=== PATIENT | male | born 1950 | race Hispanic/Latino ===

== ENCOUNTER 2021-05-18 15:00 | Inpatient (IN) | payer MEDICARE ==
[~2021-05-18] VITALS: Ht 167.6 cm; Wt 83.2 kg
[2021-05-18] MEDS: ISOSORBIDE MONO 30MG SR TAB PO SCH (15:33)
[2021-05-18] MEDS: LISINOPRIL 20 MG TABLET PO SCH (15:34)
[2021-05-18 15:46] LABS: BASOPHILS % (AUTO) 0.6 % (0.0-5.0); EOSINOPHILS % (AUTO) 2.6 % (0.0-8.0); HEMATOCRIT 36.8 % (42-54); LYMPHOCYTES % (AUTO) 29.2 % (21.0-51.0); MEAN CORPUSCULAR HEMOGLOBIN 30.4 pg (27.0-33.0); MEAN CORPUSCULAR HGB CONC 34.8 g/dL (32.0-36.0); MEAN CORPUSCULAR VOLUME 87.4 fL (79-99); MONOCYTES % (AUTO) 8.7 % (3.0-13.0); NEUTROPHILS % (AUTO) 57.5 % (40.0-77.0); PLATELET COUNT (AUTO) 141 K/uL (130-400); RED BLOOD CELL COUNT(AUTO) 4.21 MIL/uL (4.50-6.20); RED CELL DISTRIBUTION WIDTH 13.3 % (11.0-15.5); WHITE BLOOD COUNT (AUTO) 6.6 K/uL (4.8-10.8)
[2021-05-18 15:59] LABS: INR 1.05 (0.85-1.15); PROTHROMBIN TIME 11.4 SEC (9.6-11.6)
[2021-05-18 16:00] LABS: PARTIAL THROMBOPLASTIN TIME 26.2 SEC (26.3-35.5)
[2021-05-18] MEDS ORDERED: POTASSIUM CHLORIDE 10% ELIXIR 20 MEQ/15 ML UDCUP PO PRN (16:00)
[2021-05-18] MEDS ORDERED: KCL 20 MEQ ERTAB PO PRN (16:00)
[2021-05-18] MEDS ORDERED: POTASSIUM CHLORIDE 20MEQ/100ML 100 ML IV PRN (16:00)
[2021-05-18] MEDS ORDERED: LIDOCAINE HCL-MPF 1% 2ML VIAL IJ PRN (16:00)
[2021-05-18] MEDS ORDERED: ONDANSETRON 4MG INJ IV PRN (16:00)
[2021-05-18] MEDS ORDERED: ACETAMINOPHEN 325 MG TAB PO PRN ×2 (16:00)
[2021-05-18] MEDS ORDERED: DEXTROSE 50%-WATER 50 ML DISP.SYRIN IV PRN (16:00)
[2021-05-18] MEDS ORDERED: GLUCAGON 1MG KIT 1 MG ML IM PRN (16:00)
[2021-05-18] MEDS: ASPIRIN 81MG CHEW TAB PO SCH (16:16)
[2021-05-18] MEDS: INSULIN HUMULIN R 100 UNIT/ML 3ML SQ SCH ×2 (16:30→21:00)
[2021-05-18] MEDS ORDERED: INSULIN R PO SS1 SQ SCH (16:30)
[2021-05-18 16:53] LABS: CREATININE 1.1 mg/dL (0.5-1.5); POTASSIUM 3.8 mmol/L (3.5-5.1)
[2021-05-18 17:03] LABS: HEMOGLOBIN A1C 6.8 % (4.0-6.0)
[2021-05-18 18:04] LABS: APPEARANCE,URINE Clear (CLEAR); BILIRUBIN,URINE Negative (NEGATIVE); COLOR,URINE Yellow (YELLOW); GLUCOSE, URINE (UA) Negative (NEGATIVE); KETONES,URINE Negative (NEGATIVE); LEUKOCYTE ESTERASE ,URINE Negative (NEGATIVE); NITRATE,URINE Negative (NEGATIVE); OCCULT BLOOD,URINE Negative (NEGATIVE); PROTEIN,URINE POS 2+ mg/dL (NEGATIVE)
[2021-05-18 18:13] LABS: BACTERIA,URINE Rare /HPF (None Seen); RBC,URINE 0-1 /HPF (0-1); SQUAMOUS EPITHELIAL CELL,UR Rare /HPF (0-2); WBC,URINE 0-1 /HPF (0-1)
[2021-05-18] MEDS ORDERED: METO25TA6 PO (18:43)
[2021-05-18] MEDS ORDERED: GLYB5TAB8 PO (18:44)
[2021-05-18] MEDS ORDERED: ISOS20TA85 PO (18:44)
[2021-05-18] MEDS ORDERED: LISI20TA24 PO (18:45)
[2021-05-18] MEDS ORDERED: PRAV40TA3 PO (18:45)
[2021-05-18] MEDS ORDERED: METOPROLOL TARTRATE 25 MG TAB PO SCH (21:00)
[2021-05-18] MEDS ORDERED: ATORVASTATIN 10 MG TABLET PO SCH (21:00)
[2021-05-18] MEDS: FAMOTIDINE 20MG VIAL IV SCH (22:18)
[2021-05-18 23:30] VITALS: BP 168/83
[2021-05-19] VITALS (15 sets, daily range): BP systolic 135–172; BP diastolic 63–98
[2021-05-19 04:46] LABS: CHOLESTEROL 152 mg/dL (<200); HDL CHOLESTEROL 35 mg/dL (29-71); LDL DIRECT 81 mg/dL (0-99); TRIGLYCERIDES 166 mg/dL (30-200)
[2021-05-19] MEDS: INSULIN HUMULIN R 100 UNIT/ML 3ML SQ SCH ×3 (06:12→16:30)
[2021-05-19] MEDS ORDERED: IOHEXOL 350 MG/ML 100ML INFUS..BTL IV ONE (07:08)
[2021-05-19] MEDS ORDERED: NITROGLYCERIN 50MG VIAL IV ONE (07:08)
[2021-05-19] MEDS ORDERED: HEPARIN 10,000 UNIT/10ML (1,000 UNIT/ML) VIAL ONE ×3 (07:08→20:20)
[2021-05-19] MEDS ORDERED: IOHEXOL-350 50ML VIAL IV ONE (07:09)
[2021-05-19] MEDS ORDERED: LIDOCAINE HCL 400MG/20ML VIAL ONE (07:09)
[2021-05-19] MEDS ORDERED: MIDAZOLAM HCL 1 MG/ML 2ML VIAL ONE ×2 (07:31→19:43)
[2021-05-19] MEDS ORDERED: GLUCAGON 1MG KIT 1 MG ML IM PRN ×2 (08:00→21:30)
[2021-05-19] MEDS ORDERED: DEXTROSE 50%-WATER 50 ML DISP.SYRIN IV PRN ×2 (08:00→21:30)
[2021-05-19] MEDS: FAMOTIDINE 20MG VIAL IV SCH (08:37)
[2021-05-19] MEDS: ASPIRIN 81MG CHEW TAB PO SCH (08:37)
[2021-05-19] MEDS: LISINOPRIL 20 MG TABLET PO SCH (08:40)
[2021-05-19] MEDS: ISOSORBIDE MONO 30MG SR TAB PO SCH (08:40)
[2021-05-19] MEDS ORDERED: NOREPINEPHRINE BITARTRATE 8 MG in 0.9% NACL 250ML 250 ML IV PRN (16:00)
[2021-05-19] MEDS ORDERED: EPINEPHRINE PF 1MG AMP 10 MG in 0.9% NACL 250ML 240 ML IV PRN (16:00)
[2021-05-19] MEDS ORDERED: AMINOCAPROIC ACID 5,000MG VIAL 15,000 MG in 0.9% NACL 500ML IV.SOLN 420 ML IV PRN (16:00)
[2021-05-19 16:05] LABS: HEMATOCRIT 38.4 % (42-54); MEAN CORPUSCULAR HEMOGLOBIN 29.9 pg (27.0-33.0); MEAN CORPUSCULAR HGB CONC 33.6 g/dL (32.0-36.0); MEAN CORPUSCULAR VOLUME 88.9 fL (79-99); RED BLOOD CELL COUNT(AUTO) 4.32 MIL/uL (4.50-6.20); RED CELL DISTRIBUTION WIDTH 13.1 % (11.0-15.5); WHITE BLOOD COUNT (AUTO) 5.2 K/uL (4.8-10.8)
[2021-05-19 16:17] LABS: INR 1.1 (0.85-1.15); PROTHROMBIN TIME 11.9 SEC (9.6-11.6)
[2021-05-19 16:18] LABS: PARTIAL THROMBOPLASTIN TIME 27.1 SEC (26.3-35.5)
[2021-05-19 16:22] LABS: HEMOGLOBIN A1C 6.8 % (4.0-6.0)
[2021-05-19 16:42] LABS: CREATININE 1.3 mg/dL (0.5-1.5); POTASSIUM 3.5 mmol/L (3.5-5.1)
[2021-05-19 16:43] LABS: ALBUMIN 3.1 g/dL (3.5-5.0); BILIRUBIN,TOTAL 0.9 mg/dL (0.2-1.0); TOTAL PROTEIN, SERUM 6.9 g/dL (6.0-8.3)
[2021-05-19] MEDS ORDERED: CEFAZOLIN SODIUM 1 GM VIAL ONE (17:49)
[2021-05-19] MEDS ORDERED: PAPAVERINE HCL 30 MG/ML 2ML VIAL ONE (17:50)
[2021-05-19] MEDS ORDERED: NITROGLYCERIN 50MG/D5W 250ML 1 BOT ONE (18:03)
[2021-05-19] MEDS ORDERED: PROTAMINE SULFATE 10 MG/ML 25ML VIAL IV ONE (19:42)
[2021-05-19] MEDS ORDERED: LIDOCAINE PF 100MG/5ML (2%) SYRINGE 5ML ONE (19:42)
[2021-05-19] MEDS ORDERED: NOREPINEPHRINE BITARTRATE 1 MG/1 ML ML IV ONE (19:42)
[2021-05-19] MEDS ORDERED: EPINEPHRINE PF 1MG AMP ONE (19:42)
[2021-05-19] MEDS ORDERED: SODIUM BICARB 50MEQ 50ML VIAL 100 ML ONE (19:42)
[2021-05-19] MEDS ORDERED: AMINOCAPROIC ACID 5,000MG VIAL ONE (19:42)
[2021-05-19] MEDS ORDERED: ESMOLOL HCL 10 MG/ML 10 ML VIAL ONE (19:42)
[2021-05-19] MEDS ORDERED: FENTANYL CITRATE PF 50 MCG/1 ML 20ML VIAL IJ ONE (19:42)
[2021-05-19] MEDS ORDERED: KETAMINE 50MG/ML SYRINGE 50 MG/ML DISP.SYRIN IV ONE (19:43)
[2021-05-19] MEDS ORDERED: PROPOFOL 10 MG/ML 20ML VIAL IV ONE (19:43)
[2021-05-19] MEDS ORDERED: ROCURONIUM 10MG/1ML SYR 10 MG/ML ML ONE (19:43)
[2021-05-19] MEDS ORDERED: CLINDAMYCIN 900MG/6ML INJ ONE (19:55)
[2021-05-19 20:42] LABS: ABG BASE EXCESS -3.4 mmol/L (-2.0-3.0); ABG HCO3 22.3 mmol/L (21.0-28.0); ABG OXYGEN SATURATION 99.4 % (95.0-99.0); ABG PCO2 43 mmHg (35-48)
[2021-05-19] MEDS ORDERED: 0.9%NACL 10ML VIAL IVP PRN (21:30)
[2021-05-19] MEDS ORDERED: NITROGLYCERIN 50MG/D5W 250ML 250 BOT IV SCH (21:30)
[2021-05-19] MEDS ORDERED: ACETAMINOPHEN 650 MG SUPPOSITORY RC PRN (21:30)
[2021-05-19] MEDS ORDERED: 0.9% NACL 500ML IV.SOLN 500 ML IV SCH (21:30)
[2021-05-19] MEDS ORDERED: AMINOCAPROIC ACID 5,000MG VIAL 15,000 MG in 0.9% NACL 250ML 250 ML IV SCH (21:30)
[2021-05-19] MEDS ORDERED: PROPOFOL 1000 MG/100 ML 100 ML IV PRN (21:30)
[2021-05-19] MEDS ORDERED: CALCIUM GLUC 1GM 1 GM in 0.9%NACL 50ML 50 ML IV PRN (21:30)
[2021-05-19] MEDS ORDERED: TRAMADOL HCL 50 MG TABLET PO PRN (21:30)
[2021-05-19] MEDS ORDERED: INSULIN REGULAR, HUMAN 3ML 100 UNIT in 0.9%NACL 100ML 99 ML IV SCH ×2 (21:30)
[2021-05-19] MEDS ORDERED: MAGNESIUM 2GM PREMIX 50ML 50 ML IV PRN (21:30)
[2021-05-19] MEDS ORDERED: 0.9%NACL 1000ML 1,000 ML IV SCH (21:30)
[2021-05-19] MEDS ORDERED: POTASSIUM PHOS 15 mMOL+NS250ML 250 ML IV PRN (21:30)
[2021-05-19] MEDS ORDERED: EPINEPHRINE PF 1MG AMP 10 MG in DEXTROSE 5%-WATER 250 ML IV PRN (21:30)
[2021-05-19] MEDS ORDERED: NOREPINEPHRIN 4MG/NS 250ML 250 ML IV PRN (21:30)
[2021-05-19] MEDS ORDERED: ACETAMINOPHEN 325 MG TAB PO PRN (21:30)
[2021-05-19] MEDS ORDERED: ONDANSETRON 4MG INJ IV PRN (21:30)
[2021-05-19] MEDS ORDERED: MORPHINE 2 MG SYG IV PRN ×2 (21:30)
[2021-05-19 21:39] LABS: ABG HCO3 19.7 mmol/L (21.0-28.0); ABG OXYGEN SATURATION 99.2 % (95.0-99.0); ABG PCO2 35 mmHg (35-48)
[2021-05-19] MEDS ORDERED: ASPIRIN 81MG CHEW TAB NG ONE (22:00)
[2021-05-19] MEDS ORDERED: NOREPINEPHRIN 8MG/250ML NS PMX 250 ML IV PRN (22:00)
[2021-05-19 22:42] LABS: HEMATOCRIT 32.7 % (42-54); MEAN CORPUSCULAR HEMOGLOBIN 29.8 pg (27.0-33.0); MEAN CORPUSCULAR HGB CONC 33.3 g/dL (32.0-36.0); MEAN CORPUSCULAR VOLUME 89.3 fL (79-99); RED BLOOD CELL COUNT(AUTO) 3.66 MIL/uL (4.50-6.20); RED CELL DISTRIBUTION WIDTH 13.2 % (11.0-15.5); WHITE BLOOD COUNT (AUTO) 15.2 K/uL (4.8-10.8)
[2021-05-19 22:53] LABS: INR 1.29 (0.85-1.15); PROTHROMBIN TIME 13.7 SEC (9.6-11.6)
[2021-05-19 22:54] LABS: CREATININE 1.1 mg/dL (0.5-1.5); MAGNESIUM 1.3 mg/dL (1.80-2.40); PARTIAL THROMBOPLASTIN TIME 28.2 SEC (26.3-35.5); PHOSPHORUS 4.3 mg/dL (2.5-4.9); POTASSIUM 3.4 mmol/L (3.5-5.1)
[2021-05-19 22:55] LABS: ABG BASE EXCESS -2.4 mmol/L (-2.0-3.0); ABG HCO3 22.3 mmol/L (21.0-28.0); ABG OXYGEN SATURATION 98.2 % (95.0-99.0); ABG PCO2 38 mmHg (35-48)
[2021-05-19] MEDS: POTASSIUM CHLORIDE 20MEQ/100ML 100 ML IV PRN (23:19)
[2021-05-20] VITALS (46 sets, daily range): BP systolic 76–179; BP diastolic 42–91
[2021-05-20 00:10] LABS: ABG BASE EXCESS -3.2 mmol/L (-2.0-3.0); ABG HCO3 20.4 mmol/L (21.0-28.0); ABG OXYGEN SATURATION 97.3 % (95.0-99.0); ABG PCO2 32 mmHg (35-48)
[2021-05-20] MEDS: SODIUM BICARB 50MEQ 50ML VIAL IV PRN ×2 (00:15→00:29)
[2021-05-20 01:26] LABS: ABG HCO3 23.8 mmol/L (21.0-28.0); ABG OXYGEN SATURATION 98.3 % (95.0-99.0); ABG PCO2 36 mmHg (35-48)
[2021-05-20 03:35] LABS: ABG BASE EXCESS 0.8 mmol/L (-2.0-3.0); ABG HCO3 24.5 mmol/L (21.0-28.0); ABG OXYGEN SATURATION 98.6 % (95.0-99.0); ABG PCO2 36 mmHg (35-48)
[2021-05-20 03:57] LABS: HEMATOCRIT 31.5 % (42-54); MEAN CORPUSCULAR HEMOGLOBIN 29.8 pg (27.0-33.0); MEAN CORPUSCULAR HGB CONC 33.7 g/dL (32.0-36.0); MEAN CORPUSCULAR VOLUME 88.5 fL (79-99); RED BLOOD CELL COUNT(AUTO) 3.56 MIL/uL (4.50-6.20); RED CELL DISTRIBUTION WIDTH 13.6 % (11.0-15.5); WHITE BLOOD COUNT (AUTO) 21.9 K/uL (4.8-10.8)
[2021-05-20 04:09] LABS: INR 1.21 (0.85-1.15)
[2021-05-20 04:10] LABS: CREATININE 1.6 mg/dL (0.5-1.5); MAGNESIUM 1.5 mg/dL (1.80-2.40); PHOSPHORUS 3.3 mg/dL (2.5-4.9); POTASSIUM 4.1 mmol/L (3.5-5.1)
[2021-05-20 04:11] LABS: PARTIAL THROMBOPLASTIN TIME 26.9 SEC (26.3-35.5)
[2021-05-20 05:02] LABS: ABG BASE EXCESS 0.7 mmol/L (-2.0-3.0); ABG HCO3 25.2 mmol/L (21.0-28.0); ABG OXYGEN SATURATION 98.2 % (95.0-99.0); ABG PCO2 40 mmHg (35-48)
[2021-05-20] MEDS: CLINDAMYCIN IVPB 900MG/50ML 50 ML IV SCH ×3 (05:10→21:50)
[2021-05-20] MEDS: ALBUMIN (HUMAN) 5% 250 ML IV PRN ×2 (07:25→07:36)
[2021-05-20] MEDS: TRAMADOL HCL 50 MG TABLET PO PRN ×3 (07:25→18:25)
[2021-05-20] MEDS ORDERED: ALBUMIN (HUMAN) 5% 250 ML IV ONE (07:35)
[2021-05-20] MEDS: FAMOTIDINE 20MG VIAL IV SCH ×2 (07:47→21:00)
[2021-05-20] MEDS: FUROSEMIDE 20MG VIAL IV SCH (07:47)
[2021-05-20] MEDS: ASPIRIN 81MG CHEW TAB PO SCH (07:48)
[2021-05-20] MEDS ORDERED: FAMOTIDINE 20MG TAB ONE (20:33)
[2021-05-20] MEDS: ATORVASTATIN 40 MG TABLET PO SCH (21:50)
[2021-05-21] VITALS (14 sets, daily range): BP systolic 95–162; BP diastolic 42–77
[2021-05-21 04:08] LABS: HEMATOCRIT 26.1 % (42-54); MEAN CORPUSCULAR HEMOGLOBIN 29.3 pg (27.0-33.0); MEAN CORPUSCULAR HGB CONC 32.2 g/dL (32.0-36.0); MEAN CORPUSCULAR VOLUME 90.9 fL (79-99); RED BLOOD CELL COUNT(AUTO) 2.87 MIL/uL (4.50-6.20); RED CELL DISTRIBUTION WIDTH 13.7 % (11.0-15.5); WHITE BLOOD COUNT (AUTO) 11.2 K/uL (4.8-10.8)
[2021-05-21 04:24] LABS: CREATININE 1.5 mg/dL (0.5-1.5); POTASSIUM 3.4 mmol/L (3.5-5.1)
[2021-05-21] MEDS: POTASSIUM CHLORIDE 20MEQ/100ML 100 ML IV PRN ×2 (04:41→08:07)
[2021-05-21] MEDS: FAMOTIDINE 20MG VIAL IV SCH (08:05)
[2021-05-21] MEDS: ASPIRIN 81MG CHEW TAB PO SCH (08:05)
[2021-05-21] MEDS: FUROSEMIDE 20MG VIAL IV SCH (08:05)
[2021-05-21] MEDS: FAMOTIDINE 20MG TAB PO SCH ×2 (09:00→21:23)
[2021-05-21] MEDS: METOPROLOL TARTRATE 25 MG TAB PO SCH ×2 (09:00→21:23)
[2021-05-21] MEDS: FUROSEMIDE 20 MG TABLET PO SCH (09:00)
[2021-05-21] MEDS: INSULIN HUMULIN R 100 UNIT/ML 3ML SQ SCH ×3 (11:51→21:24)
[2021-05-21] MEDS ORDERED: DIPHENHYDRAMINE HCL 25 MG CAPSULE PO ONE (14:30)
[2021-05-21] MEDS: ACETAMINOPHEN 325 MG TAB PO PRN (14:32)
[2021-05-21] MEDS ORDERED: HALOPERIDOL INJ 5 MG/ML VIAL ONE (15:40)
[2021-05-21] MEDS: HALOPERIDOL INJ 5 MG/ML VIAL IV PRN (15:46)
[2021-05-21] MEDS ORDERED: HALOPERIDOL INJ 5 MG/ML VIAL IM SCH (16:00)
[2021-05-21] MEDS ORDERED: DEXMEDETOMIDINE 400MCG/NS100ML IV SCH (16:00)
[2021-05-21] MEDS: ATORVASTATIN 40 MG TABLET PO SCH (21:23)
[2021-05-22 03:52] VITALS: BP 127/74
[2021-05-22 03:56] LABS: MEAN CORPUSCULAR HEMOGLOBIN 29.8 pg (27.0-33.0); MEAN CORPUSCULAR HGB CONC 33.9 g/dL (32.0-36.0); MEAN CORPUSCULAR VOLUME 87.8 fL (79-99); RED BLOOD CELL COUNT(AUTO) 3.19 MIL/uL (4.50-6.20); RED CELL DISTRIBUTION WIDTH 13.8 % (11.0-15.5); WHITE BLOOD COUNT (AUTO) 11.2 K/uL (4.8-10.8)
[2021-05-22 04:13] LABS: CREATININE 1.4 mg/dL (0.5-1.5); POTASSIUM 3.7 mmol/L (3.5-5.1)
[2021-05-22] MEDS: HALOPERIDOL INJ 5 MG/ML VIAL IV PRN (04:44)
[2021-05-22] MEDS: INSULIN HUMULIN R 100 UNIT/ML 3ML SQ SCH ×4 (06:12→21:00)
[2021-05-22] MEDS: FAMOTIDINE 20MG TAB PO SCH ×2 (10:02→20:56)
[2021-05-22] MEDS: FUROSEMIDE 20 MG TABLET PO SCH (10:03)
[2021-05-22] MEDS: ASPIRIN 81MG CHEW TAB PO SCH (10:03)
[2021-05-22] MEDS: METOPROLOL TARTRATE 25 MG TAB PO SCH ×2 (10:03→20:56)
[2021-05-22] MEDS: ENOXAPARIN SODIUM 30 MG/0.3 ML SQ SCH (10:04)
[2021-05-22 12:00] VITALS: BP 129/78
[2021-05-22 16:00] VITALS: BP 160/88
[2021-05-22] MEDS ORDERED: DiphenhydrAMINE HCL 50 MG/ML VIAL IV ONE (19:00)
[2021-05-22 20:00] VITALS: BP 161/84
[2021-05-22] MEDS ORDERED: DiphenhydrAMINE HCL 50 MG/ML VIAL ONE (20:47)
[2021-05-22] MEDS: ATORVASTATIN 40 MG TABLET PO SCH (20:56)
[2021-05-22] MEDS: ACETAMINOPHEN 325 MG TAB PO PRN (20:58)
[2021-05-23] VITALS: BP 164/68
[2021-05-23] MEDS: HALOPERIDOL INJ 5 MG/ML VIAL IV PRN (02:12)
[2021-05-23 04:00] VITALS: BP 160/77
[2021-05-23 05:10] LABS: HEMATOCRIT 27.8 % (42-54); MEAN CORPUSCULAR HEMOGLOBIN 30.1 pg (27.0-33.0); MEAN CORPUSCULAR HGB CONC 33.1 g/dL (32.0-36.0); MEAN CORPUSCULAR VOLUME 90.8 fL (79-99); RED BLOOD CELL COUNT(AUTO) 3.06 MIL/uL (4.50-6.20); RED CELL DISTRIBUTION WIDTH 13.8 % (11.0-15.5)
[2021-05-23 05:24] LABS: CREATININE 1.2 mg/dL (0.5-1.5); PHOSPHORUS 2.5 mg/dL (2.5-4.9); POTASSIUM 3.1 mmol/L (3.5-5.1)
[2021-05-23] MEDS ORDERED: LIDOCAINE HCL-MPF 1% 2ML VIAL IV PRN (07:30)
[2021-05-23] MEDS ORDERED: KCL 20 MEQ ERTAB PO PRN (07:30)
[2021-05-23] MEDS ORDERED: POTASSIUM CHLORIDE 20MEQ/100ML 100 ML IV PRN (07:30)
[2021-05-23] MEDS ORDERED: POTASSIUM CHLORIDE 10% ELIXIR 20 MEQ/15 ML UDCUP PO PRN (07:30)
[2021-05-23 07:54] VITALS: BP 151/86
[2021-05-23] MEDS ORDERED: LOSARTAN 25 MG TABLET PO SCH (09:00)
[2021-05-23] MEDS: METOPROLOL TARTRATE 25 MG TAB PO SCH ×2 (11:04→21:27)
[2021-05-23] MEDS: ASPIRIN 81MG CHEW TAB PO SCH (11:05)
[2021-05-23] MEDS: FUROSEMIDE 20 MG TABLET PO SCH (11:05)
[2021-05-23] MEDS: FAMOTIDINE 20MG TAB PO SCH ×2 (11:05→21:23)
[2021-05-23] MEDS: INSULIN HUMULIN R 100 UNIT/ML 3ML SQ SCH ×4 (11:09→21:00)
[2021-05-23 11:30] VITALS: BP 138/75
[2021-05-23 16:01] VITALS: BP 152/86
[2021-05-23] MEDS: ENOXAPARIN SODIUM 30 MG/0.3 ML SQ SCH (17:22)
[2021-05-23 19:30] VITALS: BP_SYST 111; BP_SYST 158; BP_DIAS 71; BP_DIAS 93
[2021-05-23] MEDS ORDERED: MEMANTINE HCL 5 MG TABLET PO SCH (21:00)
[2021-05-23] MEDS ORDERED: HYDROXYZINE 25 MG TABLET PO ONE (21:00)
[2021-05-23] MEDS: ATORVASTATIN 40 MG TABLET PO SCH (21:23)
[2021-05-24] VITALS: BP 165/93
[2021-05-24] MEDS: HALOPERIDOL INJ 5 MG/ML VIAL IV PRN (02:54)
[2021-05-24] MEDS: INSULIN HUMULIN R 100 UNIT/ML 3ML SQ SCH ×3 (07:25→16:12)
[2021-05-24 08:59] VITALS: BP 156/95
[2021-05-24] MEDS ORDERED: LOSARTAN 25 MG TABLET PO SCH (09:00)
[2021-05-24] MEDS: FAMOTIDINE 20MG TAB PO SCH (09:43)
[2021-05-24] MEDS: ENOXAPARIN SODIUM 30 MG/0.3 ML SQ SCH (09:43)
[2021-05-24] MEDS: FUROSEMIDE 20 MG TABLET PO SCH (09:43)
[2021-05-24] MEDS: ASPIRIN 81MG CHEW TAB PO SCH (09:43)
[2021-05-24] MEDS: METOPROLOL TARTRATE 25 MG TAB PO SCH (09:44)
[2021-05-24 12:56] VITALS: BP 141/80
[2021-05-24] MEDS ORDERED: METOPROLOL TARTRATE 25 MG TAB PO SCH (21:00)
== END 2021-05-24 16:50 | DRG 233 ==
LOC: EDH 15:00 → EDHIP 15:01 → 4BH 22:16 → 2CV 05-19 22:11 → 2DH 05-20 22:25
PROVIDERS: ADMIT Internal Medicine; ATTEND Internal Medicine
PROC: 06BQ4ZZ Excision of Left Saphenous Vein, Percutaneous Endoscopic Approach (ICD-10-PCS; 2021-05-19)
PROC: B2111ZZ Fluoroscopy of Multiple Coronary Arteries using Low Osmolar Contrast (ICD-10-PCS; 2021-05-19)
PROC: 02100Z9 Bypass Coronary Artery, One Artery from Left Internal Mammary, Open Approach (ICD-10-PCS; principal; 2021-05-19 19:42)
PROC: 4A023N7 Measurement of Cardiac Sampling and Pressure, Left Heart, Percutaneous Approach (ICD-10-PCS; 2021-05-19 19:42)
PROC: 021109W Bypass Coronary Artery, Two Arteries from Aorta with Autologous Venous Tissue, Open Approach (ICD-10-PCS; 2021-05-19 19:42)
DX: I25.110 Atherosclerotic heart disease of native coronary artery with unstable angina pectoris (principal); J95.1 Acute pulmonary insufficiency following thoracic surgery; F05 Delirium due to known physiological condition; E11.51 Type 2 diabetes mellitus with diabetic peripheral angiopathy without gangrene; E66.9 Obesity, unspecified; Z68.31 Body mass index [BMI] 31.0-31.9, adult; E78.5 Hyperlipidemia, unspecified; Z20.822 Contact with and (suspected) exposure to COVID-19; F41.1 Generalized anxiety disorder; E78.00 Pure hypercholesterolemia, unspecified; E87.70 Fluid overload, unspecified; D64.9 Anemia, unspecified; F03.90 Unspecified dementia, unspecified severity, without behavioral disturbance, psychotic disturbance, mood disturbance, and anxiety; I11.0 Hypertensive heart disease with heart failure; I50.9 Heart failure, unspecified; Z88.0 Allergy status to penicillin; I25.2 Old myocardial infarction; Z79.899 Other long term (current) drug therapy; Z87.891 Personal history of nicotine dependence; Z82.49 Family history of ischemic heart disease and other diseases of the circulatory system
CPT/HCPCS: 36415; 71045; 80048; 80053; 80061; 81001; 82435; 82803; 82947; 82948; 83036; 83605; 83735; 83880; 84100; 84132; 84295; 84484; 85018; 85025; 85027; 85347; 85610; 85730; 86850; 86900; 86901; 86923; 87635; 93005; 93458; 94002; 94003; 94150; 97039; 99156; 99157; A7048; C1760; C1894; G0378; J0171; J0690; J1200; J1630; J1644; J1650; J1815; J1940; J2001; J2250; J2405; J2440; J2704; J2720; J3010; J3475; J3480; J3490; J7030; J7040; P9045; Q0163; Q9967

== ENCOUNTER → 2021-07-19 | Outpatient (CLI) | payer MEDICARE, OTHER | END | disposition home or self-care (01) | LOC: SHCH 12:33 | PROVIDERS: ATTEND Internal Medicine Cardiovascular Disease | DX: I73.9 Peripheral vascular disease, unspecified (principal) | CPT/HCPCS: 93925 ==

== ENCOUNTER → 2022-03-08 | Outpatient (CLI) | payer OTHER ==
[~2022-03-08] MED LIST: APIX5TAB PO; ATOR40TA71 PO; CARV6.25 PO; FURO20TA4 PO; GLYB5TAB8 PO; ISOS30TA92 PO; LISI1TAB51 PO; MEMA1TAB2 PO; MEMA5TAB42 PO; NITR0.4T50 SL; POTA-79 PO
== END | disposition home or self-care (01) ==
LOC: RAH 10:41
PROVIDERS: ATTEND Internal Medicine Cardiovascular Disease
DX: I73.9 Peripheral vascular disease, unspecified (principal); I10 Essential (primary) hypertension; E11.9 Type 2 diabetes mellitus without complications; E78.5 Hyperlipidemia, unspecified; I25.119 Atherosclerotic heart disease of native coronary artery with unspecified angina pectoris; R60.0 Localized edema; I80.3 Phlebitis and thrombophlebitis of lower extremities, unspecified
CPT/HCPCS: 93971

== ENCOUNTER → 2022-03-15 | Outpatient (CLI) | payer OTHER ==
[~2022-03-15] MED LIST changes: +ALBUMIN (HUMAN) 25% 200 ML IV SCH; -APIX5TAB PO; -CARV6.25 PO; -MEMA5TAB42 PO
[2022-03-15 10:13] LABS: INR 1.15 (0.85-1.15); PROTHROMBIN TIME 12.4 SEC (9.6-11.6)
[2022-03-15 10:14] LABS: PARTIAL THROMBOPLASTIN TIME 31.1 SEC (26.3-35.5)
[2022-03-15 16:11] LABS: APPEARANCE BODY FLUID SLIGHTLY CLOUDY (CLEAR); BODY FLUID WBC 354 /cu. mm.; COLOR,BODY FLUID YELLOW (LT YELLOW); SPECIMENTYPE,BODY FLUID ASCITES; TOTAL VOLUME,BODY FLUID 6700 mL
[2022-03-15 16:12] LABS: BODY FLUID RBC 128 /cu. mm.
[2022-03-15 16:44] LABS: BF LYMPHOCYTE 54 %; BF MESOTHELIAL 8 %; BF MONOCYTE 4 %
== END | disposition home or self-care (01) ==
LOC: RAH 09:21
PROVIDERS: ATTEND Internal Medicine Gastroenterology
DX: R18.8 Other ascites (principal); K74.69 Other cirrhosis of liver; D64.9 Anemia, unspecified; I11.0 Hypertensive heart disease with heart failure; I50.9 Heart failure, unspecified; I25.10 Atherosclerotic heart disease of native coronary artery without angina pectoris; E66.9 Obesity, unspecified; E11.9 Type 2 diabetes mellitus without complications; E78.00 Pure hypercholesterolemia, unspecified; Z79.01 Long term (current) use of anticoagulants; Z79.899 Other long term (current) drug therapy
CPT/HCPCS: 49083; 89051; 85610; 85730; 87071; 87205; 36415; C1729; 96365

== ENCOUNTER 2022-03-26 09:18 | Day surgery (SDC) | payer OTHER ==
[2022-03-23 11:17] LABS: BASOPHILS % (AUTO) 0.6 % (0.0-5.0); EOSINOPHILS % (AUTO) 3.9 % (0.0-8.0); LYMPHOCYTES % (AUTO) 31.6 % (21.0-51.0); MEAN CORPUSCULAR HEMOGLOBIN 27.8 pg (27.0-33.0); MEAN CORPUSCULAR HGB CONC 31.6 g/dL (32.0-36.0); MEAN CORPUSCULAR VOLUME 88.1 fL (79-99); MONOCYTES % (AUTO) 11.2 % (3.0-13.0); NEUTROPHILS % (AUTO) 52.1 % (40.0-77.0); PLATELET COUNT (AUTO) 155 K/uL (130-400); RED BLOOD CELL COUNT(AUTO) 3.52 MIL/uL (4.50-6.20); RED CELL DISTRIBUTION WIDTH 15.2 % (11.0-15.5); WHITE BLOOD COUNT (AUTO) 5.1 K/uL (4.8-10.8)
[2022-03-23 11:40] LABS: CREATININE 1.5 mg/dL (0.5-1.5); POTASSIUM 4.8 mmol/L (3.5-5.1)
[2022-03-23 11:48] LABS: INR 1.24 (0.85-1.15); PROTHROMBIN TIME 13.4 SEC (9.6-11.6)
[2022-03-23 11:49] LABS: PARTIAL THROMBOPLASTIN TIME 34.4 SEC (26.3-35.5)
[2022-03-23 14:54] VITALS: BP 100/63
[~2022-03-26] VITALS: Ht 165.1 cm; Wt 83.9 kg
[~2022-03-26 09:18] MED LIST changes: -ALBUMIN (HUMAN) 25% 200 ML IV SCH
[2022-03-26 09:47] VITALS: BP 143/70
[2022-03-26] MEDS ORDERED: LIDOCAINE HCL 1% 20 ML VIAL ONE (12:21)
[2022-03-26] MEDS ORDERED: IOHEXOL-350 75 ML VIAL IV ONE (12:22)
[2022-03-26] MEDS ORDERED: MIDAZOLAM HCL 1 MG/ML 2ML VIAL ONE (12:22)
[2022-03-26] MEDS ORDERED: FENTANYL CITRATE PF 50 MCG/1 ML 2ML VIAL ONE (12:22)
[2022-03-26] MEDS ORDERED: 0.9%NACL 1000ML 1,000 ML IV ONE (12:32)
[2022-03-26 13:15] VITALS: BP 147/72
[2022-03-26 13:30] VITALS: BP 145/75
[2022-03-26 13:45] VITALS: BP 143/72
[2022-03-26 14:00] VITALS: BP 149/75
== END 2022-03-26 14:20 | disposition home or self-care (01) ==
LOC: DAH 09:18
PROVIDERS: ATTEND Student in an Organized Health Care Education/Training Program
DX: K80.13 Calculus of gallbladder with acute and chronic cholecystitis with obstruction (principal); Z86.718 Personal history of other venous thrombosis and embolism; K74.69 Other cirrhosis of liver; I10 Essential (primary) hypertension; E66.9 Obesity, unspecified; I25.10 Atherosclerotic heart disease of native coronary artery without angina pectoris; Z95.1 Presence of aortocoronary bypass graft; Z98.890 Other specified postprocedural states; Z88.0 Allergy status to penicillin; Z79.01 Long term (current) use of anticoagulants; Z90.49 Acquired absence of other specified parts of digestive tract; Z68.30 Body mass index [BMI] 30.0-30.9, adult
CPT/HCPCS: 80048; 85025; 85610; 85730; 36415; 37191; 82948 ×2; C1769; C1894; C1880; Q9965; A4663; J7030; J1644; Q9967; A4215; A6402; A4221; A6206; J2250; J3010

== ENCOUNTER 2022-03-28 09:00 | Inpatient (IN) | payer OTHER ==
[~2022-03-28] VITALS: Ht 165.1 cm; Wt 84.9 kg
[~2022-03-28 09:00] MED LIST changes: -LISI1TAB51 PO; -MEMA1TAB2 PO
[2022-03-28 11:42] LABS: BASOPHILS % (AUTO) 0.7 % (0.0-5.0); EOSINOPHILS % (AUTO) 4.1 % (0.0-8.0); HEMATOCRIT 33.1 % (42-54); MEAN CORPUSCULAR HEMOGLOBIN 27.6 pg (27.0-33.0); MEAN CORPUSCULAR HGB CONC 31.7 g/dL (32.0-36.0); MEAN CORPUSCULAR VOLUME 87.1 fL (79-99); MONOCYTES % (AUTO) 10.8 % (3.0-13.0); NEUTROPHILS % (AUTO) 56.1 % (40.0-77.0); PLATELET COUNT (AUTO) 205 K/uL (130-400); RED CELL DISTRIBUTION WIDTH 15.6 % (11.0-15.5); WHITE BLOOD COUNT (AUTO) 6.1 K/uL (4.8-10.8)
[2022-03-28 11:54] LABS: INR 1.08 (0.85-1.15); PROTHROMBIN TIME 11.7 SEC (9.6-11.6)
[2022-03-28 11:56] LABS: PARTIAL THROMBOPLASTIN TIME 28.5 SEC (26.3-35.5)
[2022-03-28 11:59] LABS: ALBUMIN 2.5 g/dL (3.5-5.0); CREATININE 1.4 mg/dL (0.5-1.5); POTASSIUM 4.4 mmol/L (3.5-5.1); TOTAL PROTEIN, SERUM 7.2 g/dL (6.0-8.3)
[2022-03-28 12:00] LABS: APPEARANCE,URINE CLEAR (CLEAR); BILIRUBIN,URINE NEGATIVE (NEGATIVE); COLOR,URINE LIGHT-YELLOW (YELLOW); GLUCOSE, URINE (UA) NEGATIVE (NEGATIVE); KETONES,URINE NEGATIVE (NEGATIVE); LEUKOCYTE ESTERASE ,URINE NEGATIVE Leu/uL (NEGATIVE); NITRATE,URINE NEGATIVE (NEGATIVE); OCCULT BLOOD,URINE NEGATIVE (NEGATIVE); PROTEIN,URINE NEGATIVE (NEGATIVE); UROBILINOGEN,URINE 0.2 mg/dL (0.2-1.0)
[2022-03-29] MEDS ORDERED: 0.9%NACL 1000ML 1,000 ML IV SCH (11:00)
[2022-03-30 11:55] VITALS: BP 127/65
[2022-03-30] MEDS ORDERED: CARV6.25 PO (12:51)
[2022-03-30] MEDS ORDERED: MEMA5TAB42 PO (12:51)
[2022-03-30] MEDS ORDERED: APIX5TAB PO (12:51)
[2022-04-02] VITALS (26 sets, daily range): BP systolic 97–142; BP diastolic 63–79
[2022-04-02] MEDS: VANCOMYCIN 1G/250ML KIT 250 ML IV SCH ×2 (06:00→08:30)
[2022-04-02] MEDS ORDERED: BUPIVACAINE/PF 0.5% 30ML VIAL ONE (06:29)
[2022-04-02] MEDS ORDERED: FAMOTIDINE 20MG VIAL IV ONE (07:40)
[2022-04-02] MEDS ORDERED: DEXTROSE 50%-WATER 50 ML DISP.SYRIN IV ONE (07:40)
[2022-04-02] MEDS ORDERED: LIDOCAINE PF 100MG/5ML (2%) SYRINGE 5ML ONE (07:47)
[2022-04-02] MEDS ORDERED: GLYCOPYRROLATE 1 MG/5 ML SYRINGE ONE (07:48)
[2022-04-02] MEDS ORDERED: ROCURONIUM BROMIDE 10MG/1ML 5ML VL ONE (07:48)
[2022-04-02] MEDS ORDERED: PROPOFOL 10 MG/ML 20ML VIAL IV ONE (07:48)
[2022-04-02] MEDS ORDERED: FENTANYL CITRATE PF 50 MCG/1 ML 2ML VIAL ONE ×2 (07:48→11:30)
[2022-04-02] MEDS ORDERED: NOREPINEPHRINE BITARTRATE 1 MG/1 ML ML IV ONE (07:58)
[2022-04-02] MEDS ORDERED: SUCCINYLCHOLINE 200MG/10ML SYR ONE (07:58)
[2022-04-02] MEDS ORDERED: INDOCYANINE GREEN 25 MG VIAL IJ ONE (08:05)
[2022-04-02] MEDS ORDERED: NEOSTIGMINE 5MG/5ML SYR IV ONE (10:26)
[2022-04-02] MEDS ORDERED: ONDANSETRON 4MG INJ ONE (10:48)
[2022-04-02 12:56] LABS: BASOPHILS % (AUTO) 0.3 % (0.0-5.0); EOSINOPHILS % (AUTO) 1.5 % (0.0-8.0); HEMATOCRIT 31.3 % (42-54); LYMPHOCYTES % (AUTO) 18.5 % (21.0-51.0); MEAN CORPUSCULAR HEMOGLOBIN 27.7 pg (27.0-33.0); MEAN CORPUSCULAR HGB CONC 31.9 g/dL (32.0-36.0); MEAN CORPUSCULAR VOLUME 86.7 fL (79-99); MONOCYTES % (AUTO) 5.4 % (3.0-13.0); NEUTROPHILS % (AUTO) 73.9 % (40.0-77.0); PLATELET COUNT (AUTO) 123 K/uL (130-400); RED BLOOD CELL COUNT(AUTO) 3.61 MIL/uL (4.50-6.20); RED CELL DISTRIBUTION WIDTH 15.2 % (11.0-15.5); WHITE BLOOD COUNT (AUTO) 6.9 K/uL (4.8-10.8)
[2022-04-02] MEDS ORDERED: LABETALOL 20MG VIAL IV PRN (13:00)
[2022-04-02] MEDS ORDERED: ISOSORBIDE MONO 30MG SR TAB PO PRN (13:00)
[2022-04-02] MEDS ORDERED: MORPHINE 4 MG SYG IVP PRN (13:00)
[2022-04-02] MEDS ORDERED: NITROGLYCERIN 0.4 MG SL TAB SL PRN (13:00)
[2022-04-02 13:16] LABS: ALBUMIN 2.3 g/dL (3.5-5.0); CREATININE 1.3 mg/dL (0.5-1.5); POTASSIUM 4.5 mmol/L (3.5-5.1); TOTAL PROTEIN, SERUM 5.9 g/dL (6.0-8.3)
[2022-04-02 13:26] LABS: HEMOGLOBIN A1C 5.5 % (4.0-6.0)
[2022-04-02] MEDS: SIMETHICONE 80 MG TAB.CHEW PO SCH ×2 (14:59→20:12)
[2022-04-02] MEDS: MEMANTINE HCL 5 MG TABLET PO SCH (20:11)
[2022-04-02] MEDS: CARVEDILOL 6.25 MG TABLET PO SCH (20:12)
[2022-04-03 04:00] VITALS: BP 100/60
[2022-04-03 04:51] LABS: HEMATOCRIT 28.3 % (42-54); MEAN CORPUSCULAR HEMOGLOBIN 27.6 pg (27.0-33.0); MEAN CORPUSCULAR HGB CONC 32.5 g/dL (32.0-36.0); RED BLOOD CELL COUNT(AUTO) 3.33 MIL/uL (4.50-6.20); WHITE BLOOD COUNT (AUTO) 8.1 K/uL (4.8-10.8)
[2022-04-03 05:12] LABS: ALBUMIN 2.1 g/dL (3.5-5.0); CREATININE 1.5 mg/dL (0.5-1.5); POTASSIUM 5.3 mmol/L (3.5-5.1); TOTAL PROTEIN, SERUM 5.6 g/dL (6.0-8.3)
[2022-04-03] MEDS: VANCOMYCIN 1G/250ML KIT 250 ML IV SCH (06:00)
[2022-04-03 07:30] VITALS: BP 110/56
[2022-04-03] MEDS ORDERED: GLYBURIDE 5 MG TABLET PO SCH (07:30)
[2022-04-03] MEDS: KCL 20 MEQ ERTAB PO SCH (09:00)
[2022-04-03] MEDS: FUROSEMIDE 20 MG TABLET PO SCH (10:07)
[2022-04-03] MEDS: SIMETHICONE 80 MG TAB.CHEW PO SCH ×3 (10:08→20:55)
[2022-04-03] MEDS: CARVEDILOL 6.25 MG TABLET PO SCH ×2 (10:09→20:55)
[2022-04-03] MEDS: ATORVASTATIN 40 MG TABLET PO SCH (10:09)
[2022-04-03] MEDS: TRAMADOL HCL 50 MG TABLET PO PRN (10:58)
[2022-04-03 11:30] VITALS: BP 112/73
[2022-04-03 15:20] VITALS: BP 119/69
[2022-04-03 20:00] VITALS: BP 109/64
[2022-04-03] MEDS: MEMANTINE HCL 5 MG TABLET PO SCH (20:55)
[2022-04-03] MEDS: APIXABAN 5 MG TABLET PO SCH (20:59)
[2022-04-04] VITALS: BP 110/65
[2022-04-04 04:00] VITALS: BP 110/65
[2022-04-04 05:48] LABS: HEMATOCRIT 26.1 % (42-54); MEAN CORPUSCULAR HEMOGLOBIN 27.3 pg (27.0-33.0); MEAN CORPUSCULAR HGB CONC 32.2 g/dL (32.0-36.0); MEAN CORPUSCULAR VOLUME 84.7 fL (79-99); RED BLOOD CELL COUNT(AUTO) 3.08 MIL/uL (4.50-6.20); RED CELL DISTRIBUTION WIDTH 15.3 % (11.0-15.5); RETICULOCYTE % (AUTO) 2.03 % (0.42-2.23); WHITE BLOOD COUNT (AUTO) 8.2 K/uL (4.8-10.8)
[2022-04-04 06:22] LABS: ALBUMIN 1.7 g/dL (3.5-5.0); CREATININE 1.4 mg/dL (0.5-1.5); POTASSIUM 4.2 mmol/L (3.5-5.1); THYROID STIMULATING HORMONE 2.38 uIU/mL (0.36-3.74); TOTAL PROTEIN, SERUM 5.1 g/dL (6.0-8.3)
[2022-04-04 08:00] VITALS: BP 110/66
[2022-04-04] MEDS: FUROSEMIDE 20 MG TABLET PO SCH (08:30)
[2022-04-04] MEDS: APIXABAN 5 MG TABLET PO SCH ×2 (08:30→21:29)
[2022-04-04] MEDS: SIMETHICONE 80 MG TAB.CHEW PO SCH ×3 (08:30→21:28)
[2022-04-04] MEDS: ATORVASTATIN 40 MG TABLET PO SCH (08:30)
[2022-04-04] MEDS: CARVEDILOL 6.25 MG TABLET PO SCH ×2 (08:31→21:29)
[2022-04-04] MEDS: KCL 20 MEQ ERTAB PO SCH (08:31)
[2022-04-04] MEDS ORDERED: COMPOUND IV MISC 1 EACH IVSOLN MISC PRN (11:00)
[2022-04-04 12:00] VITALS: BP 107/64
[2022-04-04 12:47] LABS: HEMATOCRIT 26.3 % (42-54)
[2022-04-04 17:30] VITALS: BP 106/66
[2022-04-04 20:00] VITALS: BP 118/63
[2022-04-04] MEDS: MEMANTINE HCL 5 MG TABLET PO SCH (21:29)
[2022-04-04 23:41] LABS: HEMATOCRIT 28.3 % (42-54)
[2022-04-05] VITALS (7 sets, daily range): BP systolic 110–150; BP diastolic 64–78
[2022-04-05 05:36] LABS: BASOPHILS % (AUTO) 0.3 % (0.0-5.0); HEMATOCRIT 27.5 % (42-54); LYMPHOCYTES % (AUTO) 13.8 % (21.0-51.0); MEAN CORPUSCULAR HEMOGLOBIN 27.2 pg (27.0-33.0); MEAN CORPUSCULAR VOLUME 85.1 fL (79-99); MONOCYTES % (AUTO) 12.1 % (3.0-13.0); PLATELET COUNT (AUTO) 98 K/uL (130-400); RED BLOOD CELL COUNT(AUTO) 3.23 MIL/uL (4.50-6.20); RED CELL DISTRIBUTION WIDTH 15.1 % (11.0-15.5); WHITE BLOOD COUNT (AUTO) 7.1 K/uL (4.8-10.8)
[2022-04-05 06:09] LABS: ALBUMIN 1.7 g/dL (3.5-5.0); CREATININE 1.4 mg/dL (0.5-1.5); POTASSIUM 3.9 mmol/L (3.5-5.1); TOTAL PROTEIN, SERUM 5.4 g/dL (6.0-8.3)
[2022-04-05] MEDS: SIMETHICONE 80 MG TAB.CHEW PO SCH ×3 (08:30→20:16)
[2022-04-05] MEDS: ATORVASTATIN 40 MG TABLET PO SCH (08:30)
[2022-04-05] MEDS: KCL 20 MEQ ERTAB PO SCH (08:30)
[2022-04-05] MEDS: APIXABAN 5 MG TABLET PO SCH (08:30)
[2022-04-05] MEDS: FUROSEMIDE 20 MG TABLET PO SCH (08:31)
[2022-04-05] MEDS: IRON SUCROSE COMPLEX 300 MG in 0.9%NACL 50ML 50 ML IV SCH (08:32)
[2022-04-05] MEDS: CARVEDILOL 6.25 MG TABLET PO SCH ×2 (08:37→20:19)
[2022-04-05] MEDS: TRAMADOL HCL 50 MG TABLET PO PRN ×2 (16:09→23:33)
[2022-04-05] MEDS: MEMANTINE HCL 5 MG TABLET PO SCH (20:16)
[2022-04-06 03:40] VITALS: BP 124/70
[2022-04-06 08:04] VITALS: BP 137/66
[2022-04-06] MEDS: IRON SUCROSE COMPLEX 300 MG in 0.9%NACL 50ML 50 ML IV SCH (08:38)
[2022-04-06] MEDS: SIMETHICONE 80 MG TAB.CHEW PO SCH (08:38)
[2022-04-06] MEDS: CARVEDILOL 6.25 MG TABLET PO SCH (08:39)
[2022-04-06] MEDS: FUROSEMIDE 20 MG TABLET PO SCH (08:39)
[2022-04-06] MEDS: KCL 20 MEQ ERTAB PO SCH (08:39)
[2022-04-06] MEDS: ATORVASTATIN 40 MG TABLET PO SCH (08:40)
[2022-04-06] MEDS: TRAMADOL HCL 50 MG TABLET PO PRN (10:20)
[2022-04-06 11:16] VITALS: BP 123/70
== END 2022-04-06 14:56 | disposition home or self-care (01) | DRG 418 ==
LOC: EDSTATUS 09:00 → OBSVTOIN 04-02 06:29 → INTOOBSV 04-02 06:29 → DAHIP 04-02 06:29 → EDSTATUS 04-02 09:00 → 4BH 04-02 11:59
PROVIDERS: ADMIT Student in an Organized Health Care Education/Training Program; ATTEND Student in an Organized Health Care Education/Training Program
PROC: 8E0W4CZ Robotic Assisted Procedure of Trunk Region, Percutaneous Endoscopic Approach (ICD-10-PCS; 2022-04-02)
PROC: 0FT44ZZ Resection of Gallbladder, Percutaneous Endoscopic Approach (ICD-10-PCS; principal; 2022-04-02 08:11)
PROC: 30233N1 Transfusion of Nonautologous Red Blood Cells into Peripheral Vein, Percutaneous Approach (ICD-10-PCS; 2022-04-04)
DX: K80.10 Calculus of gallbladder with chronic cholecystitis without obstruction (principal); R18.8 Other ascites; K74.60 Unspecified cirrhosis of liver; Z20.822 Contact with and (suspected) exposure to COVID-19; I25.10 Atherosclerotic heart disease of native coronary artery without angina pectoris; E78.5 Hyperlipidemia, unspecified; I10 Essential (primary) hypertension; Z79.01 Long term (current) use of anticoagulants; Z95.828 Presence of other vascular implants and grafts; Z95.1 Presence of aortocoronary bypass graft; Z88.0 Allergy status to penicillin; Z86.718 Personal history of other venous thrombosis and embolism; Z82.49 Family history of ischemic heart disease and other diseases of the circulatory system
CPT/HCPCS: 36415; 49083; 80053; 81003; 82042; 82140; 82607; 82728; 82746; 82948; 83036; 83540; 83550; 83880; 84157; 84443; 85014; 85018; 85025; 85027; 85045; 85610; 85730; 86850; 86900; 86901; 86923; 87071; 87076; 87205; 87426; 89051; 93005; 93971; 96365; C1729; G0378; J0330; J1756; J2001; J2270; J2405; J2704; J2710; J3010; J3370; J3490; J7030; J7070; P9016; P9046

== ENCOUNTER → 2022-03-30 | Outpatient (CLI) | payer OTHER ==
[~2022-03-30] MED LIST changes: +ALBUMIN (HUMAN) 25% 200 ML IV SCH; +APIX5TAB PO; +CARV6.25 PO; +LISI1TAB51 PO; +MEMA1TAB2 PO; +MEMA5TAB42 PO
[2022-03-30 10:01] LABS: BASOPHILS % (AUTO) 0.7 % (0.0-5.0); EOSINOPHILS % (AUTO) 3.3 % (0.0-8.0); HEMATOCRIT 31.5 % (42-54); LYMPHOCYTES % (AUTO) 23.9 % (21.0-51.0); MEAN CORPUSCULAR HEMOGLOBIN 27.3 pg (27.0-33.0); MEAN CORPUSCULAR HGB CONC 31.4 g/dL (32.0-36.0); MONOCYTES % (AUTO) 11.9 % (3.0-13.0); NEUTROPHILS % (AUTO) 59.7 % (40.0-77.0); PLATELET COUNT (AUTO) 161 K/uL (130-400); RED BLOOD CELL COUNT(AUTO) 3.62 MIL/uL (4.50-6.20); RED CELL DISTRIBUTION WIDTH 15.2 % (11.0-15.5)
[2022-03-30 10:16] LABS: INR 1.15 (0.85-1.15); PROTHROMBIN TIME 12.4 SEC (9.6-11.6)
[2022-03-30 10:17] LABS: PARTIAL THROMBOPLASTIN TIME 32.5 SEC (26.3-35.5)
[2022-03-30 10:22] LABS: ALBUMIN 2.3 g/dL (3.5-5.0); CREATININE 1.5 mg/dL (0.5-1.5); POTASSIUM 4.9 mmol/L (3.5-5.1); TOTAL PROTEIN, SERUM 6.8 g/dL (6.0-8.3)
[2022-03-30 14:02] LABS: ALBUMIN,BODY FLUID 1.2 g/dL
[2022-03-30 17:30] LABS: APPEARANCE BODY FLUID SLIGHTLY CLOUDY (CLEAR); BODY FLUID WBC 65 /cu. mm.; COLOR,BODY FLUID YELLOW (LT YELLOW); SPECIMENTYPE,BODY FLUID ASCITES; TOTAL VOLUME,BODY FLUID 9000 mL
[2022-03-30 17:31] LABS: BODY FLUID RBC 22 /cu. mm.
[2022-03-30 17:35] LABS: BF LYMPHOCYTE 65 %; BF MESOTHELIAL 6 %
== END | disposition home or self-care (01) ==
LOC: RAH 09:15
PROVIDERS: ATTEND Internal Medicine Gastroenterology
DX: R18.8 Other ascites (principal); K74.69 Other cirrhosis of liver; I10 Essential (primary) hypertension; E11.9 Type 2 diabetes mellitus without complications; M19.90 Unspecified osteoarthritis, unspecified site; E78.9 Disorder of lipoprotein metabolism, unspecified; Z86.16 Personal history of COVID-19; Z79.01 Long term (current) use of anticoagulants; Z79.899 Other long term (current) drug therapy
CPT/HCPCS: 49083; 84157; 80053; 85025; 89051; 85610; 85730; 87071; 87076; 87205; 82042; 36415; P9046; C1729; 96365

== ENCOUNTER → 2022-04-12 | Outpatient (CLI) | payer OTHER ==
[~2022-04-12] MED LIST changes: -LISI1TAB51 PO; -MEMA1TAB2 PO
== END | disposition home or self-care (01) ==
LOC: RAH 09:54
PROVIDERS: ATTEND Internal Medicine Gastroenterology
DX: K74.60 Unspecified cirrhosis of liver (principal)
CPT/HCPCS: 76705; P9046

== ENCOUNTER → 2022-04-26 | Outpatient (CLI) | payer OTHER | END | disposition home or self-care (01) | LOC: RAH 08:44 | PROVIDERS: ATTEND Internal Medicine Gastroenterology | DX: K74.60 Unspecified cirrhosis of liver (principal) | CPT/HCPCS: 76705; P9046 ==

== ENCOUNTER 2022-05-31 05:49 | Emergency (ER) | payer OTHER ==
[~2022-05-31] VITALS: Ht 165.1 cm; Wt 83.9 kg
[~2022-05-31 05:49] MED LIST changes: -ALBUMIN (HUMAN) 25% 200 ML IV SCH
[2022-05-31 07:07] LABS: BASOPHILS % (AUTO) 0.8 % (0.0-5.0); EOSINOPHILS % (AUTO) 2.7 % (0.0-8.0); HEMATOCRIT 30.4 % (42-54); LYMPHOCYTES % (AUTO) 28.2 % (21.0-51.0); MEAN CORPUSCULAR HEMOGLOBIN 27.5 pg (27.0-33.0); MEAN CORPUSCULAR HGB CONC 31.3 g/dL (32.0-36.0); MEAN CORPUSCULAR VOLUME 87.9 fL (79-99); MONOCYTES % (AUTO) 7.2 % (3.0-13.0); NEUTROPHILS % (AUTO) 60.7 % (40.0-77.0); PLATELET COUNT (AUTO) 148 K/uL (130-400); RED BLOOD CELL COUNT(AUTO) 3.46 MIL/uL (4.50-6.20); RED CELL DISTRIBUTION WIDTH 15.7 % (11.0-15.5); WHITE BLOOD COUNT (AUTO) 4.8 K/uL (4.8-10.8)
[2022-05-31 07:22] LABS: ALBUMIN 2.2 g/dL (3.5-5.0); CREATININE 1.4 mg/dL (0.5-1.5); POTASSIUM 4.7 mmol/L (3.5-5.1); TOTAL PROTEIN, SERUM 6.8 g/dL (6.0-8.3)
[2022-05-31 08:11] LABS: APPEARANCE,URINE CLEAR (CLEAR); BILIRUBIN,URINE NEGATIVE (NEGATIVE); COLOR,URINE YELLOW (YELLOW); GLUCOSE, URINE (UA) NEGATIVE (NEGATIVE); KETONES,URINE NEGATIVE (NEGATIVE); LEUKOCYTE ESTERASE ,URINE NEGATIVE Leu/uL (NEGATIVE); NITRATE,URINE NEGATIVE (NEGATIVE); PH,URINE 5.5 (5.0-8.0); PROTEIN,URINE 20 mg/dL (NEGATIVE); UROBILINOGEN,URINE 0.2 mg/dL (0.2-1.0)
[2022-05-31] MEDS ORDERED: LIDOCAINE HCL 1% 20 ML VIAL ONE (08:37)
[2022-05-31 08:39] LABS: SQUAMOUS EPITHELIAL CELL,UR RARE /HPF (0-2)
[2022-05-31] MEDS ORDERED: ALBUMIN (HUMAN) 25% 200 ML IV ONE (08:41)
[2022-05-31 08:59] LABS: INR 1.06 (0.85-1.15); PROTHROMBIN TIME 11.5 SEC (9.6-11.6)
[2022-05-31 09:00] LABS: PARTIAL THROMBOPLASTIN TIME 25.4 SEC (26.3-35.5)
[2022-05-31 10:26] VITALS: BP 106/61
== END 2022-05-31 10:57 | disposition home or self-care (01) ==
LOC: EDH 05:49
DX: K74.60 Unspecified cirrhosis of liver (principal); R18.8 Other ascites; E11.9 Type 2 diabetes mellitus without complications; I10 Essential (primary) hypertension; Z90.49 Acquired absence of other specified parts of digestive tract; Z79.84 Long term (current) use of oral hypoglycemic drugs; Z79.01 Long term (current) use of anticoagulants; Z88.0 Allergy status to penicillin; Z79.899 Other long term (current) drug therapy
CPT/HCPCS: 49083; 99285; 96365; 82550; 84484; 80053; 83690; 85025; 85610; 85730; 81001; 36415; P9046; C1729

== ENCOUNTER → 2022-06-15 | Outpatient (CLI) | payer OTHER ==
[~2022-06-15] MED LIST changes: +ALBUMIN (HUMAN) 25% 200 ML IV SCH; +LIDOCAINE HCL 1% 20 ML VIAL ONE
[2022-06-15 11:18] LABS: BASOPHILS % (AUTO) 0.4 % (0.0-5.0); EOSINOPHILS % (AUTO) 2.7 % (0.0-8.0); HEMATOCRIT 29.7 % (42-54); LYMPHOCYTES % (AUTO) 25.3 % (21.0-51.0); MEAN CORPUSCULAR HEMOGLOBIN 27.9 pg (27.0-33.0); MEAN CORPUSCULAR VOLUME 87.1 fL (79-99); MONOCYTES % (AUTO) 9.6 % (3.0-13.0); NEUTROPHILS % (AUTO) 61.2 % (40.0-77.0); PLATELET COUNT (AUTO) 158 K/uL (130-400); RED BLOOD CELL COUNT(AUTO) 3.41 MIL/uL (4.50-6.20); RED CELL DISTRIBUTION WIDTH 15.4 % (11.0-15.5); WHITE BLOOD COUNT (AUTO) 5.2 K/uL (4.8-10.8)
[2022-06-15 11:22] LABS: INR 1.09 (0.85-1.15); PROTHROMBIN TIME 11.8 SEC (9.6-11.6)
[2022-06-15 11:23] LABS: PARTIAL THROMBOPLASTIN TIME 28.8 SEC (26.3-35.5)
[2022-06-15 11:33] LABS: ALBUMIN 2.3 g/dL (3.5-5.0); CREATININE 1.4 mg/dL (0.5-1.5); POTASSIUM 4.1 mmol/L (3.5-5.1); TOTAL PROTEIN, SERUM 6.9 g/dL (6.0-8.3)
[2022-06-15 12:21] LABS: ALBUMIN,BODY FLUID 1.1 g/dL
[2022-06-15 12:29] LABS: BF LYMPHOCYTE 41 %; BF MESOTHELIAL 45 %; BF MONOCYTE 3 %
[2022-06-15 12:32] LABS: APPEARANCE BODY FLUID CLEAR (CLEAR); COLOR,BODY FLUID YELLOW (LT YELLOW); SPECIMENTYPE,BODY FLUID ASCITES
[2022-06-15 12:33] LABS: BODY FLUID RBC 65 /cu. mm.; BODY FLUID WBC 278 /cu. mm.; TOTAL VOLUME,BODY FLUID 8000 mL
== END | disposition home or self-care (01) ==
LOC: RAH 09:20
PROVIDERS: ATTEND Internal Medicine Gastroenterology
DX: R18.8 Other ascites (principal); K74.69 Other cirrhosis of liver; I10 Essential (primary) hypertension; E11.9 Type 2 diabetes mellitus without complications; M19.90 Unspecified osteoarthritis, unspecified site; E78.9 Disorder of lipoprotein metabolism, unspecified; Z79.01 Long term (current) use of anticoagulants; Z79.899 Other long term (current) drug therapy
CPT/HCPCS: 49083; 84157; 80053; 85025; 89051; 85610; 85730; 87071; 87076; 87205; 82042; 36415; 88108; 88305; P9046; C1729; 96365

== ENCOUNTER → 2022-07-17 | Outpatient (CLI) | payer OTHER ==
[~2022-07-17] MED LIST changes: -LIDOCAINE HCL 1% 20 ML VIAL ONE
[2022-07-17 20:09] LABS: SPECIMENTYPE,BODY FLUID ASCITES
[2022-07-17 20:10] LABS: APPEARANCE BODY FLUID SLIGHTLY CLOUDY (CLEAR); BODY FLUID RBC 2270 /cu. mm.; BODY FLUID WBC 140 /cu. mm.; COLOR,BODY FLUID YELLOW (LT YELLOW); TOTAL VOLUME,BODY FLUID 5200 mL
[2022-07-17 20:22] LABS: BF LYMPHOCYTE 29 %; BF MESOTHELIAL 1 %; BF MONOCYTE 7 %; BF OTHER CELLS 4
== END | disposition home or self-care (01) ==
LOC: RAH 10:13
PROVIDERS: ATTEND Internal Medicine Gastroenterology
DX: R18.8 Other ascites (principal); K74.69 Other cirrhosis of liver; E11.9 Type 2 diabetes mellitus without complications; M19.90 Unspecified osteoarthritis, unspecified site; E78.9 Disorder of lipoprotein metabolism, unspecified; Z79.01 Long term (current) use of anticoagulants; Z79.899 Other long term (current) drug therapy
CPT/HCPCS: 49083; 89051; 87071; 87205; C1729; P9046

== ENCOUNTER → 2022-08-01 | Outpatient (CLI) | payer OTHER ==
[~2022-08-01] MED LIST changes: -ALBUMIN (HUMAN) 25% 200 ML IV SCH; +LIDOCAINE HCL MPF 1% 5ML VIAL ONE
== END | disposition home or self-care (01) ==
LOC: RAH 07:31
PROVIDERS: ATTEND Internal Medicine Gastroenterology
DX: R18.8 Other ascites (principal); K74.69 Other cirrhosis of liver; I10 Essential (primary) hypertension; E11.9 Type 2 diabetes mellitus without complications; E78.9 Disorder of lipoprotein metabolism, unspecified; M19.90 Unspecified osteoarthritis, unspecified site; Z72.89 Other problems related to lifestyle; Z88.0 Allergy status to penicillin; Z79.01 Long term (current) use of anticoagulants
CPT/HCPCS: 49083; 89051; 87071; 87205; J3490; C1729; 96365

== ENCOUNTER → 2022-08-15 | Outpatient (CLI) | payer OTHER ==
[2022-08-01 11:34] LABS: APPEARANCE BODY FLUID CLEAR (CLEAR); COLOR,BODY FLUID YELLOW (LT YELLOW); SPECIMENTYPE,BODY FLUID ASCITES
[2022-08-01 11:37] LABS: TOTAL VOLUME,BODY FLUID 6000 mL
[2022-08-01 11:43] LABS: BODY FLUID RBC 122 /cu. mm.; BODY FLUID WBC 465 /cu. mm.
[2022-08-01 12:20] LABS: BF LYMPHOCYTE 51 %; BF MESOTHELIAL 26 %; BF MONOCYTE 6 %; BF OTHER CELLS 2
[~2022-08-15] MED LIST changes: +ALBUMIN (HUMAN) 25% 200 ML IV SCH; +LIDOCAINE HCL 1% 20 ML VIAL ONE; -LIDOCAINE HCL MPF 1% 5ML VIAL ONE
[2022-08-15 08:38] LABS: BASOPHILS % (AUTO) 0.2 % (0.0-5.0); EOSINOPHILS % (AUTO) 3.6 % (0.0-8.0); HEMATOCRIT 32.1 % (42-54); LYMPHOCYTES % (AUTO) 20.8 % (21.0-51.0); MEAN CORPUSCULAR HEMOGLOBIN 28.4 pg (27.0-33.0); MEAN CORPUSCULAR HGB CONC 32.4 g/dL (32.0-36.0); MEAN CORPUSCULAR VOLUME 87.7 fL (79-99); MONOCYTES % (AUTO) 9.5 % (3.0-13.0); NEUTROPHILS % (AUTO) 65.3 % (40.0-77.0); PLATELET COUNT (AUTO) 125 K/uL (130-400); RED BLOOD CELL COUNT(AUTO) 3.66 MIL/uL (4.50-6.20); RED CELL DISTRIBUTION WIDTH 14.9 % (11.0-15.5); WHITE BLOOD COUNT (AUTO) 4.8 K/uL (4.8-10.8)
[2022-08-15 08:48] LABS: INR 1.09 (0.85-1.15); PROTHROMBIN TIME 11.8 SEC (9.6-11.6)
[2022-08-15 08:49] LABS: PARTIAL THROMBOPLASTIN TIME 28.5 SEC (26.3-35.5)
[2022-08-15 08:50] LABS: ALBUMIN 2.5 g/dL (3.5-5.0); CREATININE 1.4 mg/dL (0.5-1.5); POTASSIUM 3.6 mmol/L (3.5-5.1); TOTAL PROTEIN, SERUM 6.6 g/dL (6.0-8.3)
[2022-08-15 14:42] LABS: BODY FLUID RBC 65 /cu. mm.; BODY FLUID WBC 465 /cu. mm.
[2022-08-15 15:05] LABS: APPEARANCE BODY FLUID CLEAR (CLEAR); SPECIMENTYPE,BODY FLUID ASCITES
[2022-08-15 15:06] LABS: COLOR,BODY FLUID YELLOW (LT YELLOW); TOTAL VOLUME,BODY FLUID 6600 mL
[2022-08-15 15:10] LABS: BF LYMPHOCYTE 44 %; BF OTHER CELLS 2
== END | disposition home or self-care (01) ==
LOC: RAH 07:37
PROVIDERS: ATTEND Internal Medicine Gastroenterology
DX: R18.8 Other ascites (principal); K74.69 Other cirrhosis of liver; E11.9 Type 2 diabetes mellitus without complications; M19.90 Unspecified osteoarthritis, unspecified site; E78.9 Disorder of lipoprotein metabolism, unspecified; Z79.01 Long term (current) use of anticoagulants; Z79.899 Other long term (current) drug therapy
CPT/HCPCS: 49083; 80053; 85025; 89051; 85610; 85730; 87071; 87205; 36415; P9046; C1729

== ENCOUNTER → 2022-08-29 | Outpatient (CLI) | payer OTHER ==
[2022-08-29 11:19] LABS: BODY FLUID RBC 8 /cu. mm.; BODY FLUID WBC 502 /cu. mm.
[2022-08-29 11:29] LABS: APPEARANCE BODY FLUID CLEAR (CLEAR); COLOR,BODY FLUID YELLOW (LT YELLOW); SPECIMENTYPE,BODY FLUID ASCITES; TOTAL VOLUME,BODY FLUID 7700 mL
[2022-08-29 13:07] LABS: BF BASOPHIL 1 %; BF LYMPHOCYTE 4 %; BF MESOTHELIAL 10 %; BF MONOCYTE 2 %
== END | disposition home or self-care (01) ==
LOC: RAH 08:32
PROVIDERS: ATTEND Internal Medicine Gastroenterology
DX: R18.8 Other ascites (principal); K74.69 Other cirrhosis of liver; E11.9 Type 2 diabetes mellitus without complications; M19.90 Unspecified osteoarthritis, unspecified site; I10 Essential (primary) hypertension; E78.9 Disorder of lipoprotein metabolism, unspecified; Z79.899 Other long term (current) drug therapy; Z98.890 Other specified postprocedural states; Z90.49 Acquired absence of other specified parts of digestive tract; Z79.01 Long term (current) use of anticoagulants; Z88.0 Allergy status to penicillin
CPT/HCPCS: 49083; 84157; 89051; 87071; 87076; 87205; 88108; 88305; C1729

== ENCOUNTER → 2022-09-12 | Outpatient (CLI) | payer OTHER ==
[2022-09-12 12:35] LABS: ALBUMIN,BODY FLUID 1.2 g/dL
[2022-09-12 12:56] LABS: BODY FLUID RBC 66 /cu. mm.; BODY FLUID WBC 395 /cu. mm.
[2022-09-12 12:58] LABS: APPEARANCE BODY FLUID SLIGHTLY CLOUDY (CLEAR); COLOR,BODY FLUID YELLOW (LT YELLOW); SPECIMENTYPE,BODY FLUID ASCITES; TOTAL VOLUME,BODY FLUID 7800 mL
[2022-09-12 14:05] LABS: BF LYMPHOCYTE 56 %; BF MONOCYTE 25 %
== END | disposition home or self-care (01) ==
LOC: RAH 07:41
PROVIDERS: ATTEND Internal Medicine Gastroenterology
DX: R18.8 Other ascites (principal); K74.69 Other cirrhosis of liver; I10 Essential (primary) hypertension; E11.9 Type 2 diabetes mellitus without complications; M19.90 Unspecified osteoarthritis, unspecified site; E78.9 Disorder of lipoprotein metabolism, unspecified; Z79.01 Long term (current) use of anticoagulants; Z79.899 Other long term (current) drug therapy; Z98.890 Other specified postprocedural states; Z86.16 Personal history of COVID-19; Z90.49 Acquired absence of other specified parts of digestive tract; Z88.0 Allergy status to penicillin
CPT/HCPCS: 49083; 84157; 89051; 87071; 87076; 87205; 82042; 88108; 88305; P9046; C1729

== ENCOUNTER → 2022-09-26 | Outpatient (CLI) | payer OTHER ==
[~2022-09-26] MED LIST changes: -LIDOCAINE HCL 1% 20 ML VIAL ONE
[2022-09-26 09:08] LABS: BASOPHILS % (AUTO) 0.8 % (0.0-5.0); EOSINOPHILS % (AUTO) 4.2 % (0.0-8.0); HEMATOCRIT 32.2 % (42-54); LYMPHOCYTES % (AUTO) 31.2 % (21.0-51.0); MEAN CORPUSCULAR HEMOGLOBIN 28.4 pg (27.0-33.0); MEAN CORPUSCULAR HGB CONC 31.7 g/dL (32.0-36.0); MEAN CORPUSCULAR VOLUME 89.7 fL (79-99); MONOCYTES % (AUTO) 13.6 % (3.0-13.0); NEUTROPHILS % (AUTO) 49.9 % (40.0-77.0); PLATELET COUNT (AUTO) 129 K/uL (130-400); RED BLOOD CELL COUNT(AUTO) 3.59 MIL/uL (4.50-6.20); RED CELL DISTRIBUTION WIDTH 15.2 % (11.0-15.5); WHITE BLOOD COUNT (AUTO) 3.6 K/uL (4.8-10.8)
[2022-09-26 09:19] LABS: PARTIAL THROMBOPLASTIN TIME 32.3 SEC (26.3-35.5)
[2022-09-26 09:22] LABS: ALBUMIN 2.4 g/dL (3.5-5.0); CREATININE 1.5 mg/dL (0.5-1.5); POTASSIUM 4.1 mmol/L (3.5-5.1); TOTAL PROTEIN, SERUM 6.5 g/dL (6.0-8.3)
[2022-09-26 09:27] LABS: INR 1.04 (0.85-1.15); PROTHROMBIN TIME 11.3 SEC (9.6-11.6)
[2022-09-26 13:12] LABS: ALBUMIN,BODY FLUID 1.2 g/dL
[2022-09-26 13:52] LABS: BODY FLUID RBC 248 /cu. mm.; BODY FLUID WBC 119 /cu. mm.
[2022-09-26 13:53] LABS: APPEARANCE BODY FLUID CLEAR (CLEAR); COLOR,BODY FLUID YELLOW (LT YELLOW); SPECIMENTYPE,BODY FLUID ASCITES; TOTAL VOLUME,BODY FLUID 7300 mL
[2022-09-26 14:34] LABS: BF LYMPHOCYTE 45 %
== END | disposition home or self-care (01) ==
LOC: RAH 07:27
PROVIDERS: ATTEND Internal Medicine Gastroenterology
DX: R18.8 Other ascites (principal); K74.69 Other cirrhosis of liver; E11.9 Type 2 diabetes mellitus without complications; I10 Essential (primary) hypertension; E78.9 Disorder of lipoprotein metabolism, unspecified; M19.90 Unspecified osteoarthritis, unspecified site; Z88.0 Allergy status to penicillin; Z90.49 Acquired absence of other specified parts of digestive tract; Z98.890 Other specified postprocedural states; Z79.01 Long term (current) use of anticoagulants; Z79.899 Other long term (current) drug therapy
CPT/HCPCS: 49083; 84157; 80053; 85025; 89051; 85610; 85730; 87071; 87205; 82042; 36415; 88108; 88305; C1729

== ENCOUNTER → 2022-10-10 | Outpatient (CLI) | payer OTHER ==
[~2022-10-10] MED LIST changes: +LIDOCAINE HCL 1% 20 ML VIAL ONE; +POTA-364 PO; -POTA-79 PO
[2022-10-10 13:46] LABS: ALBUMIN,BODY FLUID 1.2 g/dL
[2022-10-10 13:48] LABS: BODY FLUID RBC 199 /cu. mm.; BODY FLUID WBC 477 /cu. mm.
[2022-10-10 13:49] LABS: APPEARANCE BODY FLUID CLEAR (CLEAR); COLOR,BODY FLUID YELLOW (LT YELLOW); SPECIMENTYPE,BODY FLUID ASCITES; TOTAL VOLUME,BODY FLUID 6500 mL
[2022-10-10 15:36] LABS: BF LYMPHOCYTE 36 %; BF MONOCYTE 1 %; BF OTHER CELLS 1
== END ==
LOC: RAH 07:50
PROVIDERS: ATTEND Internal Medicine Gastroenterology
DX: R18.8 Other ascites (principal); K74.60 Unspecified cirrhosis of liver; E11.9 Type 2 diabetes mellitus without complications; I10 Essential (primary) hypertension; E78.9 Disorder of lipoprotein metabolism, unspecified; Z88.0 Allergy status to penicillin; Z79.01 Long term (current) use of anticoagulants; Z79.899 Other long term (current) drug therapy; Z98.890 Other specified postprocedural states
CPT/HCPCS: 49083; 84157; 89051; 87071; 87076; 87205; 82042; 88108; 88305; P9046; C1729

== ENCOUNTER → 2022-10-24 | Outpatient (CLI) | payer OTHER ==
[2022-10-24 10:20] LABS: APPEARANCE BODY FLUID CLEAR (CLEAR); COLOR,BODY FLUID YELLOW (LT YELLOW); SPECIMENTYPE,BODY FLUID ASCITES; TOTAL VOLUME,BODY FLUID 6800 mL
[2022-10-24 10:35] LABS: ALBUMIN,BODY FLUID 1.2 g/dL
[2022-10-24 10:39] LABS: BODY FLUID RBC 758 /cu. mm.; BODY FLUID WBC 686 /cu. mm.
[2022-10-24 10:53] LABS: BF LYMPHOCYTE 52 %; BF MESOTHELIAL 36 %; BF MONOCYTE 8 %
== END | disposition home or self-care (01) ==
LOC: RAH 07:30
PROVIDERS: ATTEND Internal Medicine Gastroenterology
DX: R18.8 Other ascites (principal); K74.69 Other cirrhosis of liver; I10 Essential (primary) hypertension; E11.9 Type 2 diabetes mellitus without complications; E78.9 Disorder of lipoprotein metabolism, unspecified; M19.90 Unspecified osteoarthritis, unspecified site; Z88.0 Allergy status to penicillin; Z79.899 Other long term (current) drug therapy; Z79.01 Long term (current) use of anticoagulants; Z90.49 Acquired absence of other specified parts of digestive tract; Z98.890 Other specified postprocedural states
CPT/HCPCS: 49083; 84157; 89051; 87071; 87205; 82042; P9046; C1729; 96365

== ENCOUNTER → 2022-11-06 | Outpatient (CLI) | payer OTHER ==
[2022-11-06 09:40] LABS: BASOPHILS % (AUTO) 0.6 % (0.0-5.0); EOSINOPHILS % (AUTO) 2.6 % (0.0-8.0); HEMATOCRIT 29.6 % (42-54); LYMPHOCYTES % (AUTO) 16.3 % (21.0-51.0); MEAN CORPUSCULAR HEMOGLOBIN 28.9 pg (27.0-33.0); MEAN CORPUSCULAR HGB CONC 32.1 g/dL (32.0-36.0); MONOCYTES % (AUTO) 11.9 % (3.0-13.0); PLATELET COUNT (AUTO) 214 K/uL (130-400); RED BLOOD CELL COUNT(AUTO) 3.29 MIL/uL (4.50-6.20); RED CELL DISTRIBUTION WIDTH 16.1 % (11.0-15.5); WHITE BLOOD COUNT (AUTO) 6.6 K/uL (4.8-10.8)
[2022-11-06 09:47] LABS: INR 1.13 (0.85-1.15); PROTHROMBIN TIME 12.2 SEC (9.6-11.6)
[2022-11-06 09:49] LABS: PARTIAL THROMBOPLASTIN TIME 34.5 SEC (26.3-35.5)
[2022-11-06 10:16] LABS: ALBUMIN 2.4 g/dL (3.5-5.0); CREATININE 1.5 mg/dL (0.5-1.5); POTASSIUM 4.2 mmol/L (3.5-5.1); TOTAL PROTEIN, SERUM 5.8 g/dL (6.0-8.3)
[2022-11-06 18:35] LABS: BODY FLUID RBC 266 /cu. mm.; BODY FLUID WBC 307 /cu. mm.
[2022-11-06 18:51] LABS: APPEARANCE BODY FLUID SLIGHTLY CLOUDY (CLEAR); COLOR,BODY FLUID YELLOW (LT YELLOW); SPECIMENTYPE,BODY FLUID ASCITES; TOTAL VOLUME,BODY FLUID 4600 mL
[2022-11-06 18:54] LABS: BF LYMPHOCYTE 61 %; BF MONOCYTE 4 %
== END | disposition home or self-care (01) ==
LOC: RAH 07:27
PROVIDERS: ATTEND Internal Medicine
DX: R18.8 Other ascites (principal); K74.69 Other cirrhosis of liver; I10 Essential (primary) hypertension; E11.9 Type 2 diabetes mellitus without complications; M19.90 Unspecified osteoarthritis, unspecified site; E78.9 Disorder of lipoprotein metabolism, unspecified; Z88.0 Allergy status to penicillin; Z90.49 Acquired absence of other specified parts of digestive tract; Z98.890 Other specified postprocedural states; Z79.01 Long term (current) use of anticoagulants; Z79.899 Other long term (current) drug therapy
CPT/HCPCS: 49083; 80053; 85025; 89051; 85610; 85730; 87071; 87205; 36415; P9046; C1729

== ENCOUNTER → 2022-11-16 | Outpatient (CLI) | payer OTHER ==
[~2022-11-16] MED LIST changes: -ALBUMIN (HUMAN) 25% 200 ML IV SCH; -LIDOCAINE HCL 1% 20 ML VIAL ONE
== END | disposition home or self-care (01) ==
LOC: LAB 09:29
PROVIDERS: ATTEND Internal Medicine Cardiovascular Disease
DX: I73.9 Peripheral vascular disease, unspecified (principal)
CPT/HCPCS: 36415; 82550

== ENCOUNTER → 2022-11-21 | Outpatient (CLI) | payer OTHER ==
[~2022-11-21] MED LIST changes: +ALBUMIN (HUMAN) 25% 200 ML IV SCH
== END | disposition home or self-care (01) ==
LOC: RAH 07:50
PROVIDERS: ATTEND Internal Medicine
DX: R18.8 Other ascites (principal)
CPT/HCPCS: 76705

== ENCOUNTER → 2022-12-05 | Outpatient (CLI) | payer OTHER ==
[2022-12-05 14:27] LABS: BODY FLUID RBC 193 /cu. mm.; BODY FLUID WBC 497 /cu. mm.; SPECIMENTYPE,BODY FLUID ASCITES; TOTAL VOLUME,BODY FLUID 4200 mL
[2022-12-05 14:28] LABS: APPEARANCE BODY FLUID CLEAR (CLEAR); COLOR,BODY FLUID YELLOW (LT YELLOW)
[2022-12-05 16:30] LABS: BF LYMPHOCYTE 52 %; BF MONOCYTE 4 %
== END ==
LOC: RAH 07:51
PROVIDERS: ATTEND Internal Medicine
DX: R18.8 Other ascites (principal); Z88.0 Allergy status to penicillin; Z79.01 Long term (current) use of anticoagulants; Z79.899 Other long term (current) drug therapy
CPT/HCPCS: 49083; 89051; 87071; 87205; P9046; C1729

== ENCOUNTER → 2023-01-02 | Outpatient (CLI) | payer OTHER ==
[~2023-01-02] MED LIST changes: +LIDOCAINE HCL 1% 20 ML VIAL ONE
[2023-01-02 12:32] LABS: ALBUMIN,BODY FLUID 1.6 g/dL; APPEARANCE BODY FLUID CLEAR (CLEAR); COLOR,BODY FLUID YELLOW (LT YELLOW); SPECIMENTYPE,BODY FLUID ASCITES; TOTAL PROTEIN,BODY FLUID 3.5 g/dL
[2023-01-02 12:33] LABS: TOTAL VOLUME,BODY FLUID 4300 mL
[2023-01-02 12:38] LABS: BODY FLUID RBC 113 /cu. mm.; BODY FLUID WBC 524 /cu. mm.
[2023-01-02 13:32] LABS: BF LYMPHOCYTE 34 %; BF MESOTHELIAL 41 %; BF MONOCYTE 17 %; BF TOTAL CELLS COUNTED 100
== END | disposition home or self-care (01) ==
LOC: RAH 08:58
PROVIDERS: ATTEND Internal Medicine Gastroenterology
DX: R18.8 Other ascites (principal); K74.69 Other cirrhosis of liver; I10 Essential (primary) hypertension; E11.9 Type 2 diabetes mellitus without complications; E78.9 Disorder of lipoprotein metabolism, unspecified; M19.90 Unspecified osteoarthritis, unspecified site; Z79.899 Other long term (current) drug therapy; Z88.8 Allergy status to other drugs, medicaments and biological substances; Z88.0 Allergy status to penicillin; Z90.49 Acquired absence of other specified parts of digestive tract; Z98.890 Other specified postprocedural states; Z79.01 Long term (current) use of anticoagulants
CPT/HCPCS: 49083; 84157; 89051; 87071; 87076; 87205; 82042; 88108; 88305; P9046; C1729; 96365

== ENCOUNTER → 2023-01-16 | Outpatient (CLI) | payer OTHER ==
[~2023-01-16] MED LIST changes: -LIDOCAINE HCL 1% 20 ML VIAL ONE
[2023-01-16 08:46] LABS: BASOPHILS # (AUTO) 0.02 K/uL (0.00-0.20); BASOPHILS % (AUTO) 0.4 % (0.0-5.0); EOSINOPHILS # (AUTO) 0.18 K/uL (0.00-0.70); EOSINOPHILS % (AUTO) 3.8 % (0.0-8.0); HEMATOCRIT 29.6 % (42-54); IMMATURE GRANULOCYTE ABSOLUTE 0.02 K/uL (0-1); LYMPHOCYTES # (AUTO) 1.2 K/uL (1.0-4.8); LYMPHOCYTES % (AUTO) 26.3 % (21.0-51.0); MEAN CORPUSCULAR HGB CONC 33.1 g/dL (32.0-36.0); MEAN CORPUSCULAR VOLUME 87.6 fL (79-99); MONOCYTES # (AUTO) 0.5 K/uL (0.1-1.0); MONOCYTES % (AUTO) 11.4 % (3.0-13.0); NEUTROPHILS # (AUTO) 2.7 K/uL (1.8-7.7); NEUTROPHILS % (AUTO) 57.7 % (40.0-77.0); PLATELET COUNT (AUTO) 126 K/uL (130-400); RED BLOOD CELL COUNT(AUTO) 3.38 MIL/uL (4.50-6.20); RED CELL DISTRIBUTION WIDTH 14.5 % (11.0-15.5); WHITE BLOOD COUNT (AUTO) 4.7 K/uL (4.8-10.8)
[2023-01-16 08:54] LABS: INR 1.13 (0.85-1.15)
[2023-01-16 08:55] LABS: PARTIAL THROMBOPLASTIN TIME 32.9 SEC (26.3-35.5)
[2023-01-16 09:18] LABS: ALBUMIN 2.9 g/dL (3.5-5.0); BILIRUBIN,TOTAL 1.2 mg/dL (0.2-1.0); CREATININE 1.9 mg/dL (0.5-1.5); POTASSIUM 3.7 mmol/L (3.5-5.1)
[2023-01-16 13:26] LABS: ALBUMIN,BODY FLUID 1.7 g/dL; TOTAL PROTEIN,BODY FLUID 3.5 g/dL
[2023-01-16 14:11] LABS: APPEARANCE BODY FLUID SLIGHTLY CLOUDY (CLEAR); COLOR,BODY FLUID YELLOW (LT YELLOW); SPECIMENTYPE,BODY FLUID ASCITES; TOTAL VOLUME,BODY FLUID 3800 mL
[2023-01-16 14:39] LABS: BODY FLUID RBC 320 /cu. mm.; BODY FLUID WBC 380 /cu. mm.
[2023-01-16 15:57] LABS: BF LYMPHOCYTE 40 %; BF MACROPHAGE 43; BF TOTAL CELLS COUNTED 100
== END | disposition home or self-care (01) ==
LOC: RAH 07:41
PROVIDERS: ATTEND Internal Medicine Gastroenterology
DX: R18.8 Other ascites (principal); K74.69 Other cirrhosis of liver; I10 Essential (primary) hypertension; E11.9 Type 2 diabetes mellitus without complications; E78.9 Disorder of lipoprotein metabolism, unspecified; M19.90 Unspecified osteoarthritis, unspecified site; Z88.0 Allergy status to penicillin; Z88.8 Allergy status to other drugs, medicaments and biological substances; Z90.49 Acquired absence of other specified parts of digestive tract; Z98.890 Other specified postprocedural states; Z79.01 Long term (current) use of anticoagulants; Z79.899 Other long term (current) drug therapy
CPT/HCPCS: 49083; 84157; 80053; 85025; 89051; 85610; 85730; 87071; 87076; 87205; 82042; 36415; 88108; C1729; 96365

== ENCOUNTER → 2023-01-30 | Outpatient (CLI) | payer OTHER ==
[2023-01-30 13:50] LABS: BODY FLUID RBC 560 /cu. mm.; BODY FLUID WBC 749 /cu. mm.
[2023-01-30 13:59] LABS: ALBUMIN,BODY FLUID 1.9 g/dL
[2023-01-30 14:27] LABS: APPEARANCE BODY FLUID CLEAR (CLEAR); COLOR,BODY FLUID YELLOW (LT YELLOW); SPECIMENTYPE,BODY FLUID ASCITES; TOTAL VOLUME,BODY FLUID 3200 mL
[2023-01-30 14:36] LABS: BF BASOPHIL 1 %; BF LYMPHOCYTE 43 %; BF MESOTHELIAL 37 %; BF MONOCYTE 16 %; BF TOTAL CELLS COUNTED 100
== END | disposition home or self-care (01) ==
LOC: RAH 08:06
PROVIDERS: ATTEND Internal Medicine Gastroenterology
DX: R18.8 Other ascites (principal); K74.69 Other cirrhosis of liver; I10 Essential (primary) hypertension; E11.9 Type 2 diabetes mellitus without complications; E78.9 Disorder of lipoprotein metabolism, unspecified; M19.90 Unspecified osteoarthritis, unspecified site; K81.9 Cholecystitis, unspecified; I85.00 Esophageal varices without bleeding; Z88.8 Allergy status to other drugs, medicaments and biological substances; Z88.0 Allergy status to penicillin; Z90.49 Acquired absence of other specified parts of digestive tract; Z79.01 Long term (current) use of anticoagulants; Z86.16 Personal history of COVID-19; Z87.891 Personal history of nicotine dependence; Z79.899 Other long term (current) drug therapy; Z98.890 Other specified postprocedural states
CPT/HCPCS: 49083; 84157; 89051; 87071; 87205; 82042; 86038; 36415; 88108; P9046; C1729; 96365

== ENCOUNTER → 2023-03-20 | Outpatient (CLI) | payer OTHER ==
[2023-03-20 12:28] LABS: APPEARANCE BODY FLUID CLEAR (CLEAR); BODY FLUID RBC 121 /cu. mm.; BODY FLUID WBC 442 /cu. mm.; COLOR,BODY FLUID YELLOW (LT YELLOW); SPECIMENTYPE,BODY FLUID ASCITES
[2023-03-20 12:29] LABS: TOTAL VOLUME,BODY FLUID 6800 mL
[2023-03-20 12:31] LABS: ALBUMIN,BODY FLUID 1.6 g/dL; TOTAL PROTEIN,BODY FLUID 3.5 g/dL
[2023-03-20 13:03] LABS: BF LYMPHOCYTE 41 %; BF MESOTHELIAL 42 %; BF MONOCYTE 6 %; BF TOTAL CELLS COUNTED 100
== END | disposition home or self-care (01) ==
LOC: RAH 07:39
PROVIDERS: ATTEND Internal Medicine Gastroenterology
DX: R18.8 Other ascites (principal); K74.69 Other cirrhosis of liver; I10 Essential (primary) hypertension; E78.5 Hyperlipidemia, unspecified; E11.9 Type 2 diabetes mellitus without complications; M19.90 Unspecified osteoarthritis, unspecified site; Z88.0 Allergy status to penicillin; Z88.8 Allergy status to other drugs, medicaments and biological substances; Z90.49 Acquired absence of other specified parts of digestive tract; Z98.890 Other specified postprocedural states; Z79.01 Long term (current) use of anticoagulants; Z79.899 Other long term (current) drug therapy
CPT/HCPCS: 49083; 84157; 89051; 87071; 87076; 87205; 82042; 88305; 88112; P9046; C1729; 96365

== ENCOUNTER → 2023-04-10 | Outpatient (CLI) | payer OTHER ==
[2023-04-10 09:27] LABS: BASOPHILS # (AUTO) 0.02 K/uL (0.00-0.20); BASOPHILS % (AUTO) 0.4 % (0.0-5.0); EOSINOPHILS # (AUTO) 0.18 K/uL (0.00-0.70); EOSINOPHILS % (AUTO) 3.9 % (0.0-8.0); HEMATOCRIT 29.6 % (42-54); IMMATURE GRANULOCYTE ABSOLUTE 0.04 K/uL (0-1); LYMPHOCYTES # (AUTO) 0.9 K/uL (1.0-4.8); LYMPHOCYTES % (AUTO) 18.6 % (21.0-51.0); MEAN CORPUSCULAR HEMOGLOBIN 29.8 pg (27.0-33.0); MEAN CORPUSCULAR HGB CONC 32.8 g/dL (32.0-36.0); MEAN CORPUSCULAR VOLUME 91.1 fL (79-99); MONOCYTES # (AUTO) 0.6 K/uL (0.1-1.0); MONOCYTES % (AUTO) 13.1 % (3.0-13.0); NEUTROPHILS % (AUTO) 63.1 % (40.0-77.0); PLATELET COUNT (AUTO) 115 K/uL (130-400); RED BLOOD CELL COUNT(AUTO) 3.25 MIL/uL (4.50-6.20); RED CELL DISTRIBUTION WIDTH 14.5 % (11.0-15.5); WHITE BLOOD COUNT (AUTO) 4.7 K/uL (4.8-10.8)
[2023-04-10 09:37] LABS: INR 1.12 (0.85-1.15); PROTHROMBIN TIME 12.9 SEC (9.6-11.6)
[2023-04-10 09:38] LABS: PARTIAL THROMBOPLASTIN TIME 30.8 SEC (26.3-35.5)
[2023-04-10 09:39] LABS: ALBUMIN 2.7 g/dL (3.5-5.0); POTASSIUM 3.2 mmol/L (3.5-5.1)
[2023-04-10 15:32] LABS: ALBUMIN,BODY FLUID 1.5 g/dL; TOTAL PROTEIN,BODY FLUID 3.5 g/dL
[2023-04-10 15:34] LABS: BODY FLUID RBC 603 /cu. mm.; BODY FLUID WBC 493 /cu. mm.
[2023-04-10 16:06] LABS: APPEARANCE BODY FLUID SLIGHTLY CLOUDY (CLEAR); COLOR,BODY FLUID YELLOW (LT YELLOW); SPECIMENTYPE,BODY FLUID ASCITES; TOTAL VOLUME,BODY FLUID 7800 mL
[2023-04-10 16:43] LABS: BF LYMPHOCYTE 26 %; BF MACROPHAGE 18; BF MESOTHELIAL 1 %; BF OTHER CELLS 7; BF TOTAL CELLS COUNTED 100
== END | disposition home or self-care (01) ==
LOC: RAH 08:02
PROVIDERS: ATTEND Internal Medicine
DX: R18.8 Other ascites (principal); K74.69 Other cirrhosis of liver; I85.10 Secondary esophageal varices without bleeding; K76.82 Hepatic encephalopathy; I10 Essential (primary) hypertension; E11.9 Type 2 diabetes mellitus without complications; M19.90 Unspecified osteoarthritis, unspecified site; K81.9 Cholecystitis, unspecified; E78.9 Disorder of lipoprotein metabolism, unspecified; Z79.01 Long term (current) use of anticoagulants; Z79.899 Other long term (current) drug therapy; Z86.16 Personal history of COVID-19; Z90.49 Acquired absence of other specified parts of digestive tract; Z88.0 Allergy status to penicillin
CPT/HCPCS: 49083; 84157; 80053; 85025; 89051; 85610; 85730; 87071; 87205; 82042; 36415; 88305; 88112; P9046; C1729; 96365

== ENCOUNTER → 2023-04-26 | Outpatient (CLI) | payer OTHER ==
[2023-04-26 16:28] LABS: ALBUMIN,BODY FLUID 1.3 g/dL; TOTAL PROTEIN,BODY FLUID 3.1 g/dL
[2023-04-26 16:56] LABS: BODY FLUID RBC 208 /cu. mm.; BODY FLUID WBC 438 /cu. mm.
[2023-04-26 17:37] LABS: BF LYMPHOCYTE 24 %; BF MACROPHAGE 21; BF MESOTHELIAL 35 %; BF TOTAL CELLS COUNTED 100
[2023-04-26 21:47] LABS: APPEARANCE BODY FLUID SLIGHTLY CLOUDY (CLEAR); COLOR,BODY FLUID YELLOW (LT YELLOW); SPECIMENTYPE,BODY FLUID ASCITES
[2023-04-26 21:48] LABS: TOTAL VOLUME,BODY FLUID 7700 mL
== END | disposition home or self-care (01) ==
LOC: RAH 09:22
PROVIDERS: ATTEND Internal Medicine
DX: R18.8 Other ascites (principal); K74.69 Other cirrhosis of liver; I10 Essential (primary) hypertension; E11.9 Type 2 diabetes mellitus without complications; M19.90 Unspecified osteoarthritis, unspecified site; Z90.49 Acquired absence of other specified parts of digestive tract; Z88.0 Allergy status to penicillin; Z88.8 Allergy status to other drugs, medicaments and biological substances; Z87.891 Personal history of nicotine dependence; Z79.899 Other long term (current) drug therapy; Z79.01 Long term (current) use of anticoagulants
CPT/HCPCS: 49083; 84157; 89051; 87071; 87205; 82042; 88305; 88112; P9046; C1729; 96365

== ENCOUNTER → 2023-05-22 | Outpatient (CLI) | payer OTHER ==
[2023-05-22 09:21] LABS: BASOPHILS # (AUTO) 0.03 K/uL (0.00-0.20); BASOPHILS % (AUTO) 0.6 % (0.0-5.0); EOSINOPHILS # (AUTO) 0.12 K/uL (0.00-0.70); EOSINOPHILS % (AUTO) 2.6 % (0.0-8.0); HEMATOCRIT 29.6 % (42-54); IMMATURE GRANULOCYTE ABSOLUTE 0.02 K/uL (0-1); LYMPHOCYTES # (AUTO) 0.8 K/uL (1.0-4.8); LYMPHOCYTES % (AUTO) 17.6 % (21.0-51.0); MEAN CORPUSCULAR HEMOGLOBIN 30.4 pg (27.0-33.0); MEAN CORPUSCULAR HGB CONC 33.8 g/dL (32.0-36.0); MONOCYTES # (AUTO) 0.7 K/uL (0.1-1.0); MONOCYTES % (AUTO) 14.4 % (3.0-13.0); NEUTROPHILS % (AUTO) 64.4 % (40.0-77.0); PLATELET COUNT (AUTO) 113 K/uL (130-400); RED BLOOD CELL COUNT(AUTO) 3.29 MIL/uL (4.50-6.20); RED CELL DISTRIBUTION WIDTH 13.9 % (11.0-15.5); WHITE BLOOD COUNT (AUTO) 4.7 K/uL (4.8-10.8)
[2023-05-22 09:37] LABS: INR 1.04 (0.85-1.15)
[2023-05-22 09:38] LABS: PARTIAL THROMBOPLASTIN TIME 28.1 SEC (26.3-35.5)
[2023-05-22 09:49] LABS: ALBUMIN 2.5 g/dL (3.5-5.0); BILIRUBIN,TOTAL 1.4 mg/dL (0.2-1.0); CREATININE 2.5 mg/dL (0.5-1.5); POTASSIUM 3.4 mmol/L (3.5-5.1); TOTAL PROTEIN, SERUM 6.9 g/dL (6.0-8.3)
[2023-05-22 12:33] LABS: ALBUMIN,BODY FLUID 1.3 g/dL; TOTAL PROTEIN,BODY FLUID 3.4 g/dL
[2023-05-22 13:17] LABS: APPEARANCE BODY FLUID SLIGHTLY CLOUDY (CLEAR); COLOR,BODY FLUID LT YELLOW (LT YELLOW); SPECIMENTYPE,BODY FLUID ASCITES; TOTAL VOLUME,BODY FLUID 9000 mL
[2023-05-22 13:23] LABS: BODY FLUID RBC 203 /cu. mm.; BODY FLUID WBC 1636 /cu. mm.
[2023-05-22 15:37] LABS: BF LYMPHOCYTE 5 %; BF MACROPHAGE 70; BF TOTAL CELLS COUNTED 100
== END | disposition home or self-care (01) ==
LOC: RAH 08:05
PROVIDERS: ATTEND Internal Medicine
DX: R18.8 Other ascites (principal); K74.69 Other cirrhosis of liver; I10 Essential (primary) hypertension; E11.9 Type 2 diabetes mellitus without complications; M19.90 Unspecified osteoarthritis, unspecified site; Z90.49 Acquired absence of other specified parts of digestive tract; Z88.0 Allergy status to penicillin; Z88.8 Allergy status to other drugs, medicaments and biological substances; Z87.891 Personal history of nicotine dependence; Z79.01 Long term (current) use of anticoagulants; Z79.899 Other long term (current) drug therapy
CPT/HCPCS: 49083; 84157; 80053; 85025; 89051; 85610; 85730; 87071; 87076; 87205; 82042; 36415; 88305; 88112; C1729; 96365

== ENCOUNTER → 2023-06-07 | Outpatient (CLI) | payer OTHER ==
[2023-06-07 12:30] LABS: ALBUMIN,BODY FLUID 1.3 g/dL; TOTAL PROTEIN,BODY FLUID 3.4 g/dL
[2023-06-07 12:53] LABS: APPEARANCE BODY FLUID CLEAR (CLEAR); COLOR,BODY FLUID YELLOW (LT YELLOW); SPECIMENTYPE,BODY FLUID ASCITES; TOTAL VOLUME,BODY FLUID 5000 mL
[2023-06-07 12:56] LABS: BODY FLUID RBC 152 /cu. mm.; BODY FLUID WBC 417 /cu. mm.
[2023-06-07 13:14] LABS: BF LYMPHOCYTE 35 %; BF MACROPHAGE 28; BF MESOTHELIAL 2 %; BF MONOCYTE 4 %; BF TOTAL CELLS COUNTED 100
== END | disposition home or self-care (01) ==
LOC: RAH 07:39
PROVIDERS: ATTEND Internal Medicine
DX: R18.8 Other ascites (principal); K74.69 Other cirrhosis of liver; I10 Essential (primary) hypertension; E11.9 Type 2 diabetes mellitus without complications; M19.90 Unspecified osteoarthritis, unspecified site; Z90.49 Acquired absence of other specified parts of digestive tract; Z98.890 Other specified postprocedural states; Z87.891 Personal history of nicotine dependence; Z79.899 Other long term (current) drug therapy; Z79.01 Long term (current) use of anticoagulants; Z88.8 Allergy status to other drugs, medicaments and biological substances; Z88.0 Allergy status to penicillin
CPT/HCPCS: 49083; 84157; 89051; 87071; 87205; 82042; 88305; 88112; P9046; C1729; 96365

== ENCOUNTER → 2023-06-21 | Outpatient (CLI) | payer OTHER ==
[2023-06-21 14:07] LABS: ALBUMIN,BODY FLUID 1.4 g/dL; TOTAL PROTEIN,BODY FLUID 3.3 g/dL
[2023-06-21 15:25] LABS: BODY FLUID WBC 420 /cu. mm.
[2023-06-21 15:28] LABS: BODY FLUID RBC 1220 /cu. mm.
[2023-06-21 16:45] LABS: BF LYMPHOCYTE 29 %; BF MACROPHAGE 27; BF MESOTHELIAL 22 %; BF TOTAL CELLS COUNTED 100
[2023-06-21 16:50] LABS: APPEARANCE BODY FLUID SLIGHTLY CLOUDY (CLEAR); SPECIMENTYPE,BODY FLUID ASCITES
[2023-06-21 16:51] LABS: COLOR,BODY FLUID YELLOW (LT YELLOW)
[2023-06-21 16:52] LABS: TOTAL VOLUME,BODY FLUID 6000 mL
== END | disposition home or self-care (01) ==
LOC: RAH 08:57
PROVIDERS: ATTEND Internal Medicine
DX: R18.8 Other ascites (principal); K74.69 Other cirrhosis of liver; I85.10 Secondary esophageal varices without bleeding; M19.90 Unspecified osteoarthritis, unspecified site; K21.00 Gastro-esophageal reflux disease with esophagitis, without bleeding; E78.9 Disorder of lipoprotein metabolism, unspecified; K81.9 Cholecystitis, unspecified; K76.82 Hepatic encephalopathy; E11.22 Type 2 diabetes mellitus with diabetic chronic kidney disease; I12.9 Hypertensive chronic kidney disease with stage 1 through stage 4 chronic kidney disease, or unspecified chronic kidney disease; N18.9 Chronic kidney disease, unspecified; K65.2 Spontaneous bacterial peritonitis; Z86.16 Personal history of COVID-19; Z90.49 Acquired absence of other specified parts of digestive tract; Z88.0 Allergy status to penicillin; Z79.899 Other long term (current) drug therapy; Z79.01 Long term (current) use of anticoagulants
CPT/HCPCS: 49083; 84157; 89051; 87071; 87076; 87205; 82042; 88305; 88112; P9046; C1729; 96365

== ENCOUNTER → 2023-07-03 | Outpatient (CLI) | payer OTHER ==
[2023-07-03 09:23] LABS: BASOPHILS # (AUTO) 0.03 K/uL (0.00-0.20); BASOPHILS % (AUTO) 0.6 % (0.0-5.0); EOSINOPHILS % (AUTO) 2.2 % (0.0-8.0); HEMATOCRIT 28.5 % (42-54); IMMATURE GRANULOCYTE ABSOLUTE 0.05 K/uL (0-1); LYMPHOCYTES % (AUTO) 21.1 % (21.0-51.0); MEAN CORPUSCULAR HEMOGLOBIN 28.7 pg (27.0-33.0); MEAN CORPUSCULAR HGB CONC 32.6 g/dL (32.0-36.0); MONOCYTES # (AUTO) 0.5 K/uL (0.1-1.0); MONOCYTES % (AUTO) 11.4 % (3.0-13.0); NEUTROPHILS % (AUTO) 63.6 % (40.0-77.0); PLATELET COUNT (AUTO) 128 K/uL (130-400); RED BLOOD CELL COUNT(AUTO) 3.24 MIL/uL (4.50-6.20); RED CELL DISTRIBUTION WIDTH 14.6 % (11.0-15.5); WHITE BLOOD COUNT (AUTO) 4.6 K/uL (4.8-10.8)
[2023-07-03 09:36] LABS: INR 1.02 (0.85-1.15); PROTHROMBIN TIME 11.8 SEC (9.6-11.6)
[2023-07-03 09:37] LABS: PARTIAL THROMBOPLASTIN TIME 29.6 SEC (26.3-35.5)
[2023-07-03 09:41] LABS: ALBUMIN 2.6 g/dL (3.5-5.0); BILIRUBIN,TOTAL 0.9 mg/dL (0.2-1.0); CREATININE 2.2 mg/dL (0.5-1.5); POTASSIUM 3.1 mmol/L (3.5-5.1); TOTAL PROTEIN, SERUM 6.4 g/dL (6.0-8.3)
[2023-07-03 13:36] LABS: ALBUMIN,BODY FLUID 1.3 g/dL; TOTAL PROTEIN,BODY FLUID 2.9 g/dL
[2023-07-03 13:55] LABS: BODY FLUID RBC 20 /cu. mm.; BODY FLUID WBC 380 /cu. mm.
[2023-07-03 14:20] LABS: BF LYMPHOCYTE 35 %; BF MESOTHELIAL 39 %; BF MONOCYTE 12 %; BF TOTAL CELLS COUNTED 100
[2023-07-03 14:28] LABS: APPEARANCE BODY FLUID CLEAR (CLEAR); COLOR,BODY FLUID YELLOW (LT YELLOW); SPECIMENTYPE,BODY FLUID ASCITES; TOTAL VOLUME,BODY FLUID 4000 mL
== END | disposition home or self-care (01) ==
LOC: RAH 07:38
PROVIDERS: ATTEND Internal Medicine
DX: R18.8 Other ascites (principal); K74.69 Other cirrhosis of liver; I85.10 Secondary esophageal varices without bleeding; M19.90 Unspecified osteoarthritis, unspecified site; K21.00 Gastro-esophageal reflux disease with esophagitis, without bleeding; E78.9 Disorder of lipoprotein metabolism, unspecified; K81.9 Cholecystitis, unspecified; K76.82 Hepatic encephalopathy; E11.22 Type 2 diabetes mellitus with diabetic chronic kidney disease; I12.9 Hypertensive chronic kidney disease with stage 1 through stage 4 chronic kidney disease, or unspecified chronic kidney disease; N18.9 Chronic kidney disease, unspecified; K65.2 Spontaneous bacterial peritonitis; Z86.16 Personal history of COVID-19; Z90.49 Acquired absence of other specified parts of digestive tract; Z88.0 Allergy status to penicillin; Z79.899 Other long term (current) drug therapy; Z79.01 Long term (current) use of anticoagulants; Z98.890 Other specified postprocedural states
CPT/HCPCS: 49083; 84157; 80053; 85025; 89051; 85610; 85730; 87071; 87076; 87205; 82042; 36415; 88305; 88112; C1729; 96365

== ENCOUNTER → 2023-07-17 | Outpatient (CLI) | payer OTHER ==
[~2023-07-17] MED LIST changes: -ALBUMIN (HUMAN) 25% 200 ML IV SCH
[2023-07-17] MEDS: ALBUMIN (HUMAN) 25% 200 ML IV SCH (11:36)
[2023-07-17 12:46] LABS: APPEARANCE BODY FLUID CLEAR (CLEAR); COLOR,BODY FLUID YELLOW (LT YELLOW); SPECIMENTYPE,BODY FLUID ASCITES; TOTAL VOLUME,BODY FLUID 9500 mL
[2023-07-17 12:48] LABS: BODY FLUID RBC 0 /cu. mm.; BODY FLUID WBC 293 /cu. mm.
[2023-07-17 12:52] LABS: ALBUMIN,BODY FLUID 1.3 g/dL; TOTAL PROTEIN,BODY FLUID 2.9 g/dL
[2023-07-17 13:56] LABS: BF EOSINOPHIL 1 %; BF LYMPHOCYTE 25 %; BF MACROPHAGE 8; BF MESOTHELIAL 43 %; BF MONOCYTE 1 %; BF TOTAL CELLS COUNTED 100
== END | disposition home or self-care (01) ==
LOC: RAH 07:37
PROVIDERS: ATTEND Internal Medicine
DX: R18.8 Other ascites (principal); K65.2 Spontaneous bacterial peritonitis; K74.69 Other cirrhosis of liver; I25.10 Atherosclerotic heart disease of native coronary artery without angina pectoris; I10 Essential (primary) hypertension; I12.9 Hypertensive chronic kidney disease with stage 1 through stage 4 chronic kidney disease, or unspecified chronic kidney disease; E11.22 Type 2 diabetes mellitus with diabetic chronic kidney disease; N18.9 Chronic kidney disease, unspecified; K21.00 Gastro-esophageal reflux disease with esophagitis, without bleeding; M19.90 Unspecified osteoarthritis, unspecified site; K21.9 Gastro-esophageal reflux disease without esophagitis; I85.00 Esophageal varices without bleeding; K81.9 Cholecystitis, unspecified; E78.9 Disorder of lipoprotein metabolism, unspecified; Z88.0 Allergy status to penicillin; Z80.9 Family history of malignant neoplasm, unspecified; Z82.49 Family history of ischemic heart disease and other diseases of the circulatory system; Z79.899 Other long term (current) drug therapy; Z90.49 Acquired absence of other specified parts of digestive tract
CPT/HCPCS: 49083; 84157; 89051; 87071; 87205; 82042; 88305; 88112; P9046; C1729

== ENCOUNTER → 2023-07-17 | Outpatient (CLI) | payer OTHER ==
[~2023-07-17] MED LIST changes: +MEMA5TAB16 PO; -MEMA5TAB42 PO; +PANT40TA54 PO; +SPIR100T5 PO
[2023-07-17 09:23] LABS: BASOPHILS # (AUTO) 0.03 K/uL (0.00-0.20); BASOPHILS % (AUTO) 0.6 % (0.0-5.0); EOSINOPHILS # (AUTO) 0.08 K/uL (0.00-0.70); EOSINOPHILS % (AUTO) 1.7 % (0.0-8.0); HEMATOCRIT 29.4 % (42-54); IMMATURE GRANULOCYTE ABSOLUTE 0.03 K/uL (0-1); LYMPHOCYTES # (AUTO) 0.8 K/uL (1.0-4.8); LYMPHOCYTES % (AUTO) 16.6 % (21.0-51.0); MEAN CORPUSCULAR HEMOGLOBIN 28.7 pg (27.0-33.0); MEAN CORPUSCULAR HGB CONC 32.7 g/dL (32.0-36.0); MONOCYTES # (AUTO) 0.6 K/uL (0.1-1.0); MONOCYTES % (AUTO) 11.7 % (3.0-13.0); NEUTROPHILS # (AUTO) 3.3 K/uL (1.8-7.7); NEUTROPHILS % (AUTO) 68.8 % (40.0-77.0); PLATELET COUNT (AUTO) 137 K/uL (130-400); RED BLOOD CELL COUNT(AUTO) 3.34 MIL/uL (4.50-6.20); RED CELL DISTRIBUTION WIDTH 14.5 % (11.0-15.5); WHITE BLOOD COUNT (AUTO) 4.8 K/uL (4.8-10.8)
[2023-07-17 09:30] LABS: INR 1.07 (0.85-1.15); PROTHROMBIN TIME 12.4 SEC (9.6-11.6)
== END | disposition home or self-care (01) ==
LOC: LAB 08:52
PROVIDERS: ATTEND Internal Medicine Gastroenterology
DX: K65.2 Spontaneous bacterial peritonitis (principal); K74.60 Unspecified cirrhosis of liver; Z79.01 Long term (current) use of anticoagulants
CPT/HCPCS: 36415; 82105; 82140; 85025; 85610; 85730

== ENCOUNTER → 2023-09-11 | Outpatient (CLI) | payer OTHER ==
[~2023-09-11] MED LIST changes: -MEMA5TAB16 PO; +MEMA5TAB42 PO; -PANT40TA54 PO; -POTA-364 PO; +POTA-79 PO; -SPIR100T5 PO
[2023-09-11] MEDS: ALBUMIN (HUMAN) 25% 200 ML IV SCH (11:00)
[2023-09-11 13:53] LABS: APPEARANCE BODY FLUID CLEAR (CLEAR); COLOR,BODY FLUID YELLOW (LT YELLOW); SPECIMENTYPE,BODY FLUID ASCITES
[2023-09-11 13:54] LABS: BODY FLUID RBC 2337 /cu. mm.; BODY FLUID WBC 350 /cu. mm.; TOTAL VOLUME,BODY FLUID 7500 mL
[2023-09-11 15:15] LABS: BF LYMPHOCYTE 37 %; BF MESOTHELIAL 21 %; BF MONOCYTE 13 %; BF TOTAL CELLS COUNTED 100
== END | disposition home or self-care (01) ==
LOC: RAH 07:49
PROVIDERS: ATTEND Internal Medicine
DX: R18.8 Other ascites (principal); K74.69 Other cirrhosis of liver; I85.10 Secondary esophageal varices without bleeding; K65.2 Spontaneous bacterial peritonitis; K76.82 Hepatic encephalopathy; K21.00 Gastro-esophageal reflux disease with esophagitis, without bleeding; E78.9 Disorder of lipoprotein metabolism, unspecified; E11.22 Type 2 diabetes mellitus with diabetic chronic kidney disease; I12.9 Hypertensive chronic kidney disease with stage 1 through stage 4 chronic kidney disease, or unspecified chronic kidney disease; N18.9 Chronic kidney disease, unspecified; M19.90 Unspecified osteoarthritis, unspecified site; Z86.16 Personal history of COVID-19; Z79.82 Long term (current) use of aspirin; Z90.49 Acquired absence of other specified parts of digestive tract; Z79.84 Long term (current) use of oral hypoglycemic drugs; Z98.890 Other specified postprocedural states; Z79.899 Other long term (current) drug therapy; Z79.01 Long term (current) use of anticoagulants
CPT/HCPCS: 49083; 89051; 87071; 87205; P9046; C1729; 96365

== ENCOUNTER → 2023-10-09 | Outpatient (CLI) | payer OTHER ==
[~2023-10-09] MED LIST changes: +ALBUMIN (HUMAN) 25% 200 ML IV ONE; +ALBUMIN (HUMAN) 25% 200 ML IV SCH; +MEMA5TAB16 PO; -MEMA5TAB42 PO; +PANT40TA54 PO; +POTA-364 PO; -POTA-79 PO; +SPIR100T5 PO
[2023-10-09 09:39] LABS: BASOPHILS # (AUTO) 0.03 K/uL (0.00-0.20); BASOPHILS % (AUTO) 0.6 % (0.0-5.0); EOSINOPHILS # (AUTO) 0.11 K/uL (0.00-0.70); EOSINOPHILS % (AUTO) 2.2 % (0.0-8.0); HEMATOCRIT 31.2 % (42-54); IMMATURE GRANULOCYTE ABSOLUTE 0.03 K/uL (0-1); MEAN CORPUSCULAR HEMOGLOBIN 28.8 pg (27.0-33.0); MEAN CORPUSCULAR HGB CONC 33.3 g/dL (32.0-36.0); MEAN CORPUSCULAR VOLUME 86.4 fL (79-99); MONOCYTES # (AUTO) 0.6 K/uL (0.1-1.0); NEUTROPHILS # (AUTO) 3.3 K/uL (1.8-7.7); NEUTROPHILS % (AUTO) 65.6 % (40.0-77.0); PLATELET COUNT (AUTO) 129 K/uL (130-400); RED BLOOD CELL COUNT(AUTO) 3.61 MIL/uL (4.50-6.20); RED CELL DISTRIBUTION WIDTH 14.6 % (11.0-15.5); WHITE BLOOD COUNT (AUTO) 5.1 K/uL (4.8-10.8)
[2023-10-09 09:52] LABS: PROTHROMBIN TIME 11.8 SEC (9.6-11.6)
[2023-10-09 10:04] LABS: ALBUMIN 2.7 g/dL (3.5-5.0); BILIRUBIN,TOTAL 1.2 mg/dL (0.2-1.0); CREATININE 2.8 mg/dL (0.5-1.3); POTASSIUM 3.4 mmol/L (3.5-5.1); TOTAL PROTEIN, SERUM 6.9 g/dL (6.0-8.3)
[2023-10-09 16:13] LABS: BODY FLUID RBC 213 /cu. mm.; BODY FLUID WBC 252 /cu. mm.
[2023-10-09 16:18] LABS: APPEARANCE BODY FLUID CLEAR (CLEAR); COLOR,BODY FLUID YELLOW (LT YELLOW); SPECIMENTYPE,BODY FLUID ASCITES; TOTAL VOLUME,BODY FLUID 6300 mL
[2023-10-09 18:16] LABS: BF LYMPHOCYTE 9 %; BF MACROPHAGE 19; BF MESOTHELIAL 1 %; BF MONOCYTE 2 %; BF OTHER CELLS 7; BF TOTAL CELLS COUNTED 100
== END | disposition home or self-care (01) ==
LOC: RAH 08:16
PROVIDERS: ATTEND Internal Medicine
DX: R18.8 Other ascites (principal); K74.69 Other cirrhosis of liver; I85.10 Secondary esophageal varices without bleeding; K65.2 Spontaneous bacterial peritonitis; K76.82 Hepatic encephalopathy; K21.00 Gastro-esophageal reflux disease with esophagitis, without bleeding; E78.9 Disorder of lipoprotein metabolism, unspecified; E11.22 Type 2 diabetes mellitus with diabetic chronic kidney disease; I12.9 Hypertensive chronic kidney disease with stage 1 through stage 4 chronic kidney disease, or unspecified chronic kidney disease; N18.9 Chronic kidney disease, unspecified; M19.90 Unspecified osteoarthritis, unspecified site; Z86.16 Personal history of COVID-19; Z79.82 Long term (current) use of aspirin; Z79.84 Long term (current) use of oral hypoglycemic drugs; Z79.899 Other long term (current) drug therapy; Z90.49 Acquired absence of other specified parts of digestive tract; Z79.01 Long term (current) use of anticoagulants
CPT/HCPCS: 49083; 80053; 85025; 89051; 85610; 85730; 87071; 87205; 36415; 88305; 88112; P9046; C1729; 96365

== ENCOUNTER 2023-10-10 05:53 | Day surgery (SDC) | payer OTHER ==
[2023-10-10] VITALS (11 sets, daily range): BP systolic 105–130; BP diastolic 61–77; PULSE 53–68; RESP 14–17
[~2023-10-10] VITALS: Ht 167.6 cm; Wt 72.6 kg
[~2023-10-10 05:53] MED LIST changes: -ALBUMIN (HUMAN) 25% 200 ML IV ONE; -ALBUMIN (HUMAN) 25% 200 ML IV SCH; -CARV6.25 PO; -GLYB5TAB8 PO; -POTA-364 PO
[2023-10-10] MEDS: 0.9%NACL 1000ML 1,000 ML IV ONE (07:14)
[2023-10-10] MEDS ORDERED: SIMETHICONE 40 MG/0.6 ML ML ONE (08:21)
[2023-10-10] MEDS ORDERED: PROPOFOL 10 MG/ML 20ML VIAL IV ONE (08:22)
[2023-10-10] MEDS ORDERED: EPHEDRINE SULFATE 50 MG/ML AMPULE ONE (08:22)
[2023-10-10] MEDS ORDERED: PHENYLEPHRINE HCL 10 MG/ML 1ML VIAL IV ONE (08:22)
== END 2023-10-10 10:00 | disposition home or self-care (01) ==
LOC: DAH 05:53 → ENDO 05:53 → EDSTATUS 17:00
PROVIDERS: ATTEND Internal Medicine
DX: K74.69 Other cirrhosis of liver (principal); I85.10 Secondary esophageal varices without bleeding; K31.7 Polyp of stomach and duodenum; K29.70 Gastritis, unspecified, without bleeding; K21.00 Gastro-esophageal reflux disease with esophagitis, without bleeding; K65.2 Spontaneous bacterial peritonitis; R18.8 Other ascites; K76.82 Hepatic encephalopathy; K81.9 Cholecystitis, unspecified; M19.90 Unspecified osteoarthritis, unspecified site; E11.22 Type 2 diabetes mellitus with diabetic chronic kidney disease; I12.9 Hypertensive chronic kidney disease with stage 1 through stage 4 chronic kidney disease, or unspecified chronic kidney disease; N18.9 Chronic kidney disease, unspecified; G47.00 Insomnia, unspecified; E78.9 Disorder of lipoprotein metabolism, unspecified; Z79.899 Other long term (current) drug therapy; Z79.01 Long term (current) use of anticoagulants; Z98.890 Other specified postprocedural states; Z86.19 Personal history of other infectious and parasitic diseases; Z86.16 Personal history of COVID-19; Z88.0 Allergy status to penicillin
CPT/HCPCS: 43244; 82948 ×2; 43239; J7030 ×2; J3490; J2704; J2371; A4620; A4215 ×2; A4223; A7002; A4222; A4221; A4663; A4606

== ENCOUNTER 2023-10-19 10:55 | Emergency (ER) | payer OTHER ==
[~2023-10-19] VITALS: Ht 167.6 cm; Wt 68.0 kg
[~2023-10-19 10:55] MED LIST changes: -FURO20TA4 PO
[2023-10-19 11:34] LABS: BASOPHILS # (AUTO) 0.04 K/uL (0.00-0.20); BASOPHILS % (AUTO) 0.6 % (0.0-5.0); EOSINOPHILS # (AUTO) 0.14 K/uL (0.00-0.70); HEMATOCRIT 29.8 % (42-54); IMMATURE GRANULOCYTE ABSOLUTE 0.05 K/uL (0-1); LYMPHOCYTES # (AUTO) 1.5 K/uL (1.0-4.8); LYMPHOCYTES % (AUTO) 21.4 % (21.0-51.0); MEAN CORPUSCULAR HEMOGLOBIN 28.9 pg (27.0-33.0); MEAN CORPUSCULAR HGB CONC 33.9 g/dL (32.0-36.0); MEAN CORPUSCULAR VOLUME 85.1 fL (79-99); MONOCYTES # (AUTO) 0.7 K/uL (0.1-1.0); MONOCYTES % (AUTO) 9.7 % (3.0-13.0); NEUTROPHILS # (AUTO) 4.6 K/uL (1.8-7.7); NEUTROPHILS % (AUTO) 65.6 % (40.0-77.0); PLATELET COUNT (AUTO) 161 K/uL (130-400); RED CELL DISTRIBUTION WIDTH 14.6 % (11.0-15.5); WHITE BLOOD COUNT (AUTO) 6.9 K/uL (4.8-10.8)
[2023-10-19 11:51] LABS: ALBUMIN 3.1 g/dL (3.5-5.0); BILIRUBIN,TOTAL 1.3 mg/dL (0.2-1.0); CREATININE 2.7 mg/dL (0.5-1.3); POTASSIUM 3.4 mmol/L (3.5-5.1); TOTAL PROTEIN, SERUM 7.3 g/dL (6.0-8.3)
[2023-10-19 14:22] VITALS: BP 118/65; PULSE 60; RESP 17; O2SAT 96
== END 2023-10-19 15:07 | disposition home or self-care (01) ==
LOC: EDH 10:55
DX: R07.9 Chest pain, unspecified (principal); I10 Essential (primary) hypertension; E11.9 Type 2 diabetes mellitus without complications; Z88.0 Allergy status to penicillin; Z90.49 Acquired absence of other specified parts of digestive tract; Z79.899 Other long term (current) drug therapy
CPT/HCPCS: 36415; 71045; 80053; 84484; 85025; 93005

== ENCOUNTER → 2023-10-23 | Outpatient (CLI) | payer OTHER ==
[~2023-10-23] MED LIST changes: +ALBUMIN (HUMAN) 25% 200 ML IV ONE
[2023-10-23 15:01] LABS: BODY FLUID RBC 3219 /cu. mm.; BODY FLUID WBC 931 /cu. mm.
[2023-10-23 15:52] LABS: SPECIMENTYPE,BODY FLUID ASCITES
[2023-10-23 15:53] LABS: APPEARANCE BODY FLUID SLIGHTLY CLOUDY (CLEAR); COLOR,BODY FLUID YELLOW (LT YELLOW); TOTAL VOLUME,BODY FLUID 2200 mL
[2023-10-23 18:55] LABS: BF LYMPHOCYTE 70 %; BF MACROPHAGE 26; BF MONOCYTE 1 %; BF TOTAL CELLS COUNTED 100
== END | disposition home or self-care (01) ==
LOC: RAH 07:41
PROVIDERS: ATTEND Internal Medicine
DX: R18.8 Other ascites (principal); K74.69 Other cirrhosis of liver; I85.10 Secondary esophageal varices without bleeding; K65.2 Spontaneous bacterial peritonitis; K76.82 Hepatic encephalopathy; K21.00 Gastro-esophageal reflux disease with esophagitis, without bleeding; E78.9 Disorder of lipoprotein metabolism, unspecified; E11.22 Type 2 diabetes mellitus with diabetic chronic kidney disease; I12.9 Hypertensive chronic kidney disease with stage 1 through stage 4 chronic kidney disease, or unspecified chronic kidney disease; N18.9 Chronic kidney disease, unspecified; M19.90 Unspecified osteoarthritis, unspecified site; Z86.16 Personal history of COVID-19; Z79.82 Long term (current) use of aspirin; Z79.84 Long term (current) use of oral hypoglycemic drugs; Z79.899 Other long term (current) drug therapy; Z90.49 Acquired absence of other specified parts of digestive tract; Z98.890 Other specified postprocedural states; Z79.01 Long term (current) use of anticoagulants
CPT/HCPCS: 49083; 89051; 87071; 87205; P9046; C1729

== ENCOUNTER → 2023-11-06 | Outpatient (CLI) | payer OTHER ==
[2023-11-06 11:20] LABS: APPEARANCE BODY FLUID CLEAR (CLEAR); COLOR,BODY FLUID YELLOW (LT YELLOW); SPECIMENTYPE,BODY FLUID ASCITES; TOTAL VOLUME,BODY FLUID 2000 mL
[2023-11-06 11:35] LABS: BODY FLUID RBC 613 /cu. mm.; BODY FLUID WBC 843 /cu. mm.
[2023-11-06 12:17] LABS: BF LYMPHOCYTE 60 %; BF MESOTHELIAL 21 %; BF MONOCYTE 9 %; BF TOTAL CELLS COUNTED 100
== END | disposition home or self-care (01) ==
LOC: RAH 08:13
PROVIDERS: ATTEND Internal Medicine
DX: R18.8 Other ascites (principal); K74.69 Other cirrhosis of liver; I85.10 Secondary esophageal varices without bleeding; K65.2 Spontaneous bacterial peritonitis; K76.82 Hepatic encephalopathy; K21.00 Gastro-esophageal reflux disease with esophagitis, without bleeding; E78.9 Disorder of lipoprotein metabolism, unspecified; E11.22 Type 2 diabetes mellitus with diabetic chronic kidney disease; I12.9 Hypertensive chronic kidney disease with stage 1 through stage 4 chronic kidney disease, or unspecified chronic kidney disease; N18.9 Chronic kidney disease, unspecified; M19.90 Unspecified osteoarthritis, unspecified site; Z86.16 Personal history of COVID-19; Z79.82 Long term (current) use of aspirin; Z79.899 Other long term (current) drug therapy; Z79.84 Long term (current) use of oral hypoglycemic drugs; Z98.890 Other specified postprocedural states; Z79.01 Long term (current) use of anticoagulants
CPT/HCPCS: 49083; 89051; 87071; 87205; P9046; C1729; 96365

== ENCOUNTER → 2023-12-04 | Outpatient (CLI) | payer OTHER ==
[2023-12-04 09:11] LABS: BASOPHILS # (AUTO) 0.02 K/uL (0.00-0.20); BASOPHILS % (AUTO) 0.5 % (0.0-5.0); EOSINOPHILS # (AUTO) 0.07 K/uL (0.00-0.70); EOSINOPHILS % (AUTO) 1.8 % (0.0-8.0); IMMATURE GRANULOCYTE ABSOLUTE 0.03 K/uL (0-1); LYMPHOCYTES # (AUTO) 0.8 K/uL (1.0-4.8); LYMPHOCYTES % (AUTO) 20.4 % (21.0-51.0); MEAN CORPUSCULAR HEMOGLOBIN 29.5 pg (27.0-33.0); MEAN CORPUSCULAR HGB CONC 32.9 g/dL (32.0-36.0); MEAN CORPUSCULAR VOLUME 89.6 fL (79-99); MONOCYTES # (AUTO) 0.6 K/uL (0.1-1.0); MONOCYTES % (AUTO) 15.8 % (3.0-13.0); NEUTROPHILS # (AUTO) 2.4 K/uL (1.8-7.7); NEUTROPHILS % (AUTO) 60.7 % (40.0-77.0); PLATELET COUNT (AUTO) 122 K/uL (130-400); RED BLOOD CELL COUNT(AUTO) 3.46 MIL/uL (4.50-6.20); RED CELL DISTRIBUTION WIDTH 15.1 % (11.0-15.5); WHITE BLOOD COUNT (AUTO) 3.9 K/uL (4.8-10.8)
[2023-12-04 09:29] LABS: ALBUMIN 2.9 g/dL (3.5-5.0); CREATININE 2.6 mg/dL (0.5-1.3); POTASSIUM 3.5 mmol/L (3.5-5.1); TOTAL PROTEIN, SERUM 6.7 g/dL (6.0-8.3)
[2023-12-04 09:59] LABS: INR 1.14 (0.85-1.15); PARTIAL THROMBOPLASTIN TIME 28.1 SEC (26.3-35.5)
[2023-12-04 16:04] LABS: BODY FLUID RBC 191 /cu. mm.; BODY FLUID WBC 218 /cu. mm.
[2023-12-04 16:11] LABS: APPEARANCE BODY FLUID CLEAR (CLEAR); COLOR,BODY FLUID YELLOW (LT YELLOW); SPECIMENTYPE,BODY FLUID ASCITES; TOTAL VOLUME,BODY FLUID 6000 mL
[2023-12-04 17:46] LABS: BF LYMPHOCYTE 23 %; BF MACROPHAGE 60; BF MESOTHELIAL 1 %; BF MONOCYTE 1 %; BF OTHER CELLS 1; BF TOTAL CELLS COUNTED 100
== END | disposition home or self-care (01) ==
LOC: RAH 07:56
PROVIDERS: ATTEND Internal Medicine
DX: R18.8 Other ascites (principal); K74.69 Other cirrhosis of liver; I85.10 Secondary esophageal varices without bleeding; K65.2 Spontaneous bacterial peritonitis; K76.82 Hepatic encephalopathy; K21.00 Gastro-esophageal reflux disease with esophagitis, without bleeding; E78.9 Disorder of lipoprotein metabolism, unspecified; E11.22 Type 2 diabetes mellitus with diabetic chronic kidney disease; I12.9 Hypertensive chronic kidney disease with stage 1 through stage 4 chronic kidney disease, or unspecified chronic kidney disease; N18.9 Chronic kidney disease, unspecified; M19.90 Unspecified osteoarthritis, unspecified site; Z86.16 Personal history of COVID-19; Z79.84 Long term (current) use of oral hypoglycemic drugs; Z90.49 Acquired absence of other specified parts of digestive tract; Z98.890 Other specified postprocedural states; Z79.899 Other long term (current) drug therapy; Z79.01 Long term (current) use of anticoagulants
CPT/HCPCS: 49083; 80053; 85025; 89051; 85610; 85730; 87071; 87205; 36415; P9046; C1729

== ENCOUNTER 2023-12-10 08:06 | Day surgery (SDC) | payer OTHER ==
[~2023-12-10] VITALS: Ht 165.1 cm; Wt 70.8 kg
[2023-12-10] VITALS (11 sets, daily range): BP systolic 98–131; BP diastolic 64–79; PULSE 58–73; RESP 14–16
[~2023-12-10 08:06] MED LIST changes: -ALBUMIN (HUMAN) 25% 200 ML IV ONE; +ATOR10 PO; -ATOR40TA71 PO; +FURO40TA5 PO; +GABA-529 PO; +IRON1CAP30 PO; -ISOS30TA92 PO; -NITR0.4T50 SL
[2023-12-10] MEDS: 0.9%NACL 1000ML 1,000 ML IV ONE (10:12)
[2023-12-10] MEDS ORDERED: PROPOFOL 10 MG/ML 20ML VIAL IV ONE (10:37)
== END 2023-12-10 11:45 | disposition home or self-care (01) ==
LOC: ENDO 08:06 → DAH 08:06 → ENDO 11:45
PROVIDERS: ATTEND Internal Medicine Gastroenterology
DX: K74.69 Other cirrhosis of liver (principal); I85.10 Secondary esophageal varices without bleeding; K76.6 Portal hypertension; K31.89 Other diseases of stomach and duodenum; K21.00 Gastro-esophageal reflux disease with esophagitis, without bleeding; R18.8 Other ascites; K76.82 Hepatic encephalopathy; K65.2 Spontaneous bacterial peritonitis; K81.9 Cholecystitis, unspecified; E78.9 Disorder of lipoprotein metabolism, unspecified; M19.90 Unspecified osteoarthritis, unspecified site; I12.9 Hypertensive chronic kidney disease with stage 1 through stage 4 chronic kidney disease, or unspecified chronic kidney disease; E11.22 Type 2 diabetes mellitus with diabetic chronic kidney disease; N18.9 Chronic kidney disease, unspecified; Z82.49 Family history of ischemic heart disease and other diseases of the circulatory system; Z88.0 Allergy status to penicillin; Z79.84 Long term (current) use of oral hypoglycemic drugs; Z79.899 Other long term (current) drug therapy; Z90.49 Acquired absence of other specified parts of digestive tract
CPT/HCPCS: 43235; 82948 ×2; J7030; J2704; A4620; A4215; A4223; A4222; A4221; A4663; A4606; J3490

== ENCOUNTER → 2024-01-01 | Outpatient (CLI) | payer OTHER ==
[~2024-01-01] MED LIST changes: +ALBUMIN (HUMAN) 25% 200 ML IV ONE
[2024-01-01 14:08] LABS: APPEARANCE BODY FLUID CLEAR (CLEAR); COLOR,BODY FLUID YELLOW (LT YELLOW); SPECIMENTYPE,BODY FLUID ASCITES; TOTAL VOLUME,BODY FLUID 6700 mL
[2024-01-01 14:16] LABS: BODY FLUID RBC 60 /cu. mm.; BODY FLUID WBC 328 /cu. mm.
[2024-01-01 14:53] LABS: BF LYMPHOCYTE 21 %; BF MESOTHELIAL 70 %; BF MONOCYTE 5 %; BF TOTAL CELLS COUNTED 100
== END | disposition home or self-care (01) ==
LOC: RAH 07:53
PROVIDERS: ATTEND Internal Medicine
DX: R18.8 Other ascites (principal); K74.60 Unspecified cirrhosis of liver
CPT/HCPCS: 49083; 89051; 87071; 87205; P9046; C1729

== ENCOUNTER → 2024-01-15 | Outpatient (CLI) | payer OTHER ==
[2024-01-15 08:55] LABS: BASOPHILS # (AUTO) 0.04 K/uL (0.00-0.20); BASOPHILS % (AUTO) 0.8 % (0.0-5.0); EOSINOPHILS # (AUTO) 0.15 K/uL (0.00-0.70); HEMATOCRIT 32.3 % (42-54); IMMATURE GRANULOCYTE ABSOLUTE 0.03 K/uL (0-1); LYMPHOCYTES % (AUTO) 19.5 % (21.0-51.0); MEAN CORPUSCULAR HEMOGLOBIN 29.6 pg (27.0-33.0); MEAN CORPUSCULAR HGB CONC 33.1 g/dL (32.0-36.0); MEAN CORPUSCULAR VOLUME 89.5 fL (79-99); MONOCYTES # (AUTO) 0.5 K/uL (0.1-1.0); MONOCYTES % (AUTO) 10.8 % (3.0-13.0); NEUTROPHILS # (AUTO) 3.2 K/uL (1.8-7.7); NEUTROPHILS % (AUTO) 65.3 % (40.0-77.0); PLATELET COUNT (AUTO) 125 K/uL (130-400); RED BLOOD CELL COUNT(AUTO) 3.61 MIL/uL (4.50-6.20); RED CELL DISTRIBUTION WIDTH 14.9 % (11.0-15.5); WHITE BLOOD COUNT (AUTO) 4.9 K/uL (4.8-10.8)
[2024-01-15 09:08] LABS: INR 1.23 (0.85-1.15); PROTHROMBIN TIME 13.1 SEC (9.6-11.6)
[2024-01-15 09:09] LABS: PARTIAL THROMBOPLASTIN TIME 31.9 SEC (26.3-35.5)
[2024-01-15 09:20] LABS: ALBUMIN 2.9 g/dL (3.5-5.0); BILIRUBIN,TOTAL 1.1 mg/dL (0.2-1.0); CREATININE 3.1 mg/dL (0.5-1.3); POTASSIUM 3.6 mmol/L (3.5-5.1); TOTAL PROTEIN, SERUM 6.8 g/dL (6.0-8.3)
[2024-01-15 17:14] LABS: APPEARANCE BODY FLUID CLEAR (CLEAR); COLOR,BODY FLUID YELLOW (LT YELLOW); SPECIMENTYPE,BODY FLUID ASCITES; TOTAL VOLUME,BODY FLUID 4600 mL
[2024-01-15 17:19] LABS: BODY FLUID RBC 179 /cu. mm.; BODY FLUID WBC 258 /cu. mm.
[2024-01-15 17:30] LABS: ALBUMIN,BODY FLUID 1.5 g/dL; TOTAL PROTEIN,BODY FLUID 3.5 g/dL
[2024-01-15 19:13] LABS: BF LYMPHOCYTE 33 %; BF MACROPHAGE 51; BF OTHER CELLS 6; BF TOTAL CELLS COUNTED 100
== END | disposition home or self-care (01) ==
LOC: RAH 07:38
PROVIDERS: ATTEND Internal Medicine
DX: K70.31 Alcoholic cirrhosis of liver with ascites (principal); I85.10 Secondary esophageal varices without bleeding; K76.82 Hepatic encephalopathy; K65.2 Spontaneous bacterial peritonitis; K81.9 Cholecystitis, unspecified; K21.00 Gastro-esophageal reflux disease with esophagitis, without bleeding; I12.9 Hypertensive chronic kidney disease with stage 1 through stage 4 chronic kidney disease, or unspecified chronic kidney disease; E11.22 Type 2 diabetes mellitus with diabetic chronic kidney disease; M19.90 Unspecified osteoarthritis, unspecified site; Z90.49 Acquired absence of other specified parts of digestive tract; Z86.16 Personal history of COVID-19; Z79.01 Long term (current) use of anticoagulants; Z79.899 Other long term (current) drug therapy
CPT/HCPCS: 49083; 84157; 80053; 85025; 89051; 85610; 85730; 87071; 87076; 87205; 82105; 82042; 36415; 88305; 88112; P9046; C1729; 96365

== ENCOUNTER → 2024-01-29 | Outpatient (CLI) | payer OTHER ==
[2024-01-29 09:26] LABS: BASOPHILS # (AUTO) 0.03 K/uL (0.00-0.20); BASOPHILS % (AUTO) 0.5 % (0.0-5.0); EOSINOPHILS # (AUTO) 0.12 K/uL (0.00-0.70); IMMATURE GRANULOCYTE ABSOLUTE 0.04 K/uL (0-1); LYMPHOCYTES # (AUTO) 1.2 K/uL (1.0-4.8); LYMPHOCYTES % (AUTO) 19.5 % (21.0-51.0); MEAN CORPUSCULAR HEMOGLOBIN 28.9 pg (27.0-33.0); MEAN CORPUSCULAR VOLUME 87.5 fL (79-99); MONOCYTES # (AUTO) 0.7 K/uL (0.1-1.0); MONOCYTES % (AUTO) 11.1 % (3.0-13.0); NEUTROPHILS % (AUTO) 66.2 % (40.0-77.0); PLATELET COUNT (AUTO) 139 K/uL (130-400); RED BLOOD CELL COUNT(AUTO) 3.77 MIL/uL (4.50-6.20); RED CELL DISTRIBUTION WIDTH 15.1 % (11.0-15.5); WHITE BLOOD COUNT (AUTO) 6.1 K/uL (4.8-10.8)
[2024-01-29 09:35] LABS: INR 1.21 (0.85-1.15); PROTHROMBIN TIME 12.9 SEC (9.6-11.6)
[2024-01-29 09:37] LABS: PARTIAL THROMBOPLASTIN TIME 31.4 SEC (26.3-35.5)
[2024-01-29 09:44] LABS: ALBUMIN 3.1 g/dL (3.5-5.0); BILIRUBIN,TOTAL 1.6 mg/dL (0.2-1.0); CREATININE 3.3 mg/dL (0.5-1.3); POTASSIUM 4.8 mmol/L (3.5-5.1); TOTAL PROTEIN, SERUM 7.1 g/dL (6.0-8.3)
[2024-01-29 14:24] LABS: ALBUMIN,BODY FLUID 1.5 g/dL; TOTAL PROTEIN,BODY FLUID 3.4 g/dL
[2024-01-29 15:31] LABS: BODY FLUID RBC 194636 /cu. mm.; BODY FLUID WBC 278 /cu. mm.
[2024-01-29 17:01] LABS: APPEARANCE BODY FLUID BLOODY (CLEAR); COLOR,BODY FLUID RED (LT YELLOW); SPECIMENTYPE,BODY FLUID ASCITES
[2024-01-29 17:02] LABS: TOTAL VOLUME,BODY FLUID 6000 mL
[2024-01-29 17:07] LABS: BF LYMPHOCYTE 75 %; BF MESOTHELIAL 19 %; BF TOTAL CELLS COUNTED 100
== END | disposition home or self-care (01) ==
LOC: RAH 08:18
PROVIDERS: ATTEND Internal Medicine
DX: K70.31 Alcoholic cirrhosis of liver with ascites (principal); K76.82 Hepatic encephalopathy; K65.2 Spontaneous bacterial peritonitis; K81.9 Cholecystitis, unspecified; K21.00 Gastro-esophageal reflux disease with esophagitis, without bleeding; E78.9 Disorder of lipoprotein metabolism, unspecified; I85.10 Secondary esophageal varices without bleeding; Z86.16 Personal history of COVID-19; M19.90 Unspecified osteoarthritis, unspecified site; I12.9 Hypertensive chronic kidney disease with stage 1 through stage 4 chronic kidney disease, or unspecified chronic kidney disease; E11.22 Type 2 diabetes mellitus with diabetic chronic kidney disease; N18.9 Chronic kidney disease, unspecified; Z90.49 Acquired absence of other specified parts of digestive tract; Z79.01 Long term (current) use of anticoagulants; Z88.0 Allergy status to penicillin; Z79.899 Other long term (current) drug therapy
CPT/HCPCS: 49083; 84157; 80053; 85025; 89051; 85610; 85730; 87071; 87076; 87205; 82105; 82042; 36415; 88305; 88112; P9046; C1729; 96365

== ENCOUNTER → 2024-02-26 | Outpatient (CLI) | payer OTHER ==
[2024-02-26 15:29] LABS: APPEARANCE BODY FLUID BLOODY (CLEAR); COLOR,BODY FLUID RED (LT YELLOW); SPECIMENTYPE,BODY FLUID ASCITES; TOTAL VOLUME,BODY FLUID 5200 mL
[2024-02-26 15:41] LABS: ALBUMIN,BODY FLUID 1.4 g/dL; BODY FLUID RBC 521211 /cu. mm.; BODY FLUID WBC 406 /cu. mm.; TOTAL PROTEIN,BODY FLUID 3.5 g/dL
[2024-02-26 17:58] LABS: BF EOSINOPHIL 1 %; BF LYMPHOCYTE 25 %; BF MACROPHAGE 4; BF MONOCYTE 1 %; BF TOTAL CELLS COUNTED 100
== END | disposition home or self-care (01) ==
LOC: RAH 07:56
PROVIDERS: ATTEND Internal Medicine
DX: K70.31 Alcoholic cirrhosis of liver with ascites (principal); I85.10 Secondary esophageal varices without bleeding; K65.2 Spontaneous bacterial peritonitis; K76.82 Hepatic encephalopathy; K21.00 Gastro-esophageal reflux disease with esophagitis, without bleeding; E78.9 Disorder of lipoprotein metabolism, unspecified; M19.90 Unspecified osteoarthritis, unspecified site; I12.9 Hypertensive chronic kidney disease with stage 1 through stage 4 chronic kidney disease, or unspecified chronic kidney disease; E11.22 Type 2 diabetes mellitus with diabetic chronic kidney disease; N18.9 Chronic kidney disease, unspecified; Z90.49 Acquired absence of other specified parts of digestive tract; Z86.16 Personal history of COVID-19; Z88.0 Allergy status to penicillin; Z79.899 Other long term (current) drug therapy
CPT/HCPCS: 49083; 84157; 89051; 87071; 87076; 87205; 82042; P9046; C1729

== ENCOUNTER → 2024-03-11 | Outpatient (CLI) | payer OTHER ==
[2024-03-11 13:58] LABS: APPEARANCE BODY FLUID TURBID (CLEAR); COLOR,BODY FLUID RED (LT YELLOW); SPECIMENTYPE,BODY FLUID ASCITES; TOTAL VOLUME,BODY FLUID 4700 mL
[2024-03-11 14:03] LABS: ALBUMIN,BODY FLUID 1.5 g/dL; TOTAL PROTEIN,BODY FLUID 3.6 g/dL
[2024-03-11 14:28] LABS: BF LYMPHOCYTE 29 %; BF MACROPHAGE 5; BF MESOTHELIAL 51 %; BF MONOCYTE 11 %; BF OTHER CELLS 3; BF TOTAL CELLS COUNTED 100
[2024-03-11 14:30] LABS: BODY FLUID RBC 88968 /cu. mm.; BODY FLUID WBC 316 /cu. mm.
== END | disposition home or self-care (01) ==
LOC: RAH 10:00
PROVIDERS: ATTEND Internal Medicine
DX: R18.8 Other ascites (principal); K74.60 Unspecified cirrhosis of liver; I85.10 Secondary esophageal varices without bleeding; K76.82 Hepatic encephalopathy; K65.2 Spontaneous bacterial peritonitis; K21.00 Gastro-esophageal reflux disease with esophagitis, without bleeding; E78.9 Disorder of lipoprotein metabolism, unspecified; I12.9 Hypertensive chronic kidney disease with stage 1 through stage 4 chronic kidney disease, or unspecified chronic kidney disease; E11.22 Type 2 diabetes mellitus with diabetic chronic kidney disease; N18.9 Chronic kidney disease, unspecified; M19.90 Unspecified osteoarthritis, unspecified site; Z90.49 Acquired absence of other specified parts of digestive tract; Z86.16 Personal history of COVID-19; Z88.0 Allergy status to penicillin; Z79.01 Long term (current) use of anticoagulants; Z79.899 Other long term (current) drug therapy
CPT/HCPCS: 49083; 84157; 89051; 87071; 87205; 82042; 88305; 88112; P9046; C1729; 96365

== ENCOUNTER → 2024-03-25 | Outpatient (CLI) | payer OTHER ==
[~2024-03-25] MED LIST changes: +ESCI5TAB16 PO; +MELATONIN PO; +MEMA10TA21 PO; +SPIR50TA PO
[2024-03-25 09:14] LABS: BASOPHILS # (AUTO) 0.05 K/uL (0.00-0.20); BASOPHILS % (AUTO) 0.8 % (0.0-5.0); EOSINOPHILS # (AUTO) 0.12 K/uL (0.00-0.70); EOSINOPHILS % (AUTO) 1.8 % (0.0-8.0); HEMATOCRIT 34.1 % (42-54); IMMATURE GRANULOCYTE ABSOLUTE 0.07 K/uL (0-1); LYMPHOCYTES % (AUTO) 15.3 % (21.0-51.0); MEAN CORPUSCULAR HEMOGLOBIN 28.8 pg (27.0-33.0); MEAN CORPUSCULAR HGB CONC 32.8 g/dL (32.0-36.0); MEAN CORPUSCULAR VOLUME 87.7 fL (79-99); MONOCYTES # (AUTO) 0.8 K/uL (0.1-1.0); MONOCYTES % (AUTO) 11.7 % (3.0-13.0); NEUTROPHILS # (AUTO) 4.6 K/uL (1.8-7.7); NEUTROPHILS % (AUTO) 69.3 % (40.0-77.0); PLATELET COUNT (AUTO) 164 K/uL (130-400); RED BLOOD CELL COUNT(AUTO) 3.89 MIL/uL (4.50-6.20); RED CELL DISTRIBUTION WIDTH 14.5 % (11.0-15.5); WHITE BLOOD COUNT (AUTO) 6.7 K/uL (4.8-10.8)
[2024-03-25 10:05] LABS: INR 1.27 (0.85-1.15); PROTHROMBIN TIME 13.5 SEC (9.6-11.6)
[2024-03-25 10:06] LABS: PARTIAL THROMBOPLASTIN TIME 32.8 SEC (26.3-35.5)
[2024-03-25 10:09] LABS: BILIRUBIN,TOTAL 1.4 mg/dL (0.2-1.0); CREATININE 3.2 mg/dL (0.5-1.3); POTASSIUM 3.7 mmol/L (3.5-5.1); TOTAL PROTEIN, SERUM 6.9 g/dL (6.0-8.3)
[2024-03-25 13:38] LABS: APPEARANCE BODY FLUID CLOUDY (CLEAR); COLOR,BODY FLUID DARK YELLOW (LT YELLOW); SPECIMENTYPE,BODY FLUID ASCITES; TOTAL VOLUME,BODY FLUID 4000 mL
[2024-03-25 13:43] LABS: ALBUMIN,BODY FLUID 1.4 g/dL; BODY FLUID RBC 5292 /cu. mm.; BODY FLUID WBC 277 /cu. mm.; TOTAL PROTEIN,BODY FLUID 3.2 g/dL
[2024-03-25 13:49] LABS: BF LYMPHOCYTE 28 %; BF MACROPHAGE 19; BF MESOTHELIAL 37 %; BF MONOCYTE 11 %; BF OTHER CELLS 2; BF TOTAL CELLS COUNTED 100
== END | disposition home or self-care (01) ==
LOC: RAH 07:56
PROVIDERS: ATTEND Internal Medicine
DX: R18.8 Other ascites (principal); K74.60 Unspecified cirrhosis of liver; R63.4 Abnormal weight loss; R68.81 Early satiety; K92.1 Melena; I85.10 Secondary esophageal varices without bleeding; K76.82 Hepatic encephalopathy; K65.2 Spontaneous bacterial peritonitis; K21.00 Gastro-esophageal reflux disease with esophagitis, without bleeding; I12.9 Hypertensive chronic kidney disease with stage 1 through stage 4 chronic kidney disease, or unspecified chronic kidney disease; E11.22 Type 2 diabetes mellitus with diabetic chronic kidney disease; N18.9 Chronic kidney disease, unspecified; M19.90 Unspecified osteoarthritis, unspecified site; Z86.16 Personal history of COVID-19; Z90.49 Acquired absence of other specified parts of digestive tract; Z79.01 Long term (current) use of anticoagulants; Z79.899 Other long term (current) drug therapy
CPT/HCPCS: 49083; 71046; 84443; 84157; 80053; 85025; 89051; 85610; 85730; 87071; 87205; 82042; 36415; 88305; 88112; P9046; C1729; 96365

== ENCOUNTER 2024-04-01 08:35 | Day surgery (SDC) | payer OTHER ==
[2024-04-01] VITALS (11 sets, daily range): BP systolic 104–126; BP diastolic 56–79; PULSE 67–94; RESP 15–17; TEMP 96.6–97.9
[~2024-04-01] VITALS: Ht 167.6 cm; Wt 65.8 kg
[~2024-04-01 08:35] MED LIST changes: -ALBUMIN (HUMAN) 25% 200 ML IV ONE; -GABA-529 PO; -MEMA5TAB16 PO; -SPIR100T5 PO
[2024-04-01] MEDS: 0.9%NACL 1000ML 1,000 ML IV ONE (11:00)
[2024-04-01] MEDS ORDERED: proPOFol 10 MG/ML 20ML VIAL IV ONE (12:45)
[2024-04-01] MEDS ORDERED: ePHEDrine SULFate 50 MG/ML AMPULE ONE (12:53)
== END 2024-04-01 13:58 | disposition home or self-care (01) ==
LOC: DAH 08:35
PROVIDERS: ATTEND Internal Medicine Gastroenterology
DX: K92.1 Melena (principal); K29.50 Unspecified chronic gastritis without bleeding; K74.60 Unspecified cirrhosis of liver; I85.10 Secondary esophageal varices without bleeding; R63.4 Abnormal weight loss; M19.90 Unspecified osteoarthritis, unspecified site; I12.9 Hypertensive chronic kidney disease with stage 1 through stage 4 chronic kidney disease, or unspecified chronic kidney disease; E11.22 Type 2 diabetes mellitus with diabetic chronic kidney disease; N18.9 Chronic kidney disease, unspecified; R68.81 Early satiety; R18.8 Other ascites; K76.82 Hepatic encephalopathy; K65.2 Spontaneous bacterial peritonitis; K21.00 Gastro-esophageal reflux disease with esophagitis, without bleeding; Z90.49 Acquired absence of other specified parts of digestive tract; Z88.0 Allergy status to penicillin; Z79.899 Other long term (current) drug therapy
CPT/HCPCS: 43239; 82948 ×2; J7030; J3490; J2704; A4615; A4215 ×2; A4223; A4657; A4222; A4221; A4663; A4606

== ENCOUNTER → 2024-04-08 | Outpatient (CLI) | payer OTHER ==
[~2024-04-08] MED LIST changes: +ALBUMIN (HUMAN) 25% 200 ML IV ONE
[2024-04-08 11:20] LABS: SPECIMENTYPE,BODY FLUID ASCITES; TOTAL VOLUME,BODY FLUID 6900 mL
[2024-04-08 11:21] LABS: APPEARANCE BODY FLUID CLEAR (CLEAR); COLOR,BODY FLUID YELLOW (LT YELLOW)
[2024-04-08 11:36] LABS: ALBUMIN,BODY FLUID 1.2 g/dL; TOTAL PROTEIN,BODY FLUID 2.7 g/dL
[2024-04-08 11:48] LABS: BODY FLUID RBC 2805 /cu. mm.; BODY FLUID WBC 74 /cu. mm.
[2024-04-08 12:22] LABS: BF LYMPHOCYTE 50 %; BF MESOTHELIAL 27 %; BF MONOCYTE 18 %; BF TOTAL CELLS COUNTED 100
== END | disposition home or self-care (01) ==
LOC: RAH 07:50
PROVIDERS: ATTEND Internal Medicine
DX: R18.8 Other ascites (principal); K74.60 Unspecified cirrhosis of liver; R63.4 Abnormal weight loss; R68.81 Early satiety; K92.1 Melena; I85.10 Secondary esophageal varices without bleeding; K76.82 Hepatic encephalopathy; K65.2 Spontaneous bacterial peritonitis; K21.00 Gastro-esophageal reflux disease with esophagitis, without bleeding; I12.9 Hypertensive chronic kidney disease with stage 1 through stage 4 chronic kidney disease, or unspecified chronic kidney disease; E11.9 Type 2 diabetes mellitus without complications; N18.9 Chronic kidney disease, unspecified; M19.90 Unspecified osteoarthritis, unspecified site; Z90.49 Acquired absence of other specified parts of digestive tract; Z86.16 Personal history of COVID-19; Z88.0 Allergy status to penicillin; Z79.01 Long term (current) use of anticoagulants; Z79.899 Other long term (current) drug therapy
CPT/HCPCS: 49083; 84157; 89051; 87071; 87205; 82042; P9046; C1729; 96365

== ENCOUNTER → 2024-04-22 | Outpatient (CLI) | payer OTHER ==
[~2024-04-22] MED LIST changes: -ALBUMIN (HUMAN) 25% 200 ML IV ONE
--- NOTE | 2024-04-22 09:55 | NUR ---
U/S GUIDED PARACENTESIS TOLERATED PROCEDURE. PERFORMED BY DR PIERCE. PUNCTURE SITE TO RLQ. 6.0 LITERS OF YELLOW CLEAR FLUID REMOVED. END OF PROCEDURE AT 0935. ALBUMIN 25% 50 GRAMS GIVEN PER PROTOCOL. DRESSING DRY AND INTACT. NO BLEEDING NOTED. DISCHARGE INSTRUCTIONS GIVEN. SPOUSE AT BEDSIDE. DISCHARGED VIA WHEELCHAIR. A&O. DENIES PAIN.
--- NOTE | 2024-04-22 11:17 | HMCIMG ---
US ABDOMINAL PARACENTESIS IR REASON: ASCITES TECHNIQUE: Paracentesis was performed with ultrasound guidance. The puncture site was selected in the Right lower quadrant and overlying skin prepped and draped in a sterile fashion. 1% Xylocaine infiltration was performed. Catheter was placed in the fluid using trocar technique. 6 L were removed. Fluid sample was submitted for laboratory evaluation. The patient showed no evidence of complication during the procedure. IMPRESSION: 1. Ultrasound-guided paracentesis.
[2024-04-22 12:33] LABS: APPEARANCE BODY FLUID CLEAR (CLEAR); COLOR,BODY FLUID YELLOW (LT YELLOW); SPECIMENTYPE,BODY FLUID ASCITES; TOTAL VOLUME,BODY FLUID 6000 mL
[2024-04-22 12:50] LABS: BODY FLUID RBC 46 /cu. mm.; BODY FLUID WBC 130 /cu. mm.
[2024-04-22 13:15] LABS: BF LYMPHOCYTE 49 %; BF MESOTHELIAL 20 %; BF MONOCYTE 22 %; BF TOTAL CELLS COUNTED 100
[2024-04-22 13:22] LABS: ALBUMIN,BODY FLUID 1.2 g/dL; TOTAL PROTEIN,BODY FLUID 2.8 g/dL
== END | disposition home or self-care (01) ==
LOC: RAH 07:48
PROVIDERS: ATTEND Internal Medicine
DX: R18.8 Other ascites (principal); K74.60 Unspecified cirrhosis of liver; M19.90 Unspecified osteoarthritis, unspecified site; I12.0 Hypertensive chronic kidney disease with stage 5 chronic kidney disease or end stage renal disease; E11.22 Type 2 diabetes mellitus with diabetic chronic kidney disease; N18.9 Chronic kidney disease, unspecified; R63.4 Abnormal weight loss; R68.81 Early satiety; K92.1 Melena; I85.10 Secondary esophageal varices without bleeding; K76.82 Hepatic encephalopathy; K65.2 Spontaneous bacterial peritonitis; K21.00 Gastro-esophageal reflux disease with esophagitis, without bleeding; Z90.49 Acquired absence of other specified parts of digestive tract; Z86.16 Personal history of COVID-19; Z88.0 Allergy status to penicillin; Z79.899 Other long term (current) drug therapy; Z98.890 Other specified postprocedural states
CPT/HCPCS: 49083; 84157; 89051; 87071; 87076; 87205; 82042; 88305; 88112; C1729; 96365

== ENCOUNTER → 2024-04-23 | Outpatient (CLI) | payer OTHER ==
[~2024-04-23] VITALS: Ht 167.6 cm; Wt 65.8 kg
[~2024-04-23] MED LIST changes: +ALBUMIN HUMAN 25% 200 ML IV ONE
--- NOTE | 2024-04-23 11:42 | HMCIMG ---
NM GASTRIC EMPTYING STUDY REASON: EARLY SATIETY COMPARISON: None TECHNIQUE: Routine imaging protocol was performed following ingestion of 1.5 mCi technetium 99m soft colloid mixed with 2 scrambled eggs. FINDINGS: Time activity curve yields a T1 half of 81 minutes, this is within normal limits, upper limit of normal is 90 minutes. There was no reflux during the exam. IMPRESSION: 1. Normal gastric emptying exam, the T1 half was 81 minutes.
== END | disposition home or self-care (01) ==
LOC: RAH 07:00
PROVIDERS: ATTEND Internal Medicine Gastroenterology
DX: R68.81 Early satiety (principal)
CPT/HCPCS: 78264; P9046; A9541

== ENCOUNTER 2024-05-06 10:47 | Observation (INO) | payer OTHER ==
[~2024-05-06] VITALS: Ht 167.6 cm; Wt 61.0 kg
[~2024-05-06 10:47] MED LIST changes: -ALBUMIN HUMAN 25% 200 ML IV ONE; -APIX2.5T PO
[2024-05-06 11:42] LABS: BASOPHILS # (AUTO) 0.02 K/uL (0.00-0.20); BASOPHILS % (AUTO) 0.5 % (0.0-5.0); EOSINOPHILS # (AUTO) 0.06 K/uL (0.00-0.70); EOSINOPHILS % (AUTO) 1.6 % (0.0-8.0); HEMATOCRIT 28.2 % (42-54); IMMATURE GRANULOCYTE ABSOLUTE 0.03 K/uL (0-1); LYMPHOCYTES # (AUTO) 0.7 K/uL (1.0-4.8); LYMPHOCYTES % (AUTO) 17.8 % (21.0-51.0); MEAN CORPUSCULAR HEMOGLOBIN 28.7 pg (27.0-33.0); MEAN CORPUSCULAR HGB CONC 34.8 g/dL (32.0-36.0); MEAN CORPUSCULAR VOLUME 82.5 fL (79-99); MONOCYTES # (AUTO) 0.3 K/uL (0.1-1.0); NEUTROPHILS # (AUTO) 2.6 K/uL (1.8-7.7); NEUTROPHILS % (AUTO) 70.3 % (40.0-77.0); PLATELET COUNT (AUTO) 107 K/uL (130-400); RED BLOOD CELL COUNT(AUTO) 3.42 MIL/uL (4.50-6.20); RED CELL DISTRIBUTION WIDTH 14.9 % (11.0-15.5); WHITE BLOOD COUNT (AUTO) 3.7 K/uL (4.8-10.8)
--- NOTE | 2024-05-06 12:00 | EKG ---
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
[2024-05-06 12:01] LABS: ALBUMIN 3.9 g/dL (3.5-5.0); BILIRUBIN,DIRECT 0.9 mg/dL (0.0-0.3); CREATININE 2.4 mg/dL (0.5-1.3); TOTAL PROTEIN, SERUM 7.1 g/dL (6.0-8.3)
[2024-05-06 12:03] LABS: POTASSIUM 2.7 mmol/L (3.5-5.1)
--- NOTE | 2024-05-06 12:07 | ERN ---
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 As per family patient was getting out patient paracentesis performed at the hospital this morning and states that lab work showed he had low potassium and was told to come to the ER. Patient denies any abdominal pain or any other associated symptoms at this time. Allergies: Coded Allergies: Penicillins (Unverified Allergy, Severe, SWELLING TO FACE AND HANDS AND TINGLING TO HANDS, 12/31/12) Home Meds Reported Medications Escitalopram Oxalate (Escitalopram Oxalate) 5 Mg Tablet, 1 TAB PO HS for 30 Days, #30 TAB 0 Refills 03/31/24 [Melatonin] No Conflict Check, 12 MG PO HS 03/31/24 Spironolactone (Aldactone) 50 Mg Tablet, 1 TAB PO DAILY for 30 Days, #30 TAB 0 Refills 03/31/24 Memantine HCl (Memantine HCl) 10 Mg Tablet, 1 TAB PO HS for 30 Days, #30 TAB 0 Refills 03/31/24 Atorvastatin Calcium (LIPITOR) 20 Mg Tab, 20 MG PO HS, TAB 12/09/23 Iron Fum & Ps Cmp/Vit C & B (Integra Capsule) 125 Mg-40 Mg-3 Mg Capsule, 1 EACH PO AM, CAP 12/09/23 Furosemide (Furosemide) 40 Mg Tablet, 40 MG PO AM, TAB 12/09/23 Pantoprazole Sodium (Pantoprazole Sodium) 40 Mg Tablet.dr, 40 MG PO BID, TAB 10/09/23 Apixaban (Eliquis) 5 Mg Tablet, 5 MG PO BID, TAB 03/30/22 Past Medical History Past Medical History: Diabetes-Type II, Hypertension, Liver Disease, Other Additional Past Medical Hx: CIRRHOSIS OF LIVER; ASCITES Surgical History: Cholecystectomy, CABG Surgical History Other: OPEN HEART SX (05/2021) Family History: HTN Social History: Negative, Lives with family Review of System Dictation Constitutional: Negative for fever,chills, and weight loss Eyes: Negative for injury, pain,redness, and discharge ENT: Negative for injury,pain or swelling Cardiovascular: Negative for chest pain, palpitations, and edema Respiratory: Negative for shortness of breath, cough, and wheezing, Abdomen/GI: Negative for abdominal pain, nausea, vomiting, diarrhea, and constipation Back: Negative for injury and pain : Negative for injury, bleeding and discharge MS/Extremity: Negative for injury and deformity Skin: Negative for rash, and discoloration Neuro: Negative for headache, weakness, numbness, tingling, and seizure Psych: Negative for suicide ideation, homicidal ideation, and hallucinations Initial Vital Sign VS Vital Signs Date Time Temp Pulse Resp B/P (MAP) Pulse Ox O2 Delivery O2 Flow Rate FiO2 05/06/24 11:26 98.6 71 18 116/73 97 05/06/24 12:05 Room Air* 0 21 Physical Exam Dictation General: awake, alert, NAD, chronically ill Head/Face: Normocephalic, atraumatic Eyes: PERRL, EOMI, vision at baseline ENT: oral cavity clear, TMs clear, no signs of infection Neck: Trachea midline, supple, no nuchal rigidity Cardiovascular: RRR, normal S1/S2, No MRGs, no JVD Respiratory: CTAB, no respiratory distress, No rales or wheezes Abdomen: Soft, non-tender, non-distended, normal bowel sounds, no guarding or rebound. Skin: Warm, dry, normal turgor, no rash MS/Extremity: Pulses equal, no cyanosis, neurovascular intact, FROM Neuro: COAx4, GCS 15, strength 5/5, CN 2-12 intact, normal cerebellar exam, normal gait, Psych: Normal behavior, mood, and affect normal Results (Laboratory/Radiology) Laboratory/Radiology Laboratory Tests Test 05/06/24 11:37 White Blood Count 3.7 K/uL (4.8-10.8) #L Red Blood Count 3.42 MIL/uL (4.50-6.20) L Hemoglobin 9.8 g/dL (14.0-18.0) L Hematocrit 28.2 % (42-54) L Mean Corpuscular Volume 82.5 fL (79-99) Mean Corpuscular Hemoglobin 28.7 pg (27.0-33.0) Mean Corpuscular Hemoglobin Concent 34.8 g/dL (32.0-36.0) Red Cell Distribution Width 14.9 % (11.0-15.5) Platelet Count 107 K/uL (130-400) #L Mean Platelet Volume 10.0 fL (7.5-10.5) Immature Granulocyte % (Auto) 0.8 % (0-1) Neutrophils (%) (Auto) 70.3 % (40.0-77.0) Lymphocytes (%) (Auto) 17.8 % (21.0-51.0) L Monocytes (%) (Auto) 9.0 % (3.0-13.0) Eosinophils (%) (Auto) 1.6 % (0.0-8.0) Basophils (%) (Auto) 0.5 % (0.0-5.0) Neutrophils # (Auto) 2.6 K/uL (1.8-7.7) Lymphocytes # (Auto) 0.7 K/uL (1.0-4.8) L Monocytes # (Auto) 0.3 K/uL (0.1-1.0) Eosinophils # (Auto) 0.06 K/uL (0.00-0.70) Basophils # (Auto) 0.02 K/uL (0.00-0.20) Absolute Immature Granulocyte (auto 0.03 K/uL (0-1) Nucleated Red Blood Cells 0.0 % (0.0-0.19) Sodium Level 132 mmol/L (136-145) L Potassium Level 2.7 mmol/L (3.5-5.1) *L Chloride Level 96 mmol/L (101-111) L Carbon Dioxide Level 27 mmol/L (21-32) Blood Urea Nitrogen 24 mg/dL (7-18) H Creatinine 2.4 mg/dL (0.5-1.3) H Glomerular Filtration Rate Calc 28 mL/min (>90) Random Glucose 117 mg/dL (70-105) H Total Calcium 8.6 mg/dL (8.5-10.1) Magnesium Level 1.90 mg/dL (1.80-2.40) Total Bilirubin 2.0 mg/dL (0.2-1.0) #H Direct Bilirubin 0.9 mg/dL (0.0-0.3) H Aspartate Amino Transf (AST/SGOT) 19 U/L (10-37) Alanine Aminotransferase (ALT/SGPT) 17 U/L (12-78) Alkaline Phosphatase 114 U/L (50-136) Troponin I High Sensitivity 18 ng/L (4-75) Total Protein 7.1 g/dL (6.0-8.3) Albumin 3.9 g/dL (3.5-5.0) # Labs Reviewed?: Yes EKG Comment: EKG 05/06/2024 time 11:58 a.m. ventricular rate 67, sinus rhythm, UT 127, QRS D 99, QT 510, QTCB 538. Prolonged QT interval. No STEMI CT Scan Comment: REASON: dizzy ORDERING PHYSICIAN: AD BLUM MD PROCEDURE: HEAD WO - CT HEAD/BRAIN W/O CONTRAST Exam: NONCONTRAST CT BRAIN REASON: dizzy. COMPARISON: None. TECHNIQUE: Images are obtained from vertex to the skull base. The exam was performed without IV contrast. FINDINGS: There are generous ventricles and sulci. There is decreased attenuation in the deep central white matter. These findings are consistent with atrophy. There are no acute appearing focal parenchymal lesions. There is no evidence of mass, intracranial hemorrhage or acute stroke. Posterior fossa and brainstem structures appear unremarkable. There are no abnormal fluid collections. Extra cranial soft tissues appear unremarkable as well. IMPRESSION: 1. Atrophy, no acute finding. CT was performed with one or more following dose reduction techniques: automated exposure control, adjustment of the mA and kv according to patient's size, or use of a iterative reconstruction technique. DICTATED BY: YENNI PIERCE MD DATE: 05/06/24 1218 ED Course ED Course Orders Procedure Category Date Status Time 12 Lead Ekg Tracing- EKG 05/06/24 Complete Technical 11:20 Basic Metabolic Panel LAB 05/06/24 Complete 11:20 Cbc With Differential LAB 05/06/24 Complete 11:20 Hepatic Function Panel LAB 05/06/24 Complete 11:20 Troponin I High LAB 05/06/24 Complete Sensitivity 11:20 Ct Head/Brain W/O CT 05/06/24 Resulted Contrast 11:20 Magnesium LAB 05/06/24 Complete 12:04 Initiate Npo BETITO 05/06/24 In Process Hypokalemia Diann 12:05 Potassium Chloride PHA 05/06/24 In Process 20meq/100ml ([place] 12:30 Notify Physician If CPOE 05/06/24 Transmitted There Is 12:05 Notify Md On The Next CPOE 05/06/24 Transmitted 12:05 Notify Md On The CPOE 05/06/24 Transmitted Next(Cont.) 12:05 Magnesium 2gm Premix PHA 05/06/24 Complete 50ml (Magnesium 2gm 12:30 Edm Admit Bridge Order ADM 05/06/24 Transmitted 14:21 Vital Signs(Adult CPOE 05/06/24 Transmitted Hospitalist) 14:38 Daily Weights CPOE 05/06/24 Transmitted 14:38 I&O Q Shift CPOE 05/06/24 Transmitted 14:38 Famotidine 20mg Tab PHA 05/06/24 In Process (Pepcid 20mg Tab) 21:00 Acetaminophen 325 Tab PHA 05/06/24 In Process (Tylenol 325mg Tab 15:00 Acetaminophen 325 Tab PHA 05/06/24 In Process (Tylenol 325mg Tab 15:00 Ondansetron 4mg Inj PHA 05/06/24 In Process (Zofran 4mg Inj) 15:00 Nitroglycerin 0.4mg PHA 05/06/24 In Process Sl Tab (Nitrostat) 15:00 Case Management CM 05/06/24 Transmitted Evaluation 14:38 Docusate Sodium 100 PHA 05/06/24 In Process Mg Cap (Colace 100mg 15:00 Polyethylene Glycol PHA 05/06/24 In Process 3350 (Miralax 3350 1 15:00 Admit Orders ADM 05/06/24 Transmitted 14:38 Activity: Br W/Brp CPOE 05/06/24 Transmitted With Assist 14:38 Heart Healthy Diet DIET 05/06/24 Transmitted Dinner Initiate BETITO 05/06/24 In Process Hyperglycemia Protoco 14:38 Insulin Regular, PHA 05/06/24 In Process Human 3ml (Humulin R 16:30 Pt Eval And Treat PT 05/06/24 Transmitted 14:38 Chest 1vw RAD 05/06/24 Logged 14:41 Urinalysis LAB 05/06/24 Logged W/Microscopic 14:44 Blood Cult TOMASZ 05/06/24 Logged 14:44 Basic Metabolic Panel LAB 05/07/24 Verified 04:00 Cbc With Differential LAB 05/07/24 Verified 04:00 Heparin 5,000 Unit PHA 05/06/24 In Process Vial (Heparin 5,000 U 15:00 Current Medications Medications (Trade) Dose Ordered Sig/Karmen Route PRN Reason Start Time Stop Time Status Last Admin Dose Admin Acetaminophen (TYLenol 325MG TAB) 650 mg Q4H PRN PO MILD PAIN (1-3) 05/06/24 15:00 06/05/24 14:59 Acetaminophen (TYLenol 325MG TAB) 650 mg Q6H PRN PO TEMPERATURE GREATER THAN 101.5 05/06/24 15:00 06/05/24 14:59 Docusate Sodium (COLace 100MG CAP) 100 mg BID PRN PO CONSTIPATION 05/06/24 15:00 06/05/24 14:59 Famotidine (Pepcid 20mg Tab) 20 mg BID PO 05/06/24 21:00 06/05/24 20:59 Heparin Sodium (Porcine) (HEParin 5,000 UNIT VIAL) 5,000 unit Q12H SQ 05/06/24 15:00 06/05/24 14:59 Insulin Human Regular (humuLIN R 100 UNIT/ML 3ML) INSULIN SLIDING SCAL... ACHS SQ 05/06/24 16:30 06/05/24 16:29 Magnesium Sulfate 50 ml @ 0 mls/hr PROTOCOL ONCE IV 05/06/24 12:30 05/06/24 12:31 DC 05/06/24 14:07 Nitroglycerin (Nitrostat) 0.4 mg PROTOCOL PRN SL CHEST PAIN 05/06/24 15:00 06/05/24 14:59 Ondansetron HCl (zoFRAN 4MG INJ) 4 mg Q6H PRN IV NAUSEA/VOMITING 05/06/24 15:00 06/05/24 14:59 Polyethylene Glycol (MIRalax 3350 17 GM POWD.PACK) 17 gm DAILY PRN PO CONSTIPATION 05/06/24 15:00 06/05/24 14:59 Potassium Chloride 100 ml @ 50 mls/hr AD PRN IV POTASSIUM PROTOCOL 05/06/24 12:30 06/05/24 12:29 05/06/24 12:57 Vital Signs Date Time Temp Pulse Resp B/P (MAP) Pulse Ox O2 Delivery O2 Flow Rate FiO2 05/06/24 13:07 98.8 65 20 117/64 100 Room Air* 0 05/06/24 12:05 98.8 66 20 124/88 100 Room Air* 0 05/06/24 11:26 98.6 71 18 116/73 97 HEART Score Response (Comments) Value History: Low suspicion (0) 0 EKG: Normal 0 Age: > 65yrs (+2) 2 Risk Factors: 1-2 risk factors (+1) 1 Initial Troponin: Normal limit (0) 0 HEART Score Risk: Low Risk for MACE (1-3) Total 3 Medical Decision Making MDM MDM: Differential diagnosis: Hypokalemia, prolonged QT 1421-[facility] consult, accepts patient for admission Rationale: Tests considered and ordered secondary to shared decision making include: labs, ECG and radiology Previous outside records reviewed: Old ER visits. Risk of complication and/or morbidity or mortality of patient management: None Medications-Per medication reconciliation Need for hospitalization: Patient does meet criteria for hospitalization. Need for emergency major/minor surgery: No There are no social concerns with this patient. Patient's prior external medical records from other ER visits were reviewed by me as indicated. Prior testing and results from previous visits were reviewed. Prior tests were taken into account with medical decision making and resource utilization, independent historian/historians were used to obtain complete medical history. I independently interpreted the test that were performed, results were reviewed by me and considered findings on radiology if ordered. Medical management and examination interpretation discussions were had by me with other qualified healthcare professionals as indicated for the patient's care. Critical Care Note Critical Time: other (Total critical care time was 33 minutes. Excluding time for procedures. Management of critically ill patient with concern for acute decompensation. Management included interpretation of laboratory values and imaging, hemodynamics, time for consultation with consultants and admitting physician.) DX & DISP Disposition: Inpatient Decision to Admit Date: May 06, 2024 Decision to Admit Time: 14:22 Departure Impression: Primary Impression: Hypokalemia Additional Impression: Prolonged QT interval Condition: Stable Referrals: GUERO BURTON M.D. (PCP) I have reviewed, & agreed with my scribe's, documentation. (Entered by Cristofer Ruelas, acting as a scribe for Dr. Blum) I personally scribed for AD BLUM MD ([email or web address]) on 05/06/24 at 1 2:06. Electronically submitted by Cristofer Ruelas ([email or web address]). I personally scribed for AD BLUM MD ([email or web address]) on 05/06/24 at 13:34. Electronically submitted by Cristofer Ruelas ([email or web address]). I personally scribed for AD BLUM MD ([email or web address]) on 05/06/24 at 13:39. Electronically submitted by Cristofer Ruelas ([email or web address]). AD BLUM MD May 06, 2024 12:06
--- NOTE | 2024-05-06 12:21 | HMCIMG ---
Exam: NONCONTRAST CT BRAIN REASON: dizzy. COMPARISON: None. TECHNIQUE: Images are obtained from vertex to the skull base. The exam was performed without IV contrast. FINDINGS: There are generous ventricles and sulci. There is decreased attenuation in the deep central white matter. These findings are consistent with atrophy. There are no acute appearing focal parenchymal lesions. There is no evidence of mass, intracranial hemorrhage or acute stroke. Posterior fossa and brainstem structures appear unremarkable. There are no abnormal fluid collections. Extra cranial soft tissues appear unremarkable as well. IMPRESSION: 1. Atrophy, no acute finding. CT was performed with one or more following dose reduction techniques: automated exposure control, adjustment of the mA and kv according to patient's size, or use of a iterative reconstruction technique.
[2024-05-06] MEDS: PoTASSium chloRIDE 20MEQ/100ML 100 ML IV PRN (12:57)
[2024-05-06] MEDS: MAGNESIUM 2GM PREMIX 50ML 50 ML IV ONE (14:07)
[2024-05-06] MEDS ORDERED: acetaMINOPHEN 325 MG TAB PO PRN ×2 (15:00)
[2024-05-06] MEDS ORDERED: ondanSETRON 4MG INJ IV PRN (15:00)
[2024-05-06] MEDS ORDERED: doCUSate SODIUM 100 MG CAP PO PRN (15:00)
[2024-05-06] MEDS ORDERED: polyETHYLene GLYCol 3350 17 GM POWD.PACK PO PRN (15:00)
[2024-05-06] MEDS ORDERED: NITROGLYCERIN 0.4 MG SL TAB SL PRN (15:00)
[2024-05-06] MEDS: HEParin 5,000 UNIT VIAL SQ SCH (15:21)
--- NOTE | 2024-05-06 16:10 | HMCIMG ---
CHEST 1VW REASON: admission, THELMA COMPARISON: 03/25/2024 FINDINGS: Single view of the chest was obtained. Lungs are clear. Heart size is normal. There is no pulmonary vascular congestion. Mediastinum and bony thorax appear unremarkable. There is been a previous median sternotomy. IMPRESSION: 1. No acute finding, no change.
--- NOTE | 2024-05-06 16:52 | NUR ---
NO HOME MEDICATIONS BROUGHT IN AT THIS TIME, PER SHE WILL BRING THEM IN AT A LATER TIME
--- NOTE | 2024-05-06 17:05 | NUR ---
REPORT CALLED NURSE NOT AVAILABLE AT THIS TIME, WILL CALL BACK
--- NOTE | 2024-05-06 17:10 | HP ---
[facility] HISTORY & PHYSICAL Date Patient Seen: May 06, 2024 Time of Visit: 2100 Supervising Physician: [Dr. Vicki Adame] Primary Care Physician: [Dr. Bety Kumar ] Outpatient Specialists: [ ] Inpatient Consults: [ ] PROBLEM LIST: Acute hypokalemia-POA Large volume ascites-POA, status post paracentesis equals 6.5 L Pancytopenia-POA Hyponatremia-POA Hyperbilirubinemia-POA THELMA on CKD 3-POA HLD Primary HTN Liver cirrhosis T2DM CAD s/p CABG Dementia Mood disorder PLAN: -Admit to [facility] telemetry -Continue to monitor electrolytes, manage appropriately -patient just completed paracentesis prior to admission which the patient claims he was drained 6.5 L. His doing it every 2 weeks -Bleeding precaution -multimodal pain management p.r.n. -pending abdominal ultrasound result HPI: [Patient is a 74-year-old male with PMH significant for HTN, dementia, liver cirrhosis, ascites, T2 DM, HTN and prior CABG who was presented to the ED concerning acute hypokalemia. 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 At the ED, it was rechecked and showed 2.7 and was replaced with 40 mEq Solu sets. Patient denies other constitutional symptoms. Physical assessment was unrevealing except for right upper quadrant tenderness, abdomen soft without signs of ischemia or peritonitis. RUQ ultrasound pending report. Goals of care were discussed with the patient verbalizes understanding and agreement. PAST MEDICAL HX: see above PAST SURGICAL HX: noncontributory SOCIAL HISTORY: No tobacco, ETOH, or illicit drug use Coded Allergies: Penicillins (Unverified Allergy, Severe, SWELLING TO FACE AND HANDS AND TINGLING TO HANDS, 12/31/12) REVIEW OF SYSTEMS: 12 point ROS reviewed with patient. Pertinent positives mentioned above. Otherwise negative. PHYSICAL EXAM: GENERAL: alert, weak, awake oriented x 3 HEENT: EOMI, Sclera non icteric, dry mucosa NECK: Supple, no JVD, trachea midline LUNGS: Clear breath sounds bilaterally. No wheezes HEART: Regular rate and rhythm. Normal S1 and S2, without murmurs ABD: Abdomen soft, RUQ tender. Bowel sounds present EXT: No clubbing cyanosis or edema NEURO: Alert and oriented to person, follows commands Vital Signs (last 8hr) Date Time Temp Pulse Resp B/P (MAP) Pulse Ox O2 Delivery O2 Flow Rate FiO2 05/06/24 16:59 98.8 78 15 107/58 100 Room Air* 0 05/06/24 15:22 98.8 63 20 101/62 100 Room Air* 0 21 05/06/24 13:07 98.8 65 20 117/64 100 Room Air* 0 05/06/24 12:05 98.8 66 20 124/88 100 Room Air* 0 05/06/24 11:26 98.6 71 18 116/73 97 LABS: Hematology Labs: Test 05/06/24 11:37 Range/Units White Blood Count 3.7 #L 4.8-10.8 K/uL Red Blood Count 3.42 L 4.50-6.20 MIL/uL Hemoglobin 9.8 L 14.0-18.0 g/dL Hematocrit 28.2 L 42-54 % Mean Corpuscular Volume 82.5 79-99 fL Mean Corpuscular Hemoglobin 28.7 27.0-33.0 pg Mean Corpuscular Hemoglobin Concent 34.8 32.0-36.0 g/dL Red Cell Distribution Width 14.9 11.0-15.5 % Platelet Count 107 #L 130-400 K/uL Mean Platelet Volume 10.0 7.5-10.5 fL Immature Granulocyte % (Auto) 0.8 0-1 % Neutrophils (%) (Auto) 70.3 40.0-77.0 % Lymphocytes (%) (Auto) 17.8 L 21.0-51.0 % Monocytes (%) (Auto) 9.0 3.0-13.0 % Eosinophils (%) (Auto) 1.6 0.0-8.0 % Basophils (%) (Auto) 0.5 0.0-5.0 % Neutrophils # (Auto) 2.6 1.8-7.7 K/uL Lymphocytes # (Auto) 0.7 L 1.0-4.8 K/uL Monocytes # (Auto) 0.3 0.1-1.0 K/uL Eosinophils # (Auto) 0.06 0.00-0.70 K/uL Basophils # (Auto) 0.02 0.00-0.20 K/uL Absolute Immature Granulocyte (auto 0.03 0-1 K/uL Nucleated Red Blood Cells 0.0 0.0-0.19 % Chemistry Labs: Test 05/06/24 11:37 Range/Units Sodium Level 132 L 136-145 mmol/L Potassium Level 2.7 *L 3.5-5.1 mmol/L Chloride Level 96 L 101-111 mmol/L Carbon Dioxide Level 27 21-32 mmol/L Blood Urea Nitrogen 24 H 7-18 mg/dL Creatinine 2.4 H 0.5-1.3 mg/dL Glomerular Filtration Rate Calc 28 >90 mL/min Random Glucose 117 H 70-105 mg/dL Total Calcium 8.6 8.5-10.1 mg/dL Magnesium Level 1.90 1.80-2.40 mg/dL Total Bilirubin 2.0 #H 0.2-1.0 mg/dL Direct Bilirubin 0.9 H 0.0-0.3 mg/dL Aspartate Amino Transf (AST/SGOT) 19 10-37 U/L Alanine Aminotransferase (ALT/SGPT) 17 12-78 U/L Alkaline Phosphatase 114 50-136 U/L Troponin I High Sensitivity 18 4-75 ng/L Total Protein 7.1 6.0-8.3 g/dL Albumin 3.9 # 3.5-5.0 g/dL DIAGNOSTICS / RADIOLOGY RESULTS: [ ] PLAN NEURO: Minimize central acting medications as possible. Maintain fall precautions, adequate lighting during the day PULMONARY: Supplemental 02 as needed. Maintain aspiration precautions at all times CARDIOVASCULAR: Follow hemodynamics. Vital signs per facility protocol GI & NUTRITION: Continue with nutritional support. Continue stool softeners and laxatives as needed. KIDNEYS & ELECTROLYTES: Strict monitoring of intake, output and overall fluid balance. Avoid nephrotoxic medications to the extent possible. Medications to be dosed according to renal function. Monitor electrolytes and replace as needed ENDOCRINE: Maintain blood glucose between 100-180 at all times. Hypoglycemia protocol in place INFECTIOUS DISEASE: Trend temperature, WBC and procalcitonin level Follow cultures, deescalate antibiotics as soon as possible. Panculture if new onset fever ONCOLOGY/HEMATOLOGY/COAGULATION: Monitor for s/s of bleeding Monitor hemoglobin, coagulation studies as needed SKIN: Pressure ulcer prevention per facility protocol Specialty mattress ORTHO/REHAB: Continue PT/OT Prophylaxis: Continue GI and DVT prophylaxis Code Status: Full Resuscitation Disposition: TBD Other: Total patient care time: 35 minutes KIANA ROWLEY AGPCNP May 06, 2024 17:10
--- NOTE | 2024-05-06 17:30 | NUR ---
RECEIVED REPORT FROM ARIN ESCOTO-ER. PT WILL BE TRANSFERRING TO ROOM 314.
[2024-05-06 17:50] VITALS: BP 97/64; PULSE 81; RESP 19
--- NOTE | 2024-05-06 17:50 | NUR ---
PT IN ROOM 314 PT IS WHEELED INTO THE ROOM WITH SPOUSE AT SIDE. 20G RAC, 22G LW, SL. PT DENIES NO PAIN OR DISCOMFORT. SKIN INTACT, VS STABLE, NO 02 IN PLACED. BED LOW AND LOCKED, SIDERAILSX2 UP, CALL LIGHT WITHIN REACH. PT IS THEN AMBULATED TO RESTROOM WITH ASSISTANCE TO TRY TO HAVE A BM. MADE SPOUSE AWARE TO CALL WHEN READY TO GO BACK TO BED. WILL CONTINUE TO MONITOR. Addendum: 05/06/24 at 2118 by LORAINE DAWN LVN LVN SKIN TEAR COVERED WITH COBAND AND GAUZE TO LEFT ELBOW, PT STATED HE HIT HIMSELF AND STARTED BLEEDING SO IT WAS PLACED BY A EMPLOYEE ON FIRST FLOOR .
[2024-05-06 19:00] VITALS: BP 108/67; PULSE 74; RESP 19; TEMP 98.2
[2024-05-06 19:45] VITALS: O2SAT 100
[2024-05-06 21:10] LABS: INR 1.13 (0.85-1.15); PROTHROMBIN TIME 12.1 SEC (9.6-11.6)
[2024-05-06 21:11] LABS: PARTIAL THROMBOPLASTIN TIME 34.7 SEC (26.3-35.5)
[2024-05-06] MEDS: FAMOTIDINE 20MG TAB PO SCH (21:23)
[2024-05-06] MEDS: INSULIN humuLIN R 100 UNIT/ML 3ML SQ SCH (21:25)
[2024-05-06] MEDS ORDERED: PoTASSium chl 10% ELIXIR 20MEQ 20 MEQ/15 ML UDCUP PO PRN (22:30)
[2024-05-06 23:00] VITALS: BP 102/63; PULSE 71; RESP 19; TEMP 98.2
[2024-05-07] VITALS (8 sets, daily range): BP systolic 109–118; BP diastolic 64–74; PULSE 67–96; RESP 19–20; TEMP 98–98.6; O2SAT 93–100
[2024-05-07 04:43] LABS: BASOPHILS # (AUTO) 0.03 K/uL (0.00-0.20); BASOPHILS % (AUTO) 0.7 % (0.0-5.0); EOSINOPHILS # (AUTO) 0.06 K/uL (0.00-0.70); EOSINOPHILS % (AUTO) 1.3 % (0.0-8.0); HEMATOCRIT 25.7 % (42-54); IMMATURE GRANULOCYTE ABSOLUTE 0.03 K/uL (0-1); LYMPHOCYTES # (AUTO) 0.9 K/uL (1.0-4.8); MEAN CORPUSCULAR HEMOGLOBIN 28.1 pg (27.0-33.0); MEAN CORPUSCULAR HGB CONC 33.9 g/dL (32.0-36.0); MEAN CORPUSCULAR VOLUME 82.9 fL (79-99); MONOCYTES # (AUTO) 0.5 K/uL (0.1-1.0); MONOCYTES % (AUTO) 10.7 % (3.0-13.0); NEUTROPHILS % (AUTO) 67.6 % (40.0-77.0); PLATELET COUNT (AUTO) 121 K/uL (130-400); RED CELL DISTRIBUTION WIDTH 14.9 % (11.0-15.5); WHITE BLOOD COUNT (AUTO) 4.5 K/uL (4.8-10.8)
[2024-05-07 04:58] LABS: CREATININE 2.2 mg/dL (0.5-1.3); POTASSIUM 3.1 mmol/L (3.5-5.1)
[2024-05-07] MEDS: PoTASSium chloRIDE 20MEQ ER 20 MEQ ERTAB PO PRN (06:49)
--- NOTE | 2024-05-07 10:14 | HMCIMG ---
ULTRASOUND ABDOMEN LIMITED INDICATION: Hyperbilirubinemia COMPARISON: None FINDINGS: The liver is normal in size and coarse in echotexture; no focal lesion demonstrated. The common bile duct diameter measures 4.0 mm. Gallbladder is surgically absent. Pancreas is obscured by overlying bowel gas. The right kidney measures 10.5 x 5.2 x 4.4 cm,and is normal in echogenicity, without evidence for hydronephrosis.No shadowing stones demonstrated. No free fluid demonstrated. Small amount of free fluid demonstrated within all four quadrants of the abdomen. IMPRESSION: Limitations as reported. Cirrhotic or other underlying liver disease and small-volume abdominopelvic ascites.
--- NOTE | 2024-05-07 10:27 | PN ---
[facility] PROGRESS NOTE Date Patient Seen: May 07, 2024 Time of Visit: 10:13 Supervising Physician: [Dr. Adame] Primary Care Physician: [Dr. 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 His doing it every 2 weeks -Bleeding precaution -multimodal pain management p.r.n. -pending abdominal ultrasound result INTERVAL HISTORY: [Patient was admitted for management of hypokalemia. He has scheduled paracentesis outpatient every two weeks. His potassium on admission was 2.7, now improved to 3.1. Continues with potassium replacement. He did have 6.5 L of ascitic fluid removed. Labs on admission show a WBC of 3, hemoglobin 9, platelets 107. BNP shows hyponatremia at 132, hypokalemia 2.7 And elevated creatinine of 2.4. His troponin was 18. LFTs within normal limits. His ammonia level is 22, bilirubin 2.0. Albumin is 3.9. Patient feels well, without current complaints. Continues with potassium replacement. Medications reviewed with patient at bedside, can not recall what he is taking or what it is for this is. Does have Eliquis which she confirms he is taking but does not know why. Patient also found with spironolactone, unknown if he was taking appropriately with low potassium levels. He is pending an abdominal ultrasound. ] REVIEW OF SYSTEMS: 12 point ROS reviewed with patient. Pertinent positives mentioned above. O therwise negative. PHYSICAL EXAM: GENERAL: alert, weak, awake oriented x 3 HEENT: EOMI, Sclera non icteric, dry mucosa NECK: Supple, no JVD, trachea midline LUNGS: Clear breath sounds bilaterally. No wheezes HEART: Regular rate and rhythm. Normal S1 and S2, without murmurs ABD: Abdomen soft, RUQ tender. Bowel sounds present EXT: No clubbing cyanosis or edema NEURO: Alert and oriented to person, follows commands Vital Signs (last 8hr) Date Time Temp Pulse Resp B/P (MAP) Pulse Ox O2 Delivery O2 Flow Rate FiO2 05/07/24 08:00 98.2 80 19 116/74 93 Room Air 05/07/24 04:00 98.4 81 19 109/64 100 Room Air LABS: Hematology Labs: Test 05/07/24 04:26 Range/Units White Blood Count 4.5 L 4.8-10.8 K/uL Red Blood Count 3.10 L 4.50-6.20 MIL/uL Hemoglobin 8.7 L 14.0-18.0 g/dL Hematocrit 25.7 L 42-54 % Mean Corpuscular Volume 82.9 79-99 fL Mean Corpuscular Hemoglobin 28.1 27.0-33.0 pg Mean Corpuscular Hemoglobin Concent 33.9 32.0-36.0 g/dL Red Cell Distribution Width 14.9 11.0-15.5 % Platelet Count 121 L 130-400 K/uL Mean Platelet Volume 10.5 7.5-10.5 fL Immature Granulocyte % (Auto) 0.7 0-1 % Neutrophils (%) (Auto) 67.6 40.0-77.0 % Lymphocytes (%) (Auto) 19.0 L 21.0-51.0 % Monocytes (%) (Auto) 10.7 3.0-13.0 % Eosinophils (%) (Auto) 1.3 0.0-8.0 % Basophils (%) (Auto) 0.7 0.0-5.0 % Neutrophils # (Auto) 3.0 1.8-7.7 K/uL Lymphocytes # (Auto) 0.9 L 1.0-4.8 K/uL Monocytes # (Auto) 0.5 0.1-1.0 K/uL Eosinophils # (Auto) 0.06 0.00-0.70 K/uL Basophils # (Auto) 0.03 0.00-0.20 K/uL Absolute Immature Granulocyte (auto 0.03 0-1 K/uL Nucleated Red Blood Cells 0.0 0.0-0.19 % Chemistry Labs: Test 05/07/24 05:25 05/07/24 04:26 05/06/24 20:48 05/06/24 11:37 Range/Units Whole Blood Glucose 95 # 70-110 MG/DL Sodium Level 130 L 136-145 mmol/L Potassium Level 3.1 L 3.5-5.1 mmol/L Chloride Level 98 L 101-111 mmol/L Carbon Dioxide Level 23 21-32 mmol/L Blood Urea Nitrogen 21 H 7-18 mg/dL Creatinine 2.2 H 0.5-1.3 mg/dL Glomerular Filtration Rate Calc 31 >90 mL/min Random Glucose 94 70-105 mg/dL Total Calcium 8.3 L 8.5-10.1 mg/dL Ammonia 22 11-32 umol/L Magnesium Level 1.90 1.80-2.40 mg/dL Total Bilirubin 2.0 #H 0.2-1.0 mg/dL Direct Bilirubin 0.9 H 0.0-0.3 mg/dL Aspartate Amino Transf (AST/SGOT) 19 10-37 U/L Alanine Aminotransferase (ALT/SGPT) 17 12-78 U/L Alkaline Phosphatase 114 50-136 U/L Troponin I High Sensitivity 18 4-75 ng/L Total Protein 7.1 6.0-8.3 g/dL Albumin 3.9 # 3.5-5.0 g/dL Coagulation Labs: Test 05/06/24 20:48 Range/Units Prothrombin Time 12.1 H 9.6-11.6 SEC Prothromb Time International Ratio 1.13 0.85-1.15 Activated Partial Thromboplast Time 34.7 # 26.3-35.5 SEC DIAGNOSTICS / RADIOLOGY RESULTS: [CHEST 1VW REASON: admission, THELMA COMPARISON: 03/25/2024 FINDINGS: Single view of the chest was obtained. Lungs are clear. Heart size is normal. There is no pulmonary vascular congestion. Mediastinum and bony thorax appear unremarkable. There is been a previous median sternotomy. IMPRESSION: 1. No acute finding, no change.] PLAN NEURO: Minimize central acting medications as possible. Maintain fall precautions, adequate lighting during the day PULMONARY: Supplemental 02 as needed. Maintain aspiration precautions at all times CARDIOVASCULAR: Follow hemodynamics. Vital signs per facility protocol GI & NUTRITION: Continue with nutritional support. Continue stool softeners and laxatives as needed. KIDNEYS & ELECTROLYTES: Strict monitoring of intake, output and overall fluid balance. Avoid nephrotoxic medications to the extent possible. Medications to be dosed according to renal function. Monitor electrolytes and replace as needed ENDOCRINE: Maintain blood glucose between 100-180 at all times. Hypoglycemia protocol in place INFECTIOUS DISEASE: Trend temperature, WBC and procalcitonin level Follow cultures, deescalate antibiotics as soon as possible. Panculture if new onset fever ONCOLOGY/HEMATOLOGY/COAGULATION: Monitor for s/s of bleeding Monitor hemoglobin, coagulation studies as needed SKIN: Pressure ulcer prevention per facility protocol Specialty mattress ORTHO/REHAB: Continue PT/OT Prophylaxis: Continue GI and DVT prophylaxis Code Status: Full Resuscitation Disposition: TBD Other: Total patient care time: 50 minutes ENRIQUE SOLARES May 07, 2024 10:27
[2024-05-07] MEDS ORDERED: miDODRine HCL 5 MG TABLET PO PRN (10:30)
--- NOTE | 2024-05-07 10:47 | NUR ---
DCP: HOME Pt and Luann Lopez [id number] live in mobile home with 5 steps with rail to enter home. Pt reports he is able to complete his ADLS. Needs a quad cane to ambulate , has a walker with seat, no in home care services. PCP is Gaby Kumar. Discussed dc needs, pt states he will return home at mo. Addendum: 05/07/24 at 1048 by LORIN SCHAFFER Amended: Links added.
[2024-05-07] MEDS: ALBUMIN (HUMAN) 25% 50 ML IV SCH (11:11)
[2024-05-07] MEDS: LACTULOSE 20 GM/30 ML UDCUP PO ONE (13:07)
[2024-05-07] MEDS ORDERED: LORazepam 2 MG/ML 1 ML VIAL IVP PRN (15:00)
--- NOTE | 2024-05-07 15:10 | NUR ---
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 PT STATES HE IS IN THREE [employer] IN A ROOM. PT STATES HE NEEDS TO LEAVE HIS ROOM TO GO LOOK FOR CLOTHES. PT WAS REORIENTED.
[2024-05-07 15:16] LABS: HEMATOCRIT 25.6 % (42-54); MEAN CORPUSCULAR HEMOGLOBIN 28.3 pg (27.0-33.0); MEAN CORPUSCULAR HGB CONC 34.4 g/dL (32.0-36.0); MEAN CORPUSCULAR VOLUME 82.3 fL (79-99); RED BLOOD CELL COUNT(AUTO) 3.11 MIL/uL (4.50-6.20); WHITE BLOOD COUNT (AUTO) 9.2 K/uL (4.8-10.8)
[2024-05-07 15:32] LABS: ABG BASE EXCESS -3.3 mmol/L (-2.0-3.0); ABG HCO3 17.5 mmol/L (21.0-28.0); ABG OXYGEN SATURATION 98.6 % (94.0-98.0); ABG PCO2 23 mmHg (35-48); ABG PH 7.505 (7.350-7.450); DEVICE COMMENT RR; PO2, ARTERIAL BG 114.1 mmHg (83.0-108.0); VENT MODE, BG RA (ROOM AIR)
--- NOTE | 2024-05-07 15:53 | HMCIMG ---
CT HEAD/BRAIN W/O CONTRAST HISTORY: Confusion COMPARISON: None TECHNIQUE: Multiple sequential axial images of the head were obtained from the base of the skull through vertex. Patient was not given contrast through intravenous route. FINDINGS: The ventricles and extraventricular CSF spaces are dilated consistent with cerebral atrophy. Nonspecific white matter changes seen. There is no midline shift, mass effect or herniation. No acute intracranial bleed is seen. Visualized portion of the paranasal sinuses are grossly within normal limits. IMPRESSION: 1. No acute intracranial bleed is seen. 2. Atrophy with white matter changes. CT was performed with one or more following dose reduction techniques: automated exposure control, adjustment of the mA and kv according to patient's size, or use of a iterative reconstruction technique.
[2024-05-07] MEDS ORDERED: RENAL DOSE IV ONE (16:00)
--- NOTE | 2024-05-07 16:50 | NUR ---
PT CONFUSED TRYING TO LEAVE ROOM. TRYING TO REMOVE IV. PT WAS REORIENTED.
[2024-05-07] MEDS: APIXaban 5 MG TABLET PO SCH (20:14)
[2024-05-07] MEDS: MEMANtine HCL 5 MG TABLET PO SCH (20:14)
[2024-05-07] MEDS: atorVAStatin 20 MG TABLET PO SCH (20:14)
[2024-05-07] MEDS: LACTULOSE 20 GM/30 ML UDCUP PO SCH (20:15)
[2024-05-07] MEDS: MELATONIN 12 MG PO SCH (21:00)
[2024-05-07] MEDS: ESCITALOPRAM OXALATE 5 MG PO SCH (21:00)
[2024-05-08 04:00] VITALS: BP 111/76; PULSE 70; RESP 19; TEMP 98.5
[2024-05-08 04:40] LABS: BASOPHILS # (AUTO) 0.03 K/uL (0.00-0.20); BASOPHILS % (AUTO) 0.9 % (0.0-5.0); EOSINOPHILS # (AUTO) 0.07 K/uL (0.00-0.70); EOSINOPHILS % (AUTO) 2.1 % (0.0-8.0); HEMATOCRIT 21.4 % (42-54); IMMATURE GRANULOCYTE ABSOLUTE 0.02 K/uL (0-1); LYMPHOCYTES # (AUTO) 0.7 K/uL (1.0-4.8); LYMPHOCYTES % (AUTO) 21.5 % (21.0-51.0); MEAN CORPUSCULAR HEMOGLOBIN 28.7 pg (27.0-33.0); MEAN CORPUSCULAR HGB CONC 33.6 g/dL (32.0-36.0); MEAN CORPUSCULAR VOLUME 85.3 fL (79-99); MONOCYTES # (AUTO) 0.5 K/uL (0.1-1.0); MONOCYTES % (AUTO) 13.9 % (3.0-13.0); NEUTROPHILS # (AUTO) 2.1 K/uL (1.8-7.7); PLATELET COUNT (AUTO) 84 K/uL (130-400); RED BLOOD CELL COUNT(AUTO) 2.51 MIL/uL (4.50-6.20); RED CELL DISTRIBUTION WIDTH 14.9 % (11.0-15.5); WHITE BLOOD COUNT (AUTO) 3.4 K/uL (4.8-10.8)
[2024-05-08 05:08] LABS: ALBUMIN 2.9 g/dL (3.5-5.0); BILIRUBIN,TOTAL 1.2 mg/dL (0.2-1.0); CREATININE 2.2 mg/dL (0.5-1.3); POTASSIUM 3.7 mmol/L (3.5-5.1); TOTAL PROTEIN, SERUM 5.2 g/dL (6.0-8.3)
[2024-05-08] MEDS ORDERED: PHARMACY COMMUNICATION MISC SCH (07:30)
[2024-05-08 07:58] VITALS: BP 117/69; PULSE 71; RESP 18; TEMP 97.5
[2024-05-08 09:09] VITALS: O2SAT 99
[2024-05-08] MEDS: SPIRONOLACTONE 25 MG TAB PO SCH (09:09)
[2024-05-08] MEDS: furoSEMIDE 20 MG TABLET PO SCH (09:09)
[2024-05-08] MEDS ORDERED: SPIR50TA PO (10:17)
[2024-05-08] MEDS ORDERED: APIX2.5T PO (10:18)
--- NOTE | 2024-05-08 10:19 | DS ---
[facility] DISCHARGE SUMMARY Date Patient Seen: May 08, 2024 Time of Visit: 10:18 Supervising Physician: [Dr. Guillne] Primary Care Physician: [Dr. 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 At the ED, it was rechecked and showed 2.7 and was replaced with 40 mEq Solu sets. Patient denies other constitutional symptoms. Physical assessment was unrevealing except for right upper quadrant tenderness, abdomen soft without signs of ischemia or peritonitis. He denied any nausea, vomiting or diarrhea. His potassium was replaced and improved to 3.7. He was reinitiated on his home medication including lactulose, spironolactone and eliquis. Given large volume paracentesis, patient was given albumin. His ammonia levels remained within normal limits. WBC also WNL. No s/s of infection. Given no other significant findings, patient was discharged in stable condition with his who states she would be able to care for him at home. Patient was alert and oriented X3 and afebrile at time of discharge. CHRONIC PROBLEMS: continue previous management per PCP unless otherwise indicated DISCHARGE MEDICATIONS: Continue medications as listed below. Decrease eliquis to 2.5mg BID given borderline weight of 60kg and liver cirrhosis with thrombocytopenia. Pt hemodynamically stable and afebrile at time of discharge. PCP notified of patients admission, hospital course and discharge. New Medications: Apixaban (Eliquis) 2.5 Mg Tablet 1 TAB PO BID for 30 Days, #60 TAB 0 Refills Changed Medications: Spironolactone (Aldactone) 50 Mg Tablet 1 TAB PO BID for 30 Days, #60 TAB 0 Refills (Changed from: DAILY; 30) Continued Medications: Atorvastatin Calcium (Lipitor) 20 Mg Tab 20 MG PO HS, TAB Escitalopram Oxalate (Escitalopram Oxalate) 5 Mg Tablet 1 TAB PO HS for 30 Days, #30 TAB 0 Refills Furosemide (Furosemide) 40 Mg Tablet 40 MG PO AM, TAB Iron Fum & Ps Cmp/Vit C & B (Integra Capsule) 125 Mg-40 Mg-3 Mg Capsule 1 EACH PO AM, CAP [Melatonin] () 12 MG PO HS Memantine HCl (Memantine HCl) 10 Mg Tablet 1 TAB PO HS for 30 Days, #30 TAB 0 Refills Pantoprazole Sodium (Pantoprazole Sodium) 40 Mg Tablet.dr 40 MG PO BID, TAB Discontinued Medications: Apixaban (Eliquis) 5 Mg Tablet 5 MG PO BID, TAB PHYSICAL EXAM: GENERAL: alert, weak, awake oriented x 3 HEENT: EOMI, Sclera non icteric, dry mucosa NECK: Supple, no JVD, trachea midline LUNGS: Clear breath sounds bilaterally. No wheezes HEART: Regular rate and rhythm. Normal S1 and S2, without murmurs ABD: Abdomen soft, RUQ tender. Bowel sounds present EXT: No clubbing cyanosis or edema NEURO: Alert and oriented to person, follows commands FOLLOW-UP: Follow-up with PCP tomorrow for repeat labs including potassium and creatinine. Decrease eliquis to 2.5mg BID d/t cirrhosis and thrombocytopenia. Continue other medications as prescribed. RECOMMENDATIONS: See Discharge Instructions This case was seen and discussed with my supervising physician. More than 30 minutes spent on discharge process, including evaluation of the patient, discussion with nursing staff, medication reconciliation and follow-up appointments ENRIQUE SOLARES May 08, 2024 10:19
--- NOTE | 2024-05-08 11:30 | NUR ---
DISCHARGE PT PIV DC'D PT AND FAMILY HAD NO FURTHER QUESTIONS AT TIME OF DISCHARGE PT VERBALIZED UNDERSTANDING OF DISCHARGE INSTRUCTIONS PT GATHERED AND TOOK ALL BELONGINGS.
== END 2024-05-08 12:25 | disposition home or self-care (01) ==
LOC: EDH 10:47 → EDHIP 14:38 → 3CH 17:50
PROVIDERS: ADMIT Internal Medicine Critical Care Medicine; ATTEND Internal Medicine Critical Care Medicine
DX: I12.9 Hypertensive chronic kidney disease with stage 1 through stage 4 chronic kidney disease, or unspecified chronic kidney disease (principal); E11.22 Type 2 diabetes mellitus with diabetic chronic kidney disease; N18.30 Chronic kidney disease, stage 3 unspecified; N17.9 Acute kidney failure, unspecified; E78.5 Hyperlipidemia, unspecified; D61.818 Other pancytopenia; E87.1 Hypo-osmolality and hyponatremia; E87.6 Hypokalemia; F03.93 Unspecified dementia, unspecified severity, with mood disturbance; I25.10 Atherosclerotic heart disease of native coronary artery without angina pectoris; K76.7 Hepatorenal syndrome; K74.60 Unspecified cirrhosis of liver; R18.8 Other ascites; R42 Dizziness and giddiness; R20.2 Paresthesia of skin; R94.31 Abnormal electrocardiogram [ECG] [EKG]; Z88.0 Allergy status to penicillin; Z95.1 Presence of aortocoronary bypass graft; Z79.899 Other long term (current) drug therapy; Z98.890 Other specified postprocedural states
CPT/HCPCS: 96372 ×2; 96365; 96366; 96375 ×2; 83735; 84484; 84157; 80053 ×2; 82140 ×2; 85025 ×4; 89051; 85610 ×2; 85730 ×2; 87040 ×2; 87071; 87205; 82948 ×6; 82042; 36415 ×4; 88305; 88112; 71045; 70450 ×2; 76705; 49083; 99291; 93005; 96376 ×2; 84132 ×2; 80048; 82803; 85027; 97161; 97116; 97530 ×2; 36600; 83605; J1815; G0378 ×45; J3475; J3480 ×2; J1644 ×2; P9046; C1729; P9047 ×3; J2060; 80076

== ENCOUNTER → 2024-05-06 | Outpatient (CLI) | payer OTHER ==
[~2024-05-06] MED LIST changes: +APIX2.5T PO
[2024-05-06 09:02] LABS: BASOPHILS # (AUTO) 0.04 K/uL (0.00-0.20); BASOPHILS % (AUTO) 0.7 % (0.0-5.0); EOSINOPHILS # (AUTO) 0.09 K/uL (0.00-0.70); EOSINOPHILS % (AUTO) 1.5 % (0.0-8.0); HEMATOCRIT 32.5 % (42-54); IMMATURE GRANULOCYTE ABSOLUTE 0.04 K/uL (0-1); LYMPHOCYTES % (AUTO) 16.7 % (21.0-51.0); MEAN CORPUSCULAR HEMOGLOBIN 28.1 pg (27.0-33.0); MEAN CORPUSCULAR HGB CONC 33.8 g/dL (32.0-36.0); MEAN CORPUSCULAR VOLUME 82.9 fL (79-99); MONOCYTES # (AUTO) 0.7 K/uL (0.1-1.0); MONOCYTES % (AUTO) 10.7 % (3.0-13.0); NEUTROPHILS # (AUTO) 4.2 K/uL (1.8-7.7); NEUTROPHILS % (AUTO) 69.7 % (40.0-77.0); PLATELET COUNT (AUTO) 171 K/uL (130-400); RED BLOOD CELL COUNT(AUTO) 3.92 MIL/uL (4.50-6.20); RED CELL DISTRIBUTION WIDTH 14.9 % (11.0-15.5); WHITE BLOOD COUNT (AUTO) 6.1 K/uL (4.8-10.8)
[2024-05-06 09:15] LABS: ALBUMIN 2.9 g/dL (3.5-5.0); BILIRUBIN,TOTAL 1.5 mg/dL (0.2-1.0); CREATININE 2.5 mg/dL (0.5-1.3); INR 1.07 (0.85-1.15); PROTHROMBIN TIME 11.5 SEC (9.6-11.6); TOTAL PROTEIN, SERUM 6.5 g/dL (6.0-8.3)
[2024-05-06 09:17] LABS: PARTIAL THROMBOPLASTIN TIME 27.6 SEC (26.3-35.5)
[2024-05-06 09:19] LABS: POTASSIUM 2.7 mmol/L (3.5-5.1)
--- NOTE | 2024-05-06 09:20 | NUR ---
RE: ABNORMAL LABS POTASSIUM 2.7 REPORTED TO [facility]. SPOKE WITH STATION CASHIER AND PENDING CALL BACK. Addendum: 05/06/24 at 1246 by KEVIN FONTENOT RN RN Amended: Links added.
--- NOTE | 2024-05-06 09:45 | NUR ---
U/S GD PARACENTESIS PROCEDURE PERFORMED BY DR Gaby PIERCE. SPECIMEN SENT TO LAB. END OF PROCEDURE AT 0915. CATHETER REMOVED AND DRESSING APPLIED. NO BLEEDING NOTED. ALBUMIN 25% 50 GRAMS IV GIVEN DURING PROCEDURE. [facility] CALLED BACK REGARDING ABNORMAL K+ 2.7 LEVEL. NURSE PRACTITIONER RECOMMENDED PATIENT TO BE EVALUATED BY ER PHYSICIAN AND NOTIFY DR Lindsay ESCALANTE FOR RENAL EVALUATION. PROCEDURE OUTCOME EXPLAINED TO PATIENT AND AND THEY VERBALIZED UNDERSTANDING. PATIENT SENT TO TRIAGE VIA W/C AT 0945. REPORT GIVEN TO ARIN SYED. AAO X3 WITH NO C/O PAIN.
[2024-05-06 13:19] LABS: ALBUMIN,BODY FLUID 1.3 g/dL; TOTAL PROTEIN,BODY FLUID 2.9 g/dL
[2024-05-06 15:20] LABS: BODY FLUID RBC 9 /cu. mm.; BODY FLUID WBC 195 /cu. mm.
[2024-05-06 17:00] LABS: BF LYMPHOCYTE 61 %; BF MACROPHAGE 12; BF MESOTHELIAL 4 %; BF MONOCYTE 5 %; BF TOTAL CELLS COUNTED 100
[2024-05-06 17:01] LABS: APPEARANCE BODY FLUID CLEAR (CLEAR); COLOR,BODY FLUID YELLOW (LT YELLOW); SPECIMENTYPE,BODY FLUID ASCITES; TOTAL VOLUME,BODY FLUID 8000 mL
== END | disposition home or self-care (01) ==
LOC: RAH 07:22
PROVIDERS: ATTEND Internal Medicine
DX: R18.8 Other ascites (principal); R63.4 Abnormal weight loss; Z79.01 Long term (current) use of anticoagulants
CPT/HCPCS: 49083; 84157; 80053; 85025; 89051; 85610; 85730; 87071; 87205; 82042; 36415; 88305; 88112; P9046; C1729

== ENCOUNTER → 2024-05-21 | Outpatient (CLI) | payer OTHER ==
[~2024-05-21] MED LIST changes: +ALBUMIN HUMAN 25% 200 ML IV ONE; +APIX2.5T PO; -APIX5TAB PO
--- NOTE | 2024-05-21 09:50 | NUR ---
U/S GUIDED PARACENTESIS TOLERATED PROCEDURE. PERFORMED BY DR Gaby PIERCE. 9.0 LITERS OF BLOOD TINGED FLUID REMOVED FROM RLQ. ALBUMIN 25% 50 GRAMS GIVEN IV PER PROTOCOL. SPECIMEN SENT TO LAB. END OF PROCEDURE AT 0930. DRESSING DRY AND INTACT. NO BLEEDING NOTED. DISCHARGE VIA WHEELCHAIR. A&O. DENIES PAIN
--- NOTE | 2024-05-21 10:14 | HMCIMG ---
US ABDOMINAL PARACENTESIS IR REASON: ASCITES TECHNIQUE: Paracentesis was performed with ultrasound guidance. The puncture site was selected in the Right lower quadrant and overlying skin prepped and draped in a sterile fashion. 1% Xylocaine infiltration was performed. Catheter was placed in the fluid using trocar technique. 9 L were removed. Fluid sample was submitted for laboratory evaluation. The patient showed no evidence of complication during the procedure. IMPRESSION: 1. Ultrasound-guided paracentesis.
[2024-05-21 12:18] LABS: BODY FLUID RBC 199298 /cu. mm.; BODY FLUID WBC 403 /cu. mm.
[2024-05-21 12:29] LABS: APPEARANCE BODY FLUID CLOUDY (CLEAR); COLOR,BODY FLUID RED (LT YELLOW); SPECIMENTYPE,BODY FLUID ASCITES; TOTAL VOLUME,BODY FLUID 9000 mL
[2024-05-21 13:11] LABS: BF LYMPHOCYTE 50 %; BF MESOTHELIAL 34 %; BF MONOCYTE 3 %; BF TOTAL CELLS COUNTED 100
== END | disposition home or self-care (01) ==
LOC: RAH 07:50
PROVIDERS: ATTEND Internal Medicine
DX: R18.8 Other ascites (principal); M19.90 Unspecified osteoarthritis, unspecified site; K74.60 Unspecified cirrhosis of liver; E11.22 Type 2 diabetes mellitus with diabetic chronic kidney disease; I12.9 Hypertensive chronic kidney disease with stage 1 through stage 4 chronic kidney disease, or unspecified chronic kidney disease; N18.9 Chronic kidney disease, unspecified; K76.82 Hepatic encephalopathy; K21.9 Gastro-esophageal reflux disease without esophagitis; Z90.49 Acquired absence of other specified parts of digestive tract; Z98.890 Other specified postprocedural states; Z79.01 Long term (current) use of anticoagulants; Z79.899 Other long term (current) drug therapy; Z88.0 Allergy status to penicillin
CPT/HCPCS: 49083; 89051; P9046; C1729; 96365